=== PATIENT | male | born 1970 | race Caucasian/White ===

== ENCOUNTER 2021-08-29 17:16 | Inpatient (IN) | payer MEDICARE, MEDICAID ==
[~2021-08-29] VITALS: Ht 172.7 cm; Wt 116.7 kg
[~2021-08-29 17:16] MED LIST: BUM1T PO; CLOP75TA28 PO; LORA10CA7 PO; LOVA20TA4 PO; OMEP20CA74 OR
[2021-08-29 17:57] LABS: Basophils # (auto) 0 10 ^3/uL (0-0.2); Basophils % (auto) 0.5 % (0.0-2.0); Eosinophils # (auto) 0.1 10 ^3/uL (0-0.8); Eosinophils % (auto) 1.7 % (0.0-7.0); Hematocrit 39.2 % (41.0-53.0); Hemoglobin 12.8 g/dL (13.5-17.5); Lymphocytes # (auto) 1.3 10 ^3/uL (0.4-5.4); Lymphocytes % (auto) 20.9 % (10.0-50.0); Mean Corpuscular Hemoglobin 28.8 pg (28.0-32.0); Mean Corpuscular Hgb Conc. 32.6 g/dL (32.0-36.0); Mean Corpuscular Volume 88.5 fL (80.0-100.0); Monocytes # (auto) 0.5 10 ^3/uL (0-1.3); Monocytes % (auto) 8.3 % (0.0-12.0); Neutrophils # (auto) 4.1 10 ^3/uL (1.6-8.6); Neutrophils % (auto) 68.6 % (37.0-80.0); Nucleated Red Blood Cells % 0.1 %; Red Blood Cells 4.43 10^6/uL (4.5-5.90); Red Cell Distribution Width 14.4 % (11.8-14.3)
[2021-08-29 18:12] LABS: Albumin 2.8 g/dL (3.4-5.0); Calcium 8.1 mg/dL (8.5-10.1); Potassium 4.2 mmol/L (3.5-5.1)
[2021-08-29 18:16] LABS: BUN/Creatinine Ratio 3.8; Bilirubin, Total 0.4 mg/dL (0.2-1.0); Total Protein 6.6 g/dL (6.4-8.2)
[2021-08-29] MEDS ORDERED: MORPHINE SULFATE 4 MG/ML SYR/VIAL IV ONE (18:45)
[2021-08-29] MEDS ORDERED: ONDANSETRON HCL 4 MG/2 ML VIAL IV ONE (18:45)
[2021-08-29] MEDS ORDERED: MORPHINE SULFATE INJ 2 MG/ml SYRG IV PRN (21:00)
[2021-08-29] MEDS ORDERED: ONDANSETRON HCL 4 MG/2 ML VIAL IV PRN (21:00)
[2021-08-29] MEDS ORDERED: DEXTROSE (50%) 50ML SYRG IV PRN (21:00)
[2021-08-29] MEDS ORDERED: TEMAZEPAM 15 MG CAP PO PRN (21:00)
[2021-08-29] MEDS ORDERED: NITROGLYCERIN 0.4 MG SL TAB SL PRN (21:00)
[2021-08-29] MEDS ORDERED: ACETAMINOPHEN 325 MG TAB PO PRN (21:00)
[2021-08-29] MEDS ORDERED: ENOXAPARIN SOD 60 MG/0.6 ML SYRINGE SC ONE (21:45)
[2021-08-29] MEDS: InsuLIN REG 1unit/0.01ml Soln (100units/ml) SC SCH (22:00)
[2021-08-29] MEDS: ACCU-CHEK COMFORT CURVE STRIP VI SCH (22:00)
[2021-08-29] MEDS: ATORVASTATIN 20 MG TAB PO SCH (22:02)
[2021-08-30] VITALS (14 sets, daily range): BP systolic 70–128; BP diastolic 22–67
[2021-08-30 04:24] LABS: INR 1.06 (0.9-1.15); Partial Thromboplastin Time 31.4 sec (23.6-33.0)
[2021-08-30] MEDS ORDERED: HEPARIN DRIP/D5W 100UNITS/ML 250 ML IV SCH (06:00)
[2021-08-30] MEDS: BUMETANIDE 1 MG TAB PO SCH ×2 (06:00→18:00)
[2021-08-30 06:32] LABS: Basophils # (auto) 0 10 ^3/uL (0-0.2); Eosinophils # (auto) 0.1 10 ^3/uL (0-0.8); Eosinophils % (auto) 3.2 % (0.0-7.0); Hematocrit 39.6 % (41.0-53.0); Hemoglobin 12.8 g/dL (13.5-17.5); Lymphocytes # (auto) 1.1 10 ^3/uL (0.4-5.4); Lymphocytes % (auto) 25.6 % (10.0-50.0); Mean Corpuscular Hgb Conc. 32.3 g/dL (32.0-36.0); Mean Corpuscular Volume 90.1 fL (80.0-100.0); Monocytes # (auto) 0.5 10 ^3/uL (0-1.3); Monocytes % (auto) 11.9 % (0.0-12.0); Neutrophils # (auto) 2.5 10 ^3/uL (1.6-8.6); Neutrophils % (auto) 58.3 % (37.0-80.0); Nucleated Red Blood Cells % 0.1 %; Red Cell Distribution Width 14.5 % (11.8-14.3); White Blood Cell 4.3 10^3/uL (4.4-10.8)
[2021-08-30 06:42] LABS: Potassium 4.1 mmol/L (3.5-5.1)
[2021-08-30 06:48] LABS: Albumin 2.7 g/dL (3.4-5.0); BUN/Creatinine Ratio 4.3; Calcium 8.4 mg/dL (8.5-10.1)
[2021-08-30 06:57] LABS: Bilirubin, Total 0.4 mg/dL (0.2-1.0); Total Protein 6.4 g/dL (6.4-8.2)
[2021-08-30] MEDS: InsuLIN REG 1unit/0.01ml Soln (100units/ml) SC SCH ×4 (07:00→21:59)
[2021-08-30] MEDS: ACCU-CHEK COMFORT CURVE STRIP VI SCH ×4 (07:07→21:43)
[2021-08-30] MEDS: SEVELAMER 800 MG TAB PO SCH ×3 (08:00→18:00)
[2021-08-30] MEDS: CLOPIDOGREL BISULFATE 75 MG TAB PO SCH (10:00)
[2021-08-30] MEDS ORDERED: PANTOPRAZOLE 40 MG TAB PO SCH (10:00)
[2021-08-30] MEDS: ASPirin 81 mg TAB PO SCH (10:00)
[2021-08-30] MEDS ORDERED: ANGIOMAX 250 MG VIAL IV ONE (11:10)
[2021-08-30] MEDS ORDERED: fentaNYL CITRATE 100 MCG/2 ML VL ONE (11:11)
[2021-08-30] MEDS ORDERED: LIDOCAINE 2%HCL (LOCAL ANESTH.) INJ 10ml MDV ONE (11:11)
[2021-08-30] MEDS ORDERED: SODIUM CHL 0.9% 0 ML ONE (11:11)
[2021-08-30] MEDS ORDERED: MIDAZOLAM HCL 2MG/2ML 2ml VIAL (1mg/ml) ONE (11:11)
[2021-08-30] MEDS ORDERED: HEPARIN SODIUM (PORCINE) 5000 UNITS/ML 1ML VIAL ONE (11:26)
[2021-08-30] MEDS ORDERED: SODIUM CHL 0.9% 1000 ML BAG XX ONE (11:30)
[2021-08-30] MEDS ORDERED: cloNIDine HCL 0.1 MG TAB PO PRN (11:45)
[2021-08-30] MEDS ORDERED: CLOPIDOGREL 300 MG TAB ONE (11:46)
[2021-08-30] MEDS ORDERED: ASPirin 325 MG TAB ONE (11:46)
[2021-08-30] MEDS ORDERED: HYDROcodone-ACET 5/325MG TAB ONE (13:28)
[2021-08-30] MEDS ORDERED: HYDROcodone-ACET 5/325MG TAB PO PRN (13:30)
[2021-08-30] MEDS ORDERED: ERGO1CAP12 PO (18:10)
[2021-08-30] MEDS ORDERED: TRAZ100T3 PO (18:10)
[2021-08-30] MEDS ORDERED: HYDR-4798 (18:10)
[2021-08-30] MEDS ORDERED: INSU1INJ13 SC (18:10)
[2021-08-30] MEDS ORDERED: ALPR0.5T8 PO (18:10)
[2021-08-30] MEDS ORDERED: ALBUMIN 25% 50 ML IV ONE ×2 (20:00→20:30)
[2021-08-30] MEDS ORDERED: EPOETIN ALFA-EPBX 10,000 UNIT/1ML VIAL SC ONE (21:00)
[2021-08-30] MEDS: ATORVASTATIN 20 MG TAB PO SCH (22:03)
[2021-08-31 04:36] VITALS: BP 127/55
[2021-08-31] MEDS: BUMETANIDE 1 MG TAB PO SCH ×2 (06:00→18:00)
[2021-08-31 06:18] LABS: BUN/Creatinine Ratio 4.4; Calcium 7.8 mg/dL (8.5-10.1); Potassium 4.6 mmol/L (3.5-5.1)
[2021-08-31] MEDS: InsuLIN REG 1unit/0.01ml Soln (100units/ml) SC SCH ×4 (06:18→22:00)
[2021-08-31] MEDS: ACCU-CHEK COMFORT CURVE STRIP VI SCH ×4 (06:21→21:55)
[2021-08-31 06:29] LABS: Basophils # (auto) 0 10 ^3/uL (0-0.2); Basophils % (auto) 0.5 % (0.0-2.0); Eosinophils # (auto) 0.1 10 ^3/uL (0-0.8); Eosinophils % (auto) 2.6 % (0.0-7.0); Hematocrit 38.5 % (41.0-53.0); Hemoglobin 12.1 g/dL (13.5-17.5); Lymphocytes # (auto) 0.8 10 ^3/uL (0.4-5.4); Lymphocytes % (auto) 15.1 % (10.0-50.0); Mean Corpuscular Hemoglobin 28.5 pg (28.0-32.0); Mean Corpuscular Hgb Conc. 31.3 g/dL (32.0-36.0); Mean Corpuscular Volume 90.9 fL (80.0-100.0); Monocytes # (auto) 0.5 10 ^3/uL (0-1.3); Neutrophils # (auto) 3.7 10 ^3/uL (1.6-8.6); Neutrophils % (auto) 71.8 % (37.0-80.0); Nucleated Red Blood Cells % 0.1 %; Red Blood Cells 4.23 10^6/uL (4.5-5.90); Red Cell Distribution Width 14.6 % (11.8-14.3); White Blood Cell 5.1 10^3/uL (4.4-10.8)
[2021-08-31] MEDS: SEVELAMER 800 MG TAB PO SCH ×2 (08:23→18:29)
[2021-08-31] MEDS ORDERED: ALPRAZolam 0.5 MG TAB PO PRN ×2 (08:45→12:16)
[2021-08-31 09:00] VITALS: BP 109/42
[2021-08-31] MEDS ORDERED: ALL100T PO (09:16)
[2021-08-31] MEDS ORDERED: ALPR0.5T PO (09:30)
[2021-08-31] MEDS ORDERED: CALC667C5 PO (09:30)
[2021-08-31] MEDS ORDERED: SIMV-8 PO (09:30)
[2021-08-31] MEDS ORDERED: INSU100I33 SC (09:30)
[2021-08-31] MEDS ORDERED: PAR20T PO (09:30)
[2021-08-31] MEDS ORDERED: ALB5IS NEB (09:30)
[2021-08-31] MEDS ORDERED: LORA-483 PO (09:30)
[2021-08-31] MEDS ORDERED: MONT-8 PO (09:30)
[2021-08-31] MEDS ORDERED: OME20GT PO (09:30)
[2021-08-31] MEDS ORDERED: GABA300C10 PO (09:30)
[2021-08-31] MEDS ORDERED: B-COTAB94 OR (09:30)
[2021-08-31] MEDS ORDERED: FENO145T27 PO (09:30)
[2021-08-31] MEDS ORDERED: HYDR-4798 PO (09:30)
[2021-08-31] MEDS ORDERED: SEVE800T8 PO (09:30)
[2021-08-31] MEDS ORDERED: TRAZ100T3 PO (09:30)
[2021-08-31] MEDS: ASPirin 81 mg TAB PO SCH (10:17)
[2021-08-31] MEDS: CLOPIDOGREL BISULFATE 75 MG TAB PO SCH (10:17)
[2021-08-31] MEDS ORDERED: ERGOCALCIFEROL 50,000 UNIT(1.25MG) CAP PO SCH (12:15)
[2021-08-31] MEDS ORDERED: HYDROcodone-ACET 10/325MG TAB PO PRN (12:15)
[2021-08-31 13:00] VITALS: BP 107/38
[2021-08-31] MEDS ORDERED: CALCIUM ACETATE 667 MG CAP PO SCH ×2 (14:00)
[2021-08-31] MEDS ORDERED: PATIENTS OWN MEDICATION (Sevelamer Carbonate (Renvela) 2 TAB) PO SCH (14:00)
[2021-08-31] MEDS: ALPRAZolam 0.5 MG TAB PO SCH ×2 (14:01→21:44)
[2021-08-31] MEDS ORDERED: diphenhdrAMINE HCL 25 MG CAP PO ONE (15:30)
[2021-08-31] MEDS ORDERED: PANTOPRAZOLE 40 MG/10 ML VIAL INJ IV ONE (16:00)
[2021-08-31 16:56] VITALS: BP 121/51
[2021-08-31] MEDS ORDERED: PATIENTS OWN MEDICATION (Simvastatin 1 TAB) PO SCH (18:00)
[2021-08-31] MEDS: CALCIUM ACETATE 667 MG CAP PO SCH (18:29)
[2021-08-31 20:00] VITALS: BP 130/61
[2021-08-31 22:00] VITALS: BP 130/61
[2021-08-31] MEDS ORDERED: traZODone HCL 50 MG TAB PO SCH (22:00)
[2021-08-31] MEDS ORDERED: PATIENTS OWN MEDICATION (Fenofibrate 160 MG) PO SCH (22:00)
[2021-08-31] MEDS ORDERED: MONTELUKAST SODIUM 10 MG TAB PO SCH (22:00)
[2021-08-31] MEDS ORDERED: GABAPENTIN 300 MG CAP PO SCH (22:00)
[2021-08-31] MEDS ORDERED: ATORVASTATIN 20 MG TAB PO SCH (22:00)
[2021-08-31] MEDS ORDERED: PANTOPRAZOLE 40 MG/10 ML VIAL INJ IV SCH (22:00)
[2021-09-01 05:00] VITALS: BP 142/54
[2021-09-01 05:38] LABS: Basophils # (auto) 0 10 ^3/uL (0-0.2); Basophils % (auto) 0.6 % (0.0-2.0); Eosinophils # (auto) 0.2 10 ^3/uL (0-0.8); Eosinophils % (auto) 4.5 % (0.0-7.0); Hematocrit 36.5 % (41.0-53.0); Hemoglobin 12.3 g/dL (13.5-17.5); Lymphocytes # (auto) 0.8 10 ^3/uL (0.4-5.4); Lymphocytes % (auto) 20.9 % (10.0-50.0); Mean Corpuscular Hemoglobin 29.8 pg (28.0-32.0); Mean Corpuscular Hgb Conc. 33.6 g/dL (32.0-36.0); Mean Corpuscular Volume 88.8 fL (80.0-100.0); Monocytes # (auto) 0.4 10 ^3/uL (0-1.3); Monocytes % (auto) 9.9 % (0.0-12.0); Neutrophils # (auto) 2.5 10 ^3/uL (1.6-8.6); Neutrophils % (auto) 64.1 % (37.0-80.0); Red Blood Cells 4.12 10^6/uL (4.5-5.90); Red Cell Distribution Width 14.7 % (11.8-14.3); White Blood Cell 3.9 10^3/uL (4.4-10.8)
[2021-09-01] MEDS: BUMETANIDE 1 MG TAB PO SCH ×3 (05:42→18:00)
[2021-09-01] MEDS: ALPRAZolam 0.5 MG TAB PO SCH ×2 (05:42→14:34)
[2021-09-01] MEDS: ACCU-CHEK COMFORT CURVE STRIP VI SCH ×3 (05:43→17:00)
[2021-09-01] MEDS: InsuLIN REG 1unit/0.01ml Soln (100units/ml) SC SCH ×3 (06:03→17:00)
[2021-09-01 06:09] LABS: Potassium 4.7 mmol/L (3.5-5.1)
[2021-09-01 06:13] LABS: BUN/Creatinine Ratio 5.3
[2021-09-01 06:21] LABS: % Iron Saturation 11.7 % (20-55)
[2021-09-01] MEDS ORDERED: SODIUM CHL 0.9% 1000 ML BAG XX ONE (07:00)
[2021-09-01] MEDS ORDERED: OMEPRAZOLE 20MG/10ML ORAL SUSP PO SCH (08:00)
[2021-09-01] MEDS ORDERED: LORATADINE 10 MG TAB PO SCH (08:00)
[2021-09-01] MEDS ORDERED: INSULIN DEGLUDEC 32 UNIT SC SCH (08:00)
[2021-09-01 09:00] VITALS: BP 133/64
[2021-09-01] MEDS: CALCIUM ACETATE 667 MG CAP PO SCH ×2 (09:02→12:15)
[2021-09-01] MEDS: SEVELAMER 800 MG TAB PO SCH ×2 (09:02→12:14)
[2021-09-01] MEDS ORDERED: PARoxetine 20 MG TAB PO SCH (10:00)
[2021-09-01] MEDS ORDERED: ALLOPURINOL 100 MG TAB PO SCH (10:00)
[2021-09-01] MEDS ORDERED: PANTOPRAZOLE 40 MG TAB PO SCH (10:00)
[2021-09-01] MEDS: CLOPIDOGREL BISULFATE 75 MG TAB PO SCH (10:40)
[2021-09-01] MEDS: ASPirin 81 mg TAB PO SCH (10:40)
[2021-09-01] MEDS ORDERED: ASPI-463 PO (10:45)
[2021-09-01] MEDS ORDERED: CLOP75TA28 PO (10:45)
[2021-09-01 13:00] VITALS: BP 124/47
[2021-09-01 17:00] VITALS: BP 155/52
[2021-09-01] MEDS ORDERED: EPOETIN ALFA-EPBX 4,000 UNIT/ML VIAL SC ONE (21:00)
== END 2021-09-01 20:25 | disposition home or self-care (01) | DRG 246 ==
LOC: ER 17:16 → EDBD 17:16 → TELE 20:52 → TELE-WESTW 08-30 16:05
PROVIDERS: ADMIT Nurse Practitioner; ATTEND Family Medicine
PROC: B2111ZZ Fluoroscopy of Multiple Coronary Arteries using Low Osmolar Contrast (ICD-10-PCS; principal; 2021-08-30)
PROC: 027135Z Dilation of Coronary Artery, Two Arteries with Two Drug-eluting Intraluminal Devices, Percutaneous Approach (ICD-10-PCS; 2021-08-30)
PROC: 02C13ZZ Extirpation of Matter from Coronary Artery, Two Arteries, Percutaneous Approach (ICD-10-PCS; 2021-08-30)
PROC: 4A023N7 Measurement of Cardiac Sampling and Pressure, Left Heart, Percutaneous Approach (ICD-10-PCS; 2021-08-30)
PROC: 4A033BC Measurement of Arterial Pressure, Coronary, Percutaneous Approach (ICD-10-PCS; 2021-08-30)
PROC: B2151ZZ Fluoroscopy of Left Heart using Low Osmolar Contrast (ICD-10-PCS; 2021-08-30)
DX: I21.4 Non-ST elevation (NSTEMI) myocardial infarction (principal); N18.6 End stage renal disease; E43 Unspecified severe protein-calorie malnutrition; I12.0 Hypertensive chronic kidney disease with stage 5 chronic kidney disease or end stage renal disease; E11.22 Type 2 diabetes mellitus with diabetic chronic kidney disease; E11.40 Type 2 diabetes mellitus with diabetic neuropathy, unspecified; D63.1 Anemia in chronic kidney disease; Z20.822 Contact with and (suspected) exposure to COVID-19; E66.01 Morbid (severe) obesity due to excess calories; E78.00 Pure hypercholesterolemia, unspecified; E78.5 Hyperlipidemia, unspecified; E87.70 Fluid overload, unspecified; I25.10 Atherosclerotic heart disease of native coronary artery without angina pectoris; J44.9 Chronic obstructive pulmonary disease, unspecified; Z88.8 Allergy status to other drugs, medicaments and biological substances; Z99.2 Dependence on renal dialysis; Z68.39 Body mass index [BMI] 39.0-39.9, adult
CPT/HCPCS: 36415; 71045; 80048; 80053; 82728; 82962; 83540; 83550; 83880; 84484; 85025; 85379; 85610; 85730; 87340; 93005; 93306; 96365; 96372; 96375; 96376; 99152; 99153; 99291; C1724; C1874; C9113; G0378; J1815; J2001; J2250; J2405

== ENCOUNTER 2021-09-23 15:44 | Inpatient (IN) | payer MEDICARE, MEDICAID ==
[~2021-09-23] VITALS: Ht 177.8 cm; Wt 114.0 kg
[~2021-09-23 15:44] MED LIST changes: +ALB5IS NEB; +ALL100T PO; +ALPR0.5T PO; +ASPI-463 PO; +B-COTAB94 OR; +CALC667C5 PO; +ERGO1CAP12 PO; +FENO145T27 PO; +GABA300C10 PO; +HYDR-4798 PO; +INSU100I33 SC; +LORA-483 PO; -LORA10CA7 PO; +MONT-8 PO; +OME20GT PO; -OMEP20CA74 OR; +PAR20T PO; +SEVE800T8 PO; +SIMV-8 PO; +TRAZ100T3 PO
[2021-09-23] MEDS ORDERED: ASPirin 81 mg TAB PO ONE (16:15)
[2021-09-23 16:34] LABS: Basophils # (auto) 0.1 10 ^3/uL (0-0.2); Basophils % (auto) 0.9 % (0.0-2.0); Eosinophils # (auto) 0.1 10 ^3/uL (0-0.8); Hematocrit 39.8 % (41.0-53.0); Hemoglobin 12.9 g/dL (13.5-17.5); Lymphocytes % (auto) 14.3 % (10.0-50.0); Mean Corpuscular Hemoglobin 28.4 pg (28.0-32.0); Mean Corpuscular Hgb Conc. 32.4 g/dL (32.0-36.0); Mean Corpuscular Volume 87.7 fL (80.0-100.0); Monocytes # (auto) 0.7 10 ^3/uL (0-1.3); Monocytes % (auto) 9.7 % (0.0-12.0); Neutrophils # (auto) 5.1 10 ^3/uL (1.6-8.6); Neutrophils % (auto) 73.1 % (37.0-80.0); Red Blood Cells 4.54 10^6/uL (4.5-5.90)
[2021-09-23 16:43] LABS: Albumin 2.6 g/dL (3.4-5.0); Calcium 8.5 mg/dL (8.5-10.1); Potassium 3.8 mmol/L (3.5-5.1)
[2021-09-23 16:46] LABS: BUN/Creatinine Ratio 4.9
[2021-09-23 16:47] LABS: Bilirubin, Total 0.6 mg/dL (0.2-1.0); Total Protein 7.2 g/dL (6.4-8.2)
[2021-09-23] MEDS ORDERED: HEPARIN SODIUM (PORCINE) 5000 UNITS/ML 1ML VIAL IV ONE (17:30)
[2021-09-23] MEDS ORDERED: ONDANSETRON HCL 4 MG/2 ML VIAL IV ONE (17:45)
[2021-09-23 17:57] LABS: INR 0.99 (0.9-1.15); Partial Thromboplastin Time 31.8 sec (23.6-33.0)
[2021-09-23] MEDS: HEPARIN DRIP/D5W 100UNITS/ML 250 ML IV SCH (19:01)
[2021-09-23] MEDS ORDERED: TEMAZEPAM 15 MG CAP PO PRN (21:30)
[2021-09-23] MEDS ORDERED: MORPHINE SULFATE INJ 2 MG/ml SYRG IV PRN (21:30)
[2021-09-23] MEDS ORDERED: NITROGLYCERIN 0.4 MG SL TAB SL PRN (21:30)
[2021-09-23] MEDS ORDERED: DEXTROSE (50%) 50ML SYRG IV PRN (21:30)
[2021-09-23] MEDS ORDERED: ACETAMINOPHEN 325 MG TAB PO PRN (21:30)
[2021-09-23] MEDS ORDERED: ATORVASTATIN 20 MG TAB PO SCH (22:00)
[2021-09-24] VITALS (12 sets, daily range): BP systolic 119–150; BP diastolic 49–85
[2021-09-24] MEDS: ACCU-CHEK COMFORT CURVE STRIP VI SCH ×5 (05:34→23:33)
[2021-09-24] MEDS: InsuLIN REG 1unit/0.01ml Soln (100units/ml) SC SCH ×5 (05:34→23:34)
[2021-09-24] MEDS: HEPARIN DRIP/D5W 100UNITS/ML 250 ML IV SCH (06:49)
[2021-09-24 07:27] LABS: Basophils # (auto) 0 10 ^3/uL (0-0.2); Basophils % (auto) 0.8 % (0.0-2.0); Eosinophils # (auto) 0.2 10 ^3/uL (0-0.8); Eosinophils % (auto) 2.8 % (0.0-7.0); Hematocrit 38.8 % (41.0-53.0); Hemoglobin 12.2 g/dL (13.5-17.5); Lymphocytes # (auto) 1.1 10 ^3/uL (0.4-5.4); Lymphocytes % (auto) 19.5 % (10.0-50.0); Mean Corpuscular Hemoglobin 28.3 pg (28.0-32.0); Mean Corpuscular Hgb Conc. 31.6 g/dL (32.0-36.0); Mean Corpuscular Volume 89.7 fL (80.0-100.0); Monocytes # (auto) 0.8 10 ^3/uL (0-1.3); Monocytes % (auto) 14.1 % (0.0-12.0); Neutrophils # (auto) 3.5 10 ^3/uL (1.6-8.6); Neutrophils % (auto) 62.8 % (37.0-80.0); Nucleated Red Blood Cells % 0.3 %; Red Blood Cells 4.32 10^6/uL (4.5-5.90); White Blood Cell 5.6 10^3/uL (4.4-10.8)
[2021-09-24 07:44] LABS: INR 0.99 (0.9-1.15); Partial Thromboplastin Time 53.5 sec (23.6-33.0)
[2021-09-24 07:46] LABS: Alanine Aminotransferase 22 U/L (16-61); Albumin 2.3 g/dL (3.4-5.0); Anion Gap 11 (5-15); Aspartate Aminotransferase 48 U/L (15-37); BUN/Creatinine Ratio 5.1; Blood Urea Nitrogen 52 mg/dL (7-18); Carbon Dioxide 25 mmol/L (21-32); Chloride 102 mmol/L (98-107); GFR African American 7 mL/min; GFR Non-African American 6 mL/min; Glucose 184 mg/dL (74-106); Potassium 4.2 mmol/L (3.5-5.1); Sodium 138 mmol/L (136-145)
[2021-09-24 07:48] LABS: Alkaline Phosphatase 83 U/L (45-117); Bilirubin, Total 0.5 mg/dL (0.2-1.0); Total Protein 6.4 g/dL (6.4-8.2)
[2021-09-24] MEDS ORDERED: MORPHINE SULFATE INJ 2 MG/ml SYRG IV ONE (08:00)
[2021-09-24 08:59] LABS: Cholesterol 90 mg/dL (< 200); Triglycerides 93 mg/dL (< 150)
[2021-09-24 09:02] LABS: HDL Cholesterol 40 mg/dL (40-59); LDL Cholesterol 46 mg/dL (< 100)
[2021-09-24] MEDS ORDERED: VERAPAMIL 2.5MG/ML INJ 2ML VIAL IV ONE (09:45)
[2021-09-24] MEDS ORDERED: ANGIOMAX 250 MG VIAL IV ONE (09:45)
[2021-09-24] MEDS ORDERED: MIDAZOLAM HCL 2MG/2ML 2ml VIAL (1mg/ml) ONE (09:45)
[2021-09-24] MEDS ORDERED: fentaNYL CITRATE 100 MCG/2 ML VL ONE (09:45)
[2021-09-24] MEDS ORDERED: SODIUM CHL 0.9% 0 ML ONE (09:45)
[2021-09-24] MEDS ORDERED: CLOPIDOGREL BISULFATE 75 MG TAB PO SCH (10:00)
[2021-09-24] MEDS ORDERED: IODIXANOL 320MG/ML 100ML BTL IV ONE ×2 (10:33→11:02)
[2021-09-24] MEDS ORDERED: HEPARIN SODIUM (PORCINE) 5000 UNITS/ML 1ML VIAL ONE (10:37)
[2021-09-24] MEDS ORDERED: EPTIFIBATIDE INJ (2MG/ML) 10ML VIAL IV ONE (10:57)
[2021-09-24] MEDS ORDERED: TICAGRELOR 90 MG TAB ONE (11:13)
[2021-09-24] MEDS ORDERED: HYDR-4798 PO (17:03)
[2021-09-24] MEDS: PANTOPRAZOLE 40 MG/10 ML VIAL INJ IV SCH (17:53)
[2021-09-24] MEDS: ASPirin 81 mg TAB PO SCH (18:06)
[2021-09-24] MEDS: ONDANSETRON HCL 4 MG/2 ML VIAL IV PRN (18:58)
[2021-09-24] MEDS: TICAGRELOR 90 MG TAB PO SCH (21:38)
[2021-09-24] MEDS: ATORVASTATIN 20 MG TAB PO SCH (21:38)
[2021-09-24] MEDS: METOPROLOL TARTRATE 25 MG TAB PO SCH (21:39)
[2021-09-24] MEDS ORDERED: TICAGRELOR 90 MG TAB PO SCH (22:00)
[2021-09-25 04:55] VITALS: BP 139/52
[2021-09-25 05:22] LABS: Basophils # (auto) 0.1 10 ^3/uL (0-0.2); Basophils % (auto) 0.9 % (0.0-2.0); Eosinophils # (auto) 0.2 10 ^3/uL (0-0.8); Eosinophils % (auto) 2.8 % (0.0-7.0); Hematocrit 37.6 % (41.0-53.0); Hemoglobin 12.4 g/dL (13.5-17.5); Lymphocytes # (auto) 0.9 10 ^3/uL (0.4-5.4); Lymphocytes % (auto) 15.7 % (10.0-50.0); Mean Corpuscular Hgb Conc. 32.9 g/dL (32.0-36.0); Mean Corpuscular Volume 88.4 fL (80.0-100.0); Monocytes # (auto) 0.7 10 ^3/uL (0-1.3); Monocytes % (auto) 12.5 % (0.0-12.0); Neutrophils # (auto) 3.8 10 ^3/uL (1.6-8.6); Neutrophils % (auto) 68.1 % (37.0-80.0); Nucleated Red Blood Cells % 0.1 %; Red Blood Cells 4.26 10^6/uL (4.5-5.90); White Blood Cell 5.6 10^3/uL (4.4-10.8)
[2021-09-25] MEDS: ACCU-CHEK COMFORT CURVE STRIP VI SCH ×4 (05:33→23:23)
[2021-09-25] MEDS: InsuLIN REG 1unit/0.01ml Soln (100units/ml) SC SCH ×4 (05:34→23:24)
[2021-09-25 05:37] LABS: Potassium 4.4 mmol/L (3.5-5.1)
[2021-09-25 05:49] LABS: Albumin 2.2 g/dL (3.4-5.0); BUN/Creatinine Ratio 5.8; Bilirubin, Total 0.4 mg/dL (0.2-1.0); Total Protein 6.4 g/dL (6.4-8.2)
[2021-09-25] MEDS ORDERED: SODIUM CHL 0.9% 1000 ML BAG XX ONE (07:00)
[2021-09-25 09:00] VITALS: BP 138/66
[2021-09-25] MEDS: PANTOPRAZOLE 40 MG/10 ML VIAL INJ IV SCH (09:04)
[2021-09-25] MEDS: ASPirin 81 mg TAB PO SCH (09:05)
[2021-09-25] MEDS: TICAGRELOR 90 MG TAB PO SCH ×2 (09:11→21:57)
[2021-09-25] MEDS: HYDROcodone-ACET 10/325MG TAB PO PRN (09:12)
[2021-09-25] MEDS: METOPROLOL TARTRATE 25 MG TAB PO SCH ×2 (10:00→22:04)
[2021-09-25] MEDS: ONDANSETRON HCL 4 MG/2 ML VIAL IV PRN (10:06)
[2021-09-25] MEDS: APIXABAN 5 MG TAB PO SCH ×2 (10:15→21:57)
[2021-09-25 10:52] LABS: Free T3 1.78 pg/mL (2.3-4.2); Free T4 (Free Thyroxine) 0.72 ng/dL (0.89-1.76)
[2021-09-25 13:00] VITALS: BP 131/56
[2021-09-25 17:00] VITALS: BP 140/38
[2021-09-25] MEDS: amLODIPine BESYLATE 5 MG TAB PO SCH (17:59)
[2021-09-25] MEDS: ATORVASTATIN 20 MG TAB PO SCH (21:57)
[2021-09-25 22:00] VITALS: BP 97/33
[2021-09-25] MEDS ORDERED: ALPRAZolam 0.5 MG TAB PO SCH (22:00)
[2021-09-26 05:00] VITALS: BP 108/30
[2021-09-26] MEDS: ACCU-CHEK COMFORT CURVE STRIP VI SCH ×2 (05:29→13:07)
[2021-09-26] MEDS: InsuLIN REG 1unit/0.01ml Soln (100units/ml) SC SCH ×2 (05:30→13:06)
[2021-09-26] MEDS ORDERED: METO25TA5 PO (08:06)
[2021-09-26] MEDS ORDERED: APIX5TAB PO (08:06)
[2021-09-26] MEDS ORDERED: TICA90TA PO (08:06)
[2021-09-26 08:20] VITALS: BP 131/37
[2021-09-26 09:00] VITALS: BP 131/37
[2021-09-26] MEDS: APIXABAN 5 MG TAB PO SCH (09:46)
[2021-09-26] MEDS: PANTOPRAZOLE 40 MG/10 ML VIAL INJ IV SCH (09:46)
[2021-09-26] MEDS: amLODIPine BESYLATE 5 MG TAB PO SCH (09:48)
[2021-09-26] MEDS: ASPirin 81 mg TAB PO SCH (09:48)
[2021-09-26] MEDS: METOPROLOL TARTRATE 25 MG TAB PO SCH (09:49)
[2021-09-26] MEDS: HYDROcodone-ACET 10/325MG TAB PO PRN (09:50)
[2021-09-26] MEDS: TICAGRELOR 90 MG TAB PO SCH (11:10)
[2021-09-26 12:37] VITALS: BP 131/37
[2021-09-26 13:00] VITALS: BP 120/43
== END 2021-09-26 14:35 | disposition home or self-care (01) | DRG 246 ==
LOC: EDBD 15:44 → ER 15:44 → TELE 21:22 → TELE-CENTR 09-24 15:46
PROVIDERS: ADMIT Nurse Practitioner; ATTEND Family Medicine
PROC: 027034Z Dilation of Coronary Artery, One Artery with Drug-eluting Intraluminal Device, Percutaneous Approach (ICD-10-PCS; principal; 2021-09-24)
PROC: 4A023N7 Measurement of Cardiac Sampling and Pressure, Left Heart, Percutaneous Approach (ICD-10-PCS; 2021-09-24)
PROC: B211YZZ Fluoroscopy of Multiple Coronary Arteries using Other Contrast (ICD-10-PCS; 2021-09-24)
PROC: B215YZZ Fluoroscopy of Left Heart using Other Contrast (ICD-10-PCS; 2021-09-24)
PROC: B240ZZ3 Ultrasonography of Single Coronary Artery, Intravascular (ICD-10-PCS; 2021-09-24)
PROC: 3E073PZ Introduction of Platelet Inhibitor into Coronary Artery, Percutaneous Approach (ICD-10-PCS; 2021-09-24)
PROC: 5A1D70Z Performance of Urinary Filtration, Intermittent, Less than 6 Hours Per Day (ICD-10-PCS; 2021-09-25)
DX: T82.855A Stenosis of coronary artery stent, initial encounter (principal); I21.4 Non-ST elevation (NSTEMI) myocardial infarction; N18.6 End stage renal disease; I12.0 Hypertensive chronic kidney disease with stage 5 chronic kidney disease or end stage renal disease; I82.621 Acute embolism and thrombosis of deep veins of right upper extremity; E11.22 Type 2 diabetes mellitus with diabetic chronic kidney disease; E11.42 Type 2 diabetes mellitus with diabetic polyneuropathy; E66.01 Morbid (severe) obesity due to excess calories; E78.5 Hyperlipidemia, unspecified; I25.10 Atherosclerotic heart disease of native coronary artery without angina pectoris; Z20.822 Contact with and (suspected) exposure to COVID-19; Y84.0 Cardiac catheterization as the cause of abnormal reaction of the patient, or of later complication, without mention of misadventure at the time of the procedure; J45.909 Unspecified asthma, uncomplicated; Z79.4 Long term (current) use of insulin; Z99.2 Dependence on renal dialysis; I25.2 Old myocardial infarction; Z95.5 Presence of coronary angioplasty implant and graft; Y92.89 Other specified places as the place of occurrence of the external cause; Z68.36 Body mass index [BMI] 36.0-36.9, adult; Z88.1 Allergy status to other antibiotic agents
CPT/HCPCS: 36415; 71045; 76881; 78582; 80053; 80061; 82962; 83036; 83880; 84439; 84443; 84481; 84484; 85025; 85610; 85730; 90935; 92928; 92978; 93005; 93458; 93971; 96374; 96375; 99152; 99153; C1874; C1887; C9113; G0378; J1815; J2250; J2405; Q9967

== ENCOUNTER 2021-09-27 10:12 | Inpatient (IN) | payer MEDICARE, MEDICAID ==
[~2021-09-27] VITALS: Ht 182.9 cm; Wt 119.1 kg
[~2021-09-27 10:12] MED LIST changes: +APIX5TAB PO; +METO25TA5 PO; +TICA90TA PO
[2021-09-27 11:05] LABS: Basophils # (auto) 0 10 ^3/uL (0-0.2); Basophils % (auto) 0.5 % (0.0-2.0); Eosinophils # (auto) 0.1 10 ^3/uL (0-0.8); Eosinophils % (auto) 1.6 % (0.0-7.0); Hematocrit 37.2 % (41.0-53.0); Hemoglobin 11.7 g/dL (13.5-17.5); Lymphocytes # (auto) 0.7 10 ^3/uL (0.4-5.4); Lymphocytes % (auto) 14.7 % (10.0-50.0); Mean Corpuscular Hemoglobin 27.6 pg (28.0-32.0); Mean Corpuscular Hgb Conc. 31.4 g/dL (32.0-36.0); Mean Corpuscular Volume 87.9 fL (80.0-100.0); Monocytes # (auto) 0.6 10 ^3/uL (0-1.3); Monocytes % (auto) 10.9 % (0.0-12.0); Neutrophils # (auto) 3.7 10 ^3/uL (1.6-8.6); Neutrophils % (auto) 72.3 % (37.0-80.0); Nucleated Red Blood Cells % 0.1 %; Red Blood Cells 4.23 10^6/uL (4.5-5.90); Red Cell Distribution Width 15.8 % (11.8-14.3); White Blood Cell 5.1 10^3/uL (4.4-10.8)
[2021-09-27 11:19] LABS: Albumin 2.6 g/dL (3.4-5.0); BUN/Creatinine Ratio 5.7; Calcium 8.9 mg/dL (8.5-10.1); Magnesium 2.3 mg/dL (1.6-2.6)
[2021-09-27 11:21] LABS: Bilirubin, Total 0.7 mg/dL (0.2-1.0); Partial Thromboplastin Time 32.1 sec (23.6-33.0); Phosphorus 3.8 mg/dL (2.5-4.90); Total Protein 6.9 g/dL (6.4-8.2)
[2021-09-27] MEDS ORDERED: ASPirin 325 MG TAB PO ONE (12:15)
[2021-09-27] MEDS ORDERED: NITROGLYCERIN 0.4 MG SL TAB SL PRN (12:30)
[2021-09-27] MEDS ORDERED: TICAGRELOR 90 MG TAB PO ONE (12:30)
[2021-09-27] MEDS ORDERED: MORPHINE SULFATE INJ 2 MG/ml SYRG IV PRN (12:30)
[2021-09-27] MEDS ORDERED: AMIODARONE HCL 200 MG TAB PO ONE (12:30)
[2021-09-27] MEDS ORDERED: DEXTROSE (50%) 50ML SYRG IV PRN (14:00)
[2021-09-27] MEDS: InsuLIN REG 1unit/0.01ml Soln (100units/ml) SC SCH ×2 (17:41→22:10)
[2021-09-27] MEDS: ACCU-CHEK COMFORT CURVE STRIP VI SCH ×2 (17:43→22:10)
[2021-09-27] MEDS ORDERED: AMIODARONE HCL 150 MG in D5W 5% 100 ML IV ONE (18:30)
[2021-09-27] MEDS ORDERED: AMIODARONE 450mg/250ml AE 250 ML IV SCH (18:45)
[2021-09-27] MEDS ORDERED: AMIODARONE HCL 200 MG TAB PO SCH (22:00)
[2021-09-27] MEDS: TICAGRELOR 90 MG TAB PO SCH (22:08)
[2021-09-27] MEDS: INSULIN LANTUS (GLARGINE) 1 /0.01ml (100units/ml) SC SCH (22:11)
[2021-09-28] VITALS (7 sets, daily range): BP systolic 123–138; BP diastolic 45–65
[2021-09-28] MEDS: AMIODARONE 450mg/250ml AE 250 ML IV SCH (01:09)
[2021-09-28 05:35] LABS: Potassium 4.2 mmol/L (3.5-5.1)
[2021-09-28 05:56] LABS: Albumin 2.4 g/dL (3.4-5.0); BUN/Creatinine Ratio 5.2; Bilirubin, Total 0.5 mg/dL (0.2-1.0); Calcium 8.3 mg/dL (8.5-10.1); Total Protein 6.7 g/dL (6.4-8.2)
[2021-09-28 06:02] LABS: Basophils # (auto) 0 10 ^3/uL (0-0.2); Basophils % (auto) 0.7 % (0.0-2.0); Eosinophils # (auto) 0.2 10 ^3/uL (0-0.8); Eosinophils % (auto) 3.6 % (0.0-7.0); Hematocrit 36.4 % (41.0-53.0); Hemoglobin 11.6 g/dL (13.5-17.5); Lymphocytes # (auto) 0.8 10 ^3/uL (0.4-5.4); Lymphocytes % (auto) 16.3 % (10.0-50.0); Mean Corpuscular Hemoglobin 27.9 pg (28.0-32.0); Mean Corpuscular Hgb Conc. 31.8 g/dL (32.0-36.0); Mean Corpuscular Volume 87.7 fL (80.0-100.0); Monocytes # (auto) 0.6 10 ^3/uL (0-1.3); Monocytes % (auto) 12.4 % (0.0-12.0); Neutrophils # (auto) 3.2 10 ^3/uL (1.6-8.6); Nucleated Red Blood Cells % 0.2 %; Red Blood Cells 4.15 10^6/uL (4.5-5.90); Red Cell Distribution Width 15.4 % (11.8-14.3); White Blood Cell 4.7 10^3/uL (4.4-10.8)
[2021-09-28 06:03] LABS: INR 1.05 (0.9-1.15); Partial Thromboplastin Time 32.4 sec (23.6-33.0)
[2021-09-28] MEDS: INSULIN LANTUS (GLARGINE) 1 /0.01ml (100units/ml) SC SCH ×2 (07:00→22:02)
[2021-09-28] MEDS: ACCU-CHEK COMFORT CURVE STRIP VI SCH ×4 (07:05→22:04)
[2021-09-28] MEDS: InsuLIN REG 1unit/0.01ml Soln (100units/ml) SC SCH ×4 (07:23→21:59)
[2021-09-28] MEDS: ASPirin 81 mg TAB PO SCH (10:38)
[2021-09-28] MEDS: TICAGRELOR 90 MG TAB PO SCH ×2 (10:38→22:07)
[2021-09-28] MEDS ORDERED: ANGIOMAX 250 MG VIAL IV ONE (16:42)
[2021-09-28] MEDS ORDERED: HEPARIN SODIUM (PORCINE) 5000 UNITS/ML 1ML VIAL ONE (16:42)
[2021-09-28] MEDS ORDERED: SODIUM CHL 0.9% 0 ML ONE (16:43)
[2021-09-28] MEDS ORDERED: LIDOCAINE 2%HCL (LOCAL ANESTH.) INJ 10ml MDV ONE (16:43)
[2021-09-28] MEDS ORDERED: fentaNYL CITRATE 100 MCG/2 ML VL ONE (16:43)
[2021-09-28] MEDS ORDERED: MIDAZOLAM HCL 2MG/2ML 2ml VIAL (1mg/ml) ONE (16:43)
[2021-09-28] MEDS ORDERED: VERAPAMIL 2.5MG/ML INJ 2ML VIAL IV ONE (16:43)
[2021-09-28] MEDS ORDERED: AMIODARONE HCL 200 MG TAB PO SCH (22:00)
[2021-09-28] MEDS: SODIUM CHLOR 0.9% PF (SALINE LOCK) 10ML VIAL/SYR IV SCH (22:05)
[2021-09-28] MEDS ORDERED: HYDROcodone-ACET 10/325MG TAB PO PRN (22:45)
[2021-09-28] MEDS ORDERED: ALPRAZolam 0.5 MG TAB PO PRN (22:45)
[2021-09-29 05:00] VITALS: BP 128/42
[2021-09-29] MEDS: SODIUM CHLOR 0.9% PF (SALINE LOCK) 10ML VIAL/SYR IV SCH ×3 (06:00→22:00)
[2021-09-29] MEDS ORDERED: SODIUM CHL 0.9% 1000 ML BAG XX ONE (07:00)
[2021-09-29] MEDS: InsuLIN REG 1unit/0.01ml Soln (100units/ml) SC SCH ×4 (07:03→22:00)
[2021-09-29] MEDS: INSULIN LANTUS (GLARGINE) 1 /0.01ml (100units/ml) SC SCH ×2 (07:03→22:38)
[2021-09-29] MEDS: ACCU-CHEK COMFORT CURVE STRIP VI SCH ×4 (07:03→22:00)
[2021-09-29 09:00] VITALS: BP 126/84
[2021-09-29] MEDS: ASPirin 81 mg TAB PO SCH (09:51)
[2021-09-29] MEDS: TICAGRELOR 90 MG TAB PO SCH ×2 (09:52→22:36)
[2021-09-29 13:00] VITALS: BP 120/37
[2021-09-29 17:05] VITALS: BP 125/41
[2021-09-29] MEDS ORDERED: ALPRAZolam 0.5 MG TAB PO PRN (17:15)
[2021-09-29] MEDS ORDERED: HYDROcodone-ACET 5/325MG TAB PO PRN (17:15)
[2021-09-29] MEDS: GABAPENTIN 100 MG CAP PO SCH (17:53)
[2021-09-29] MEDS ORDERED: SEVELAMER 800 MG TAB PO SCH (18:00)
[2021-09-29] MEDS: SEVELAMER 800 MG TAB PO SCH (18:04)
[2021-09-29] MEDS: CALCIUM ACETATE 667 MG CAP PO SCH (19:17)
[2021-09-29 22:00] VITALS: BP 145/51
[2021-09-29] MEDS ORDERED: MONTELUKAST SODIUM 10 MG TAB PO SCH (22:00)
[2021-09-29] MEDS ORDERED: traZODone HCL 50 MG TAB PO PRN (22:00)
[2021-09-29] MEDS: MUPIROCIN 2% OINT 15gm or 22gm EACHNOSTRI SCH (22:36)
[2021-09-30 05:00] VITALS: BP 109/67
[2021-09-30] MEDS: SODIUM CHLOR 0.9% PF (SALINE LOCK) 10ML VIAL/SYR IV SCH (06:23)
[2021-09-30] MEDS: ACCU-CHEK COMFORT CURVE STRIP VI SCH ×2 (06:29→11:30)
[2021-09-30] MEDS: INSULIN LANTUS (GLARGINE) 1 /0.01ml (100units/ml) SC SCH (06:29)
[2021-09-30] MEDS: InsuLIN REG 1unit/0.01ml Soln (100units/ml) SC SCH ×2 (06:29→11:30)
[2021-09-30] MEDS: CALCIUM ACETATE 667 MG CAP PO SCH ×2 (08:36→12:00)
[2021-09-30] MEDS: GABAPENTIN 100 MG CAP PO SCH (08:36)
[2021-09-30] MEDS: ASPirin 81 mg TAB PO SCH (08:36)
[2021-09-30] MEDS: MUPIROCIN 2% OINT 15gm or 22gm EACHNOSTRI SCH (08:36)
[2021-09-30] MEDS: SEVELAMER 800 MG TAB PO SCH ×2 (08:36→12:00)
[2021-09-30] MEDS: TICAGRELOR 90 MG TAB PO SCH (08:36)
[2021-09-30] MEDS: AMIODARONE 450mg/250ml AE 250 ML IV SCH ×2 (08:37→08:38)
[2021-09-30 09:00] VITALS: BP 123/49
[2021-09-30] MEDS ORDERED: ALLOPURINOL 100 MG TAB PO SCH (10:00)
[2021-09-30] MEDS ORDERED: MUPIROCIN 2% OINT 15gm or 22gm EACHNOSTRI SCH (10:00)
[2021-09-30] MEDS ORDERED: PARoxetine 20 MG TAB PO SCH (10:00)
[2021-09-30 13:00] VITALS: BP 139/57
== END 2021-09-30 12:30 | disposition home or self-care (01) | DRG 280 ==
LOC: EDUNIT# 10:12 → ER 10:12 → EDBD 10:12 → TELE 13:38 → TELE-WESTW 09-28 18:49
PROVIDERS: ADMIT Registered Nurse; ATTEND Internal Medicine
PROC: B2111ZZ Fluoroscopy of Multiple Coronary Arteries using Low Osmolar Contrast (ICD-10-PCS; 2021-09-28)
PROC: 5A1D70Z Performance of Urinary Filtration, Intermittent, Less than 6 Hours Per Day (ICD-10-PCS; principal; 2021-09-29)
DX: I21.4 Non-ST elevation (NSTEMI) myocardial infarction (principal); N18.6 End stage renal disease; I13.2 Hypertensive heart and chronic kidney disease with heart failure and with stage 5 chronic kidney disease, or end stage renal disease; I47.2 Ventricular tachycardia; I82.621 Acute embolism and thrombosis of deep veins of right upper extremity; N25.81 Secondary hyperparathyroidism of renal origin; E11.22 Type 2 diabetes mellitus with diabetic chronic kidney disease; E11.65 Type 2 diabetes mellitus with hyperglycemia; A49.02 Methicillin resistant Staphylococcus aureus infection, unspecified site; F32.A Depression, unspecified; K21.9 Gastro-esophageal reflux disease without esophagitis; Z20.822 Contact with and (suspected) exposure to COVID-19; E66.01 Morbid (severe) obesity due to excess calories; E78.5 Hyperlipidemia, unspecified; E88.09 Other disorders of plasma-protein metabolism, not elsewhere classified; I50.9 Heart failure, unspecified; I25.10 Atherosclerotic heart disease of native coronary artery without angina pectoris; J45.909 Unspecified asthma, uncomplicated; Z79.4 Long term (current) use of insulin; Z99.2 Dependence on renal dialysis; I25.2 Old myocardial infarction; Z91.19 Patient's noncompliance with other medical treatment and regimen; Z98.61 Coronary angioplasty status; Z88.0 Allergy status to penicillin; Z88.1 Allergy status to other antibiotic agents; Z68.35 Body mass index [BMI] 35.0-35.9, adult
CPT/HCPCS: 36415; 71045; 80053; 82962; 83735; 83880; 84100; 84484; 85025; 85610; 85730; 86850; 86900; 86901; 87081; 90935; 93005; 93454; 96365; 96375; 99152; 99291; G0378; J1815; J2001; J2250; J7060

== ENCOUNTER 2021-11-14 13:45 | Inpatient (IN) | payer MEDICARE, MEDICAID ==
[~2021-11-14] VITALS: Ht 177.8 cm; Wt 120.1 kg
[2021-11-14 17:00] VITALS: BP 114/44
[2021-11-14 20:00] VITALS: BP 137/59
[2021-11-14] MEDS: MORPHINE SULFATE INJ 2 MG/ml SYRG IV PRN (20:58)
[2021-11-14] MEDS: ONDANSETRON HCL 4 MG/2 ML VIAL IV PRN (20:59)
[2021-11-14 22:00] VITALS: BP 137/59
[2021-11-14] MEDS ORDERED: DEXTROSE (50%) 50ML SYRG IV PRN (22:45)
[2021-11-15] MEDS ORDERED: NITROGLYCERIN 0.4 MG SL TAB SL PRN (04:45)
[2021-11-15] MEDS ORDERED: MORPHINE SULFATE INJ 2 MG/ml SYRG IV PRN (04:45)
[2021-11-15 05:00] VITALS: BP 149/50
[2021-11-15] MEDS: ACCU-CHEK COMFORT CURVE STRIP VI SCH ×4 (06:16→21:49)
[2021-11-15] MEDS: ONDANSETRON HCL 4 MG/2 ML VIAL IV PRN ×4 (06:20→20:26)
[2021-11-15] MEDS: MORPHINE SULFATE INJ 2 MG/ml SYRG IV PRN ×4 (06:20→20:27)
[2021-11-15] MEDS: InsuLIN REG 1unit/0.01ml Soln (100units/ml) SC SCH ×4 (06:26→21:50)
[2021-11-15] MEDS ORDERED: ALBUMIN 25% 100 ML IV PRN (07:15)
[2021-11-15 08:00] VITALS: BP 137/59
[2021-11-15 08:13] LABS: Basophils # (auto) 0 10 ^3/uL (0-0.2); Basophils % (auto) 1.1 % (0.0-2.0); Eosinophils # (auto) 0.1 10 ^3/uL (0-0.8); Hemoglobin 9.5 g/dL (13.5-17.5); Lymphocytes # (auto) 0.6 10 ^3/uL (0.4-5.4); Lymphocytes % (auto) 16.4 % (10.0-50.0); Mean Corpuscular Hemoglobin 29.1 pg (28.0-32.0); Mean Corpuscular Hgb Conc. 31.6 g/dL (32.0-36.0); Mean Corpuscular Volume 91.9 fL (80.0-100.0); Monocytes # (auto) 0.4 10 ^3/uL (0-1.3); Monocytes % (auto) 9.7 % (0.0-12.0); Neutrophils # (auto) 2.6 10 ^3/uL (1.6-8.6); Neutrophils % (auto) 69.8 % (37.0-80.0); Nucleated Red Blood Cells % 0.1 %; Red Blood Cells 3.26 10^6/uL (4.5-5.90); White Blood Cell 3.7 10^3/uL (4.4-10.8)
[2021-11-15 08:27] LABS: INR 1.11 (0.9-1.15); Partial Thromboplastin Time 32.4 sec (24.6-33.4)
[2021-11-15 08:33] LABS: Albumin 2.9 g/dL (3.4-5.0); Calcium 8.5 mg/dL (8.5-10.1); Potassium 3.8 mmol/L (3.5-5.1)
[2021-11-15 08:36] LABS: BUN/Creatinine Ratio 4.7
[2021-11-15 08:37] LABS: Bilirubin, Total 0.9 mg/dL (0.2-1.0); Total Protein 6.2 g/dL (6.4-8.2)
[2021-11-15] MEDS: CALCIUM ACETATE 667 MG CAP PO SCH ×3 (08:37→18:18)
[2021-11-15] MEDS: SEVELAMER 800 MG TAB PO SCH ×3 (08:37→18:18)
[2021-11-15 09:00] VITALS: BP 126/57
[2021-11-15] MEDS ORDERED: PATIENTS OWN MEDICATION (Eliquis 5 MG) PO SCH (10:00)
[2021-11-15] MEDS ORDERED: ADENOSINE 103 MG in GIVE UN-DILUTED 0 ML IV ONE (10:15)
[2021-11-15] MEDS: TICAGRELOR 90 MG TAB PO SCH ×2 (11:41→21:33)
[2021-11-15] MEDS: ENOXAPARIN SOD 120 MG/0.8 ML SYRINGE SC SCH (11:41)
[2021-11-15] MEDS: ASPirin 81 mg TAB PO SCH (11:42)
[2021-11-15] MEDS: PARoxetine 20 MG TAB PO SCH (11:42)
[2021-11-15] MEDS: ALLOPURINOL 100 MG TAB PO SCH (11:43)
[2021-11-15] MEDS: LORATADINE 10 MG TAB PO SCH (11:43)
[2021-11-15] MEDS: PANTOPRAZOLE 40 MG TAB PO SCH (11:43)
[2021-11-15] MEDS: B-COMPLEX W/ C & FOLIC ACID(NEPHROVITE TAB) PO SCH ×2 (12:01→12:03)
[2021-11-15 13:00] VITALS: BP 115/45
[2021-11-15 17:00] VITALS: BP 104/53
[2021-11-15] MEDS: traZODone HCL 50 MG TAB PO SCH (21:32)
[2021-11-15] MEDS: MONTELUKAST SODIUM 10 MG TAB PO SCH (21:32)
[2021-11-15] MEDS: GABAPENTIN 300 MG CAP PO SCH (21:33)
[2021-11-15] MEDS: ATORVASTATIN 20 MG TAB PO SCH (21:33)
[2021-11-15 22:00] VITALS: BP 110/49
[2021-11-15] MEDS: FENOFIBRATE 160MG TAB PO SCH (22:00)
[2021-11-16] MEDS: ONDANSETRON HCL 4 MG/2 ML VIAL IV PRN ×5 (02:38→23:18)
[2021-11-16] MEDS: MORPHINE SULFATE INJ 2 MG/ml SYRG IV PRN ×5 (02:39→23:18)
[2021-11-16 05:04] VITALS: BP 116/46
[2021-11-16 06:00] LABS: Basophils # (auto) 0 10 ^3/uL (0-0.2); Basophils % (auto) 1.1 % (0.0-2.0); Eosinophils # (auto) 0.1 10 ^3/uL (0-0.8); Eosinophils % (auto) 2.6 % (0.0-7.0); Hematocrit 27.3 % (41.0-53.0); Lymphocytes # (auto) 0.8 10 ^3/uL (0.4-5.4); Lymphocytes % (auto) 19.8 % (10.0-50.0); Mean Corpuscular Hemoglobin 31.4 pg (28.0-32.0); Mean Corpuscular Hgb Conc. 32.8 g/dL (32.0-36.0); Mean Corpuscular Volume 95.6 fL (80.0-100.0); Monocytes # (auto) 0.5 10 ^3/uL (0-1.3); Monocytes % (auto) 13.2 % (0.0-12.0); Neutrophils # (auto) 2.5 10 ^3/uL (1.6-8.6); Neutrophils % (auto) 63.3 % (37.0-80.0); Nucleated Red Blood Cells % 0.2 %; Red Blood Cells 2.86 10^6/uL (4.5-5.90); Red Cell Distribution Width 19.6 % (11.8-14.3)
[2021-11-16 06:20] LABS: Albumin 2.5 g/dL (3.4-5.0); Calcium 8.8 mg/dL (8.5-10.1); Potassium 4.3 mmol/L (3.5-5.1)
[2021-11-16] MEDS: ACCU-CHEK COMFORT CURVE STRIP VI SCH ×4 (06:23→21:33)
[2021-11-16 06:27] LABS: BUN/Creatinine Ratio 4.2; Bilirubin, Total 0.9 mg/dL (0.2-1.0); Total Protein 5.6 g/dL (6.4-8.2)
[2021-11-16] MEDS: InsuLIN REG 1unit/0.01ml Soln (100units/ml) SC SCH ×4 (06:27→21:34)
[2021-11-16 08:00] VITALS: BP 137/59
[2021-11-16] MEDS: CALCIUM ACETATE 667 MG CAP PO SCH ×3 (08:31→17:36)
[2021-11-16] MEDS: SEVELAMER 800 MG TAB PO SCH ×3 (08:38→17:36)
[2021-11-16 09:00] VITALS: BP 102/42
[2021-11-16] MEDS: PARoxetine 20 MG TAB PO SCH (09:58)
[2021-11-16] MEDS: ENOXAPARIN SOD 120 MG/0.8 ML SYRINGE SC SCH (09:58)
[2021-11-16] MEDS: ALLOPURINOL 100 MG TAB PO SCH (09:59)
[2021-11-16] MEDS: PANTOPRAZOLE 40 MG TAB PO SCH (09:59)
[2021-11-16] MEDS: GABAPENTIN 300 MG CAP PO SCH (10:00)
[2021-11-16] MEDS: ASPirin 81 mg TAB PO SCH (10:00)
[2021-11-16] MEDS: LORATADINE 10 MG TAB PO SCH (10:00)
[2021-11-16] MEDS: TICAGRELOR 90 MG TAB PO SCH ×2 (10:00→21:33)
[2021-11-16 12:59] VITALS: BP 113/38
[2021-11-16] MEDS: COLCHICINE 0.6 MG CAP PO SCH (13:45)
[2021-11-16 16:30] VITALS: BP 105/42
[2021-11-16] MEDS: traZODone HCL 50 MG TAB PO SCH (21:33)
[2021-11-16] MEDS: MONTELUKAST SODIUM 10 MG TAB PO SCH (21:33)
[2021-11-16] MEDS: ATORVASTATIN 20 MG TAB PO SCH (21:33)
[2021-11-16] MEDS: FENOFIBRATE 160MG TAB PO SCH (21:34)
[2021-11-16 22:00] VITALS: BP 117/40
[2021-11-17] MEDS: ONDANSETRON HCL 4 MG/2 ML VIAL IV PRN ×5 (03:21→20:56)
[2021-11-17] MEDS: MORPHINE SULFATE INJ 2 MG/ml SYRG IV PRN ×5 (03:21→20:57)
[2021-11-17 04:08] LABS: Basophils # (auto) 0 10 ^3/uL (0-0.2); Basophils % (auto) 0.9 % (0.0-2.0); Eosinophils # (auto) 0.1 10 ^3/uL (0-0.8); Eosinophils % (auto) 3.7 % (0.0-7.0); Hematocrit 28.5 % (41.0-53.0); Hemoglobin 9.1 g/dL (13.5-17.5); Lymphocytes # (auto) 0.9 10 ^3/uL (0.4-5.4); Lymphocytes % (auto) 24.3 % (10.0-50.0); Mean Corpuscular Hemoglobin 29.6 pg (28.0-32.0); Mean Corpuscular Hgb Conc. 31.7 g/dL (32.0-36.0); Mean Corpuscular Volume 93.4 fL (80.0-100.0); Monocytes # (auto) 0.6 10 ^3/uL (0-1.3); Monocytes % (auto) 15.4 % (0.0-12.0); Neutrophils # (auto) 2.1 10 ^3/uL (1.6-8.6); Neutrophils % (auto) 55.7 % (37.0-80.0); Nucleated Red Blood Cells % 0.2 %; Red Blood Cells 3.05 10^6/uL (4.5-5.90); White Blood Cell 3.8 10^3/uL (4.4-10.8)
[2021-11-17 04:12] LABS: Red Cell Distribution Width 20.4 % (11.8-14.3)
[2021-11-17 04:22] LABS: Albumin 2.6 g/dL (3.4-5.0); Calcium 8.4 mg/dL (8.5-10.1); Potassium 4.6 mmol/L (3.5-5.1)
[2021-11-17 04:25] LABS: BUN/Creatinine Ratio 4.5; Bilirubin, Total 0.8 mg/dL (0.2-1.0); Total Protein 5.7 g/dL (6.4-8.2)
[2021-11-17 05:00] VITALS: BP 113/51
[2021-11-17] MEDS: ACCU-CHEK COMFORT CURVE STRIP VI SCH ×4 (06:45→21:40)
[2021-11-17] MEDS: InsuLIN REG 1unit/0.01ml Soln (100units/ml) SC SCH ×4 (06:47→21:53)
[2021-11-17] MEDS ORDERED: SODIUM CHL 0.9% 1000 ML BAG XX ONE (07:00)
[2021-11-17] MEDS: SEVELAMER 800 MG TAB PO SCH ×3 (07:35→18:40)
[2021-11-17] MEDS: CALCIUM ACETATE 667 MG CAP PO SCH ×3 (07:35→18:41)
[2021-11-17 08:00] VITALS: BP 137/59
[2021-11-17 09:00] VITALS: BP 127/53
[2021-11-17] MEDS: ALBUMIN 25% 100 ML IV SCH ×2 (09:28→10:51)
[2021-11-17] MEDS ORDERED: COLCHICINE 0.6 MG CAP PO SCH (10:00)
[2021-11-17] MEDS ORDERED: TICA90TA PO (11:22)
[2021-11-17] MEDS ORDERED: COLC0.6T56 PO (11:22)
[2021-11-17] MEDS: GABAPENTIN 300 MG CAP PO SCH (11:48)
[2021-11-17] MEDS: LORATADINE 10 MG TAB PO SCH (11:48)
[2021-11-17] MEDS: ASPirin 81 mg TAB PO SCH (11:48)
[2021-11-17] MEDS: PANTOPRAZOLE 40 MG TAB PO SCH (11:49)
[2021-11-17] MEDS: B-COMPLEX W/ C & FOLIC ACID(NEPHROVITE TAB) PO SCH (11:49)
[2021-11-17] MEDS: COLCHICINE 0.6 MG CAP PO SCH (11:49)
[2021-11-17] MEDS: ENOXAPARIN SOD 120 MG/0.8 ML SYRINGE SC SCH (11:50)
[2021-11-17] MEDS: PARoxetine 20 MG TAB PO SCH (11:50)
[2021-11-17] MEDS: ALLOPURINOL 100 MG TAB PO SCH (11:54)
[2021-11-17] MEDS: TICAGRELOR 90 MG TAB PO SCH ×2 (12:03→21:40)
[2021-11-17 13:00] VITALS: BP_SYST 131; BP_SYST 133; BP_DIAS 48; BP_DIAS 52
[2021-11-17 17:00] VITALS: BP 133/54
[2021-11-17] MEDS ORDERED: EPOETIN ALFA-EPBX 4,000 UNIT/ML VIAL SC ONE (21:00)
[2021-11-17] MEDS: traZODone HCL 50 MG TAB PO SCH (21:39)
[2021-11-17] MEDS: ATORVASTATIN 20 MG TAB PO SCH (21:40)
[2021-11-17] MEDS: FENOFIBRATE 160MG TAB PO SCH (21:40)
[2021-11-17] MEDS: MONTELUKAST SODIUM 10 MG TAB PO SCH (21:40)
[2021-11-17 22:00] VITALS: BP 136/61
[2021-11-18] MEDS: ONDANSETRON HCL 4 MG/2 ML VIAL IV PRN ×3 (04:21→15:21)
[2021-11-18] MEDS: MORPHINE SULFATE INJ 2 MG/ml SYRG IV PRN ×3 (04:22→15:28)
[2021-11-18 05:00] VITALS: BP 123/52
[2021-11-18 06:20] LABS: Albumin 2.9 g/dL (3.4-5.0); Calcium 8.7 mg/dL (8.5-10.1); Potassium 4.8 mmol/L (3.5-5.1)
[2021-11-18 06:23] LABS: Hemoglobin 9.1 g/dL (13.5-17.5); Mean Corpuscular Hemoglobin 30.6 pg (28.0-32.0); Mean Corpuscular Hgb Conc. 32.3 g/dL (32.0-36.0); Mean Corpuscular Volume 94.5 fL (80.0-100.0); Red Blood Cells 2.96 10^6/uL (4.5-5.90); Red Cell Distribution Width 20.8 % (11.8-14.3); White Blood Cell 3.9 10^3/uL (4.4-10.8)
[2021-11-18 06:25] LABS: BUN/Creatinine Ratio 4.3; Bilirubin, Total 0.9 mg/dL (0.2-1.0); Total Protein 5.8 g/dL (6.4-8.2)
[2021-11-18] MEDS: ACCU-CHEK COMFORT CURVE STRIP VI SCH ×3 (06:32→17:00)
[2021-11-18] MEDS: InsuLIN REG 1unit/0.01ml Soln (100units/ml) SC SCH ×3 (06:32→17:00)
[2021-11-18 06:34] LABS: Basophils % (manual) 0 (0.0-2.0); Blast Cells 0; Metamyelocytes % 0; Myelocytes % 0; Promyelocytes % 0; Reactive Lymphocytes 0
[2021-11-18 06:58] LABS: Band Neutrophils % (manual) 2; Eosinophils % (manual) 3 (0-7); Lymphocytes % (manual) 15 (10.0-50.0); Monocytes % (manual) 5 (0-12)
[2021-11-18 09:00] VITALS: BP 125/66
[2021-11-18] MEDS: CALCIUM ACETATE 667 MG CAP PO SCH ×3 (09:21→18:00)
[2021-11-18] MEDS: SEVELAMER 800 MG TAB PO SCH ×3 (09:21→18:00)
[2021-11-18] MEDS: B-COMPLEX W/ C & FOLIC ACID(NEPHROVITE TAB) PO SCH (09:50)
[2021-11-18] MEDS: LORATADINE 10 MG TAB PO SCH (09:50)
[2021-11-18] MEDS: ENOXAPARIN SOD 120 MG/0.8 ML SYRINGE SC SCH (09:50)
[2021-11-18] MEDS: PANTOPRAZOLE 40 MG TAB PO SCH (09:50)
[2021-11-18] MEDS: ASPirin 81 mg TAB PO SCH (09:50)
[2021-11-18] MEDS: TICAGRELOR 90 MG TAB PO SCH (09:50)
[2021-11-18] MEDS: GABAPENTIN 300 MG CAP PO SCH (09:50)
[2021-11-18] MEDS: COLCHICINE 0.6 MG CAP PO SCH (09:50)
[2021-11-18] MEDS: PARoxetine 20 MG TAB PO SCH (10:00)
[2021-11-18] MEDS: ALLOPURINOL 100 MG TAB PO SCH (10:02)
[2021-11-18 13:00] VITALS: BP 130/59
[2021-11-18] MEDS ORDERED: SIMETHICONE 80 MG CHEWABLE TABLET PO ONE (15:15)
[2021-11-18 17:00] VITALS: BP 105/48
== END 2021-11-18 20:50 | disposition home health service (06) | DRG 280 ==
LOC: TELE-WESTW 16:30
PROVIDERS: ADMIT Internal Medicine; ATTEND Internal Medicine
PROC: 5A1D70Z Performance of Urinary Filtration, Intermittent, Less than 6 Hours Per Day (ICD-10-PCS; 2021-11-15)
PROC: 5A1D70Z Performance of Urinary Filtration, Intermittent, Less than 6 Hours Per Day (ICD-10-PCS; principal; 2021-11-17)
DX: I13.2 Hypertensive heart and chronic kidney disease with heart failure and with stage 5 chronic kidney disease, or end stage renal disease (principal); I50.33 Acute on chronic diastolic (congestive) heart failure; I21.A1 Myocardial infarction type 2; N18.6 End stage renal disease; I32 Pericarditis in diseases classified elsewhere; I25.10 Atherosclerotic heart disease of native coronary artery without angina pectoris; E11.22 Type 2 diabetes mellitus with diabetic chronic kidney disease; K21.9 Gastro-esophageal reflux disease without esophagitis; E78.5 Hyperlipidemia, unspecified; E66.01 Morbid (severe) obesity due to excess calories; E83.39 Other disorders of phosphorus metabolism; E11.65 Type 2 diabetes mellitus with hyperglycemia; I49.3 Ventricular premature depolarization; Z79.4 Long term (current) use of insulin; Z82.49 Family history of ischemic heart disease and other diseases of the circulatory system; Z83.3 Family history of diabetes mellitus; Z86.718 Personal history of other venous thrombosis and embolism; Z95.5 Presence of coronary angioplasty implant and graft; Z99.2 Dependence on renal dialysis; F32.A Depression, unspecified; Z88.1 Allergy status to other antibiotic agents; Z68.38 Body mass index [BMI] 38.0-38.9, adult; Z88.0 Allergy status to penicillin; Z20.822 Contact with and (suspected) exposure to COVID-19
CPT/HCPCS: 36415; 71045; 78452; 80053; 80061; 82962; 83735; 83880; 84443; 84484; 85007; 85025; 85027; 85610; 85730; 90935; 93017; 93971; G0378; J0153; J1815; J2405; P9047

== ENCOUNTER 2021-11-20 11:08 | Inpatient (IN) | payer MEDICARE, MEDICAID ==
[~2021-11-20] VITALS: Ht 182.9 cm; Wt 112.0 kg
[~2021-11-20 11:08] MED LIST changes: -APIX5TAB PO; -CLOP75TA28 PO; +COLC0.6T56 PO; -LOVA20TA4 PO
[2021-11-20] MEDS ORDERED: SODIUM CHLORIDE 0.9% 500 ML IV ONE (11:45)
[2021-11-20 12:27] LABS: Basophils # (auto) 0.1 10 ^3/uL (0-0.2); Basophils % (auto) 1.1 % (0.0-2.0); Eosinophils # (auto) 0.1 10 ^3/uL (0-0.8); Eosinophils % (auto) 2.8 % (0.0-7.0); Lymphocytes # (auto) 0.7 10 ^3/uL (0.4-5.4); Lymphocytes % (auto) 15.7 % (10.0-50.0); Mean Corpuscular Hemoglobin 29.6 pg (28.0-32.0); Mean Corpuscular Hgb Conc. 31.1 g/dL (32.0-36.0); Mean Corpuscular Volume 95.1 fL (80.0-100.0); Monocytes # (auto) 0.4 10 ^3/uL (0-1.3); Monocytes % (auto) 9.6 % (0.0-12.0); Neutrophils # (auto) 3.2 10 ^3/uL (1.6-8.6); Neutrophils % (auto) 70.8 % (37.0-80.0); Nucleated Red Blood Cells % 0.1 %; Red Blood Cells 3.36 10^6/uL (4.5-5.90); White Blood Cell 4.5 10^3/uL (4.4-10.8)
[2021-11-20 12:35] LABS: INR 1.08 (0.9-1.15)
[2021-11-20 12:39] LABS: Red Cell Distribution Width 20.3 % (11.8-14.3)
[2021-11-20 12:50] LABS: Calcium 8.9 mg/dL (8.5-10.1)
[2021-11-20 12:53] LABS: BUN/Creatinine Ratio 4.5; Bilirubin, Total 0.9 mg/dL (0.2-1.0); Total Protein 6.5 g/dL (6.4-8.2)
[2021-11-20 13:10] LABS: Potassium 5.6 mmol/L (3.5-5.1)
[2021-11-20] MEDS ORDERED: SODIUM ZIRCONIUM CYCL 10 GM PAK PO ONE (14:45)
[2021-11-20] MEDS ORDERED: SODIUM BICARBONATE 8.4% INJ 50ML SYRINGE IV ONE (14:45)
[2021-11-20] MEDS: FUROSEMIDE 20 MG/2 ML VIAL IV ONE ×2 (14:45→15:10)
[2021-11-20] MEDS ORDERED: DEXTROSE (50%) 50ML SYRG IV ONE (14:45)
[2021-11-20] MEDS ORDERED: HYDROcodone-ACET 5/325MG TAB PO ONE (14:45)
[2021-11-20] MEDS ORDERED: CALCIUM GLUC 1,000mg/50ml-NS 50 ML IV ONE (14:45)
[2021-11-20] MEDS ORDERED: InsuLIN REG 1unit/0.01ml Soln (100units/ml) IV ONE (14:45)
[2021-11-20] MEDS ORDERED: ENOXAPARIN SOD 120 MG/0.8 ML SYRINGE SC ONE (14:45)
[2021-11-20] MEDS ORDERED: ALBUTEROL SULF 2.5 MG/0.5ML(0.5%) NEB SOLN NEB ONE (14:45)
[2021-11-20] MEDS ORDERED: ONDANSETRON HCL 4 MG/2 ML VIAL IV PRN (15:30)
[2021-11-20] MEDS ORDERED: ACETAMINOPHEN 325 MG TAB PO PRN (15:30)
[2021-11-20] MEDS ORDERED: DOCUSATE SOD 100 MG CAP PO PRN (15:30)
[2021-11-20] MEDS ORDERED: MIDODRINE HCL 10 MG TAB PO ONE (17:15)
[2021-11-20] MEDS: HYDROcodone-ACET 5/325MG TAB PO PRN (20:43)
[2021-11-20] MEDS ORDERED: ALBUMIN 5% 250 ML IV ONE (21:30)
[2021-11-21] VITALS (10 sets, daily range): BP systolic 105–157; BP diastolic 22–59
[2021-11-21] MEDS: HYDROcodone-ACET 5/325MG TAB PO PRN ×2 (04:05→19:51)
[2021-11-21] MEDS ORDERED: HYDR-4798 PO (04:59)
[2021-11-21] MEDS ORDERED: AMIO200T4 PO (05:03)
[2021-11-21] MEDS ORDERED: FLUT50SP NAS (05:03)
[2021-11-21] MEDS ORDERED: MIDODRINE HCL 10 MG TAB PO STA (07:01)
[2021-11-21] MEDS ORDERED: SODIUM CHL 0.9% 1000 ML BAG XX ONE (07:15)
[2021-11-21] MEDS: ALBUMIN 25% 100 ML IV PRN ×2 (07:45→09:11)
[2021-11-21 08:07] LABS: Basophils # (auto) 0.1 10 ^3/uL (0-0.2); Basophils % (auto) 2.4 % (0.0-2.0); Eosinophils # (auto) 0.1 10 ^3/uL (0-0.8); Eosinophils % (auto) 4.1 % (0.0-7.0); Hematocrit 23.6 % (41.0-53.0); Hemoglobin 7.7 g/dL (13.5-17.5); Lymphocytes # (auto) 0.6 10 ^3/uL (0.4-5.4); Lymphocytes % (auto) 23.2 % (10.0-50.0); Mean Corpuscular Hemoglobin 30.5 pg (28.0-32.0); Mean Corpuscular Hgb Conc. 32.4 g/dL (32.0-36.0); Mean Corpuscular Volume 94.1 fL (80.0-100.0); Monocytes # (auto) 0.2 10 ^3/uL (0-1.3); Monocytes % (auto) 7.9 % (0.0-12.0); Neutrophils # (auto) 1.6 10 ^3/uL (1.6-8.6); Neutrophils % (auto) 62.4 % (37.0-80.0); Nucleated Red Blood Cells % 0.1 %; Red Blood Cells 2.51 10^6/uL (4.5-5.90); Red Cell Distribution Width 19.8 % (11.8-14.3); White Blood Cell 2.6 10^3/uL (4.4-10.8)
[2021-11-21 08:34] LABS: Calcium 7.9 mg/dL (8.5-10.1); Potassium 4.4 mmol/L (3.5-5.1)
[2021-11-21 08:38] LABS: BUN/Creatinine Ratio 4.9; Bilirubin, Total 0.7 mg/dL (0.2-1.0); Total Protein 5.7 g/dL (6.4-8.2)
[2021-11-21] MEDS: MORPHINE SULFATE INJ 2 MG/ml SYRG IV PRN ×2 (08:57→20:46)
[2021-11-21] MEDS ORDERED: ENOXAPARIN SOD 30 MG/0.3 ML SYRINGE SC SCH (10:00)
[2021-11-21] MEDS ORDERED: INSU100I2 SC (12:18)
[2021-11-21] MEDS ORDERED: DEXTROSE (50%) 50ML SYRG IV PRN (13:30)
[2021-11-21] MEDS: ACCU-CHEK COMFORT CURVE STRIP VI SCH ×2 (17:14→23:40)
[2021-11-21] MEDS: InsuLIN REG 1unit/0.01ml Soln (100units/ml) SC SCH ×2 (17:14→23:44)
[2021-11-21] MEDS ORDERED: ASPirin 81 mg TAB PO ONE (19:30)
[2021-11-21] MEDS: METOPROLOL TARTRATE 25 MG TAB PO SCH (21:57)
[2021-11-21] MEDS: MUPIROCIN 2% OINT 15gm or 22gm FOR MRSA NARES EACHNOSTRI SCH (21:58)
[2021-11-21] MEDS ORDERED: traZODone HCL 50 MG TAB PO SCH (22:00)
[2021-11-21] MEDS: TICAGRELOR 90 MG TAB PO SCH (22:38)
[2021-11-22 05:00] VITALS: BP 155/58
[2021-11-22] MEDS: ACCU-CHEK COMFORT CURVE STRIP VI SCH ×3 (05:43→17:24)
[2021-11-22] MEDS: InsuLIN REG 1unit/0.01ml Soln (100units/ml) SC SCH ×3 (05:46→18:00)
[2021-11-22 06:22] LABS: Basophils # (auto) 0 10 ^3/uL (0-0.2); Basophils % (auto) 1.3 % (0.0-2.0); Eosinophils # (auto) 0.2 10 ^3/uL (0-0.8); Eosinophils % (auto) 6.3 % (0.0-7.0); Hematocrit 27.5 % (41.0-53.0); Lymphocytes # (auto) 0.8 10 ^3/uL (0.4-5.4); Lymphocytes % (auto) 28.2 % (10.0-50.0); Mean Corpuscular Hemoglobin 30.9 pg (28.0-32.0); Mean Corpuscular Hgb Conc. 32.7 g/dL (32.0-36.0); Mean Corpuscular Volume 94.7 fL (80.0-100.0); Monocytes # (auto) 0.4 10 ^3/uL (0-1.3); Monocytes % (auto) 15.9 % (0.0-12.0); Neutrophils # (auto) 1.4 10 ^3/uL (1.6-8.6); Neutrophils % (auto) 48.3 % (37.0-80.0); Nucleated Red Blood Cells % 0.1 %; Red Cell Distribution Width 19.2 % (11.8-14.3); White Blood Cell 2.8 10^3/uL (4.4-10.8)
[2021-11-22 06:38] LABS: BUN/Creatinine Ratio 3.8; Calcium 8.2 mg/dL (8.5-10.1); Potassium 4.2 mmol/L (3.5-5.1)
[2021-11-22 09:00] VITALS: BP 147/60
[2021-11-22] MEDS: MORPHINE SULFATE INJ 2 MG/ml SYRG IV PRN ×2 (09:28→14:18)
[2021-11-22] MEDS: TICAGRELOR 90 MG TAB PO SCH (09:28)
[2021-11-22] MEDS: METOPROLOL TARTRATE 25 MG TAB PO SCH (09:30)
[2021-11-22] MEDS: MUPIROCIN 2% OINT 15gm or 22gm FOR MRSA NARES EACHNOSTRI SCH (09:31)
[2021-11-22] MEDS ORDERED: ASPirin 81 mg TAB PO SCH (10:00)
[2021-11-22] MEDS ORDERED: MUPI2OIN2 EACHNOSTRI (12:14)
[2021-11-22 14:00] VITALS: BP 135/59
[2021-11-22 15:05] VITALS: BP 135/59
[2021-11-22 17:00] VITALS: BP 117/60
[2021-11-22] MEDS: HYDROcodone-ACET 5/325MG TAB PO PRN ×2 (17:24→21:29)
[2021-11-22 21:38] VITALS: BP 131/52
[2021-11-22] MEDS ORDERED: buPROPion HCL 75 MG TAB PO SCH (22:00)
== END 2021-11-22 22:35 | disposition home health service (06) | DRG 559 ==
LOC: ER 11:08 → EDBD 11:08 → OVERFLOW 15:25 → WEST WING 11-21 02:45
PROVIDERS: ADMIT Internal Medicine; ATTEND Internal Medicine Nephrology
PROC: 5A1D70Z Performance of Urinary Filtration, Intermittent, Less than 6 Hours Per Day (ICD-10-PCS; principal; 2021-11-21)
PROC: 30233N1 Transfusion of Nonautologous Red Blood Cells into Peripheral Vein, Percutaneous Approach (ICD-10-PCS; 2021-11-21)
DX: T84.83XA Hemorrhage due to internal orthopedic prosthetic devices, implants and grafts, initial encounter (principal); I21.4 Non-ST elevation (NSTEMI) myocardial infarction; I50.43 Acute on chronic combined systolic (congestive) and diastolic (congestive) heart failure; N18.6 End stage renal disease; I13.2 Hypertensive heart and chronic kidney disease with heart failure and with stage 5 chronic kidney disease, or end stage renal disease; D62 Acute posthemorrhagic anemia; E87.5 Hyperkalemia; E11.22 Type 2 diabetes mellitus with diabetic chronic kidney disease; E66.9 Obesity, unspecified; I50.9 Heart failure, unspecified; G62.9 Polyneuropathy, unspecified; Z96.641 Presence of right artificial hip joint; J45.909 Unspecified asthma, uncomplicated; M89.9 Disorder of bone, unspecified; Z20.822 Contact with and (suspected) exposure to COVID-19; A49.02 Methicillin resistant Staphylococcus aureus infection, unspecified site; Y83.8 Other surgical procedures as the cause of abnormal reaction of the patient, or of later complication, without mention of misadventure at the time of the procedure; I25.10 Atherosclerotic heart disease of native coronary artery without angina pectoris; Z79.02 Long term (current) use of antithrombotics/antiplatelets; Z79.4 Long term (current) use of insulin; Z95.5 Presence of coronary angioplasty implant and graft; Z68.33 Body mass index [BMI] 33.0-33.9, adult; Z79.899 Other long term (current) drug therapy; Z82.49 Family history of ischemic heart disease and other diseases of the circulatory system; Z83.3 Family history of diabetes mellitus; Z91.81 History of falling; Z99.2 Dependence on renal dialysis; Z88.0 Allergy status to penicillin; Z88.1 Allergy status to other antibiotic agents; Y92.89 Other specified places as the place of occurrence of the external cause; D63.1 Anemia in chronic kidney disease
CPT/HCPCS: 36415; 71045; 72192; 73502; 73590; 80048; 80053; 82962; 83880; 84132; 84484; 85025; 85610; 85730; 86850; 86900; 86901; 86920; 87081; 90935; 93005; 94644; 96361; 96365; 96375; G0378; J1815; P9047

== ENCOUNTER 2021-12-11 00:57 | Emergency (ER) | payer MEDICARE, MEDICAID ==
[~2021-12-11] VITALS: Ht 177.8 cm; Wt 250.0 kg
[~2021-12-11 00:57] MED LIST changes: +AMIO200T4 PO; +FLUT50SP NAS; +INSU100I2 SC; +MUPI2OIN2 EACHNOSTRI
[2021-12-11] MEDS ORDERED: SODIUM CHLORIDE 0.9% 1,000 ML IV ONE (02:30)
[2021-12-11 02:56] LABS: Basophils # (auto) 0 10 ^3/uL (0-0.2); Basophils % (auto) 0.7 % (0.0-2.0); Eosinophils # (auto) 0.2 10 ^3/uL (0-0.8); Eosinophils % (auto) 3.6 % (0.0-7.0); Hematocrit 29.2 % (41.0-53.0); Hemoglobin 9.2 g/dL (13.5-17.5); Lymphocytes # (auto) 0.9 10 ^3/uL (0.4-5.4); Mean Corpuscular Hgb Conc. 31.6 g/dL (32.0-36.0); Mean Corpuscular Volume 95.1 fL (80.0-100.0); Monocytes # (auto) 0.5 10 ^3/uL (0-1.3); Monocytes % (auto) 8.8 % (0.0-12.0); Neutrophils # (auto) 4.3 10 ^3/uL (1.6-8.6); Neutrophils % (auto) 71.9 % (37.0-80.0); Red Blood Cells 3.08 10^6/uL (4.5-5.90); Red Cell Distribution Width 17.7 % (11.8-14.3)
[2021-12-11 03:18] LABS: Albumin 2.5 g/dL (3.4-5.0); Calcium 8.3 mg/dL (8.5-10.1)
[2021-12-11 03:21] LABS: BUN/Creatinine Ratio 4.9; Bilirubin, Total 0.6 mg/dL (0.2-1.0)
[2021-12-11] MEDS ORDERED: HYDROmorphone HCL 2 MG/ML VL/or syr IV ONE (03:45)
[2021-12-11 04:18] VITALS: BP 100/31
== END 2021-12-11 06:00 | disposition home or self-care (01) ==
LOC: EDBD 00:57 → ER 00:59
DX: M25.551 Pain in right hip (principal); M79.18 Myalgia, other site; E44.0 Moderate protein-calorie malnutrition; R94.31 Abnormal electrocardiogram [ECG] [EKG]; I13.2 Hypertensive heart and chronic kidney disease with heart failure and with stage 5 chronic kidney disease, or end stage renal disease; N18.6 End stage renal disease; I50.9 Heart failure, unspecified; J45.909 Unspecified asthma, uncomplicated; Z68.45 Body mass index [BMI] 70 or greater, adult; Z88.0 Allergy status to penicillin; Z88.1 Allergy status to other antibiotic agents
CPT/HCPCS: 36415; 71045; 72192; 73501; 80053; 84484; 85025; 93005; 96361; 96374; 99285; J1170; J7030

== ENCOUNTER 2022-04-21 19:01 | Inpatient (IN) | payer MEDICARE, MEDICAID ==
[~2022-04-21] VITALS: Ht 177.8 cm; Wt 118.0 kg
[2022-04-21 20:21] LABS: Basophils # (auto) 0 10 ^3/uL (0-0.2); Basophils % (auto) 0.6 % (0.0-2.0); Eosinophils # (auto) 0.1 10 ^3/uL (0-0.8); Eosinophils % (auto) 2.2 % (0.0-7.0); Hematocrit 31.5 % (41.0-53.0); Hemoglobin 10.2 g/dL (13.5-17.5); Lymphocytes # (auto) 0.6 10 ^3/uL (0.4-5.4); Mean Corpuscular Hemoglobin 32.5 pg (28.0-32.0); Mean Corpuscular Hgb Conc. 32.3 g/dL (32.0-36.0); Mean Corpuscular Volume 100.4 fL (80.0-100.0); Monocytes # (auto) 0.4 10 ^3/uL (0-1.3); Monocytes % (auto) 12.6 % (0.0-12.0); Neutrophils # (auto) 2.4 10 ^3/uL (1.6-8.6); Neutrophils % (auto) 68.6 % (37.0-80.0); Nucleated Red Blood Cells % 0.2 %; Red Blood Cells 3.14 10^6/uL (4.5-5.90); Red Cell Distribution Width 15.8 % (11.8-14.3); White Blood Cell 3.4 10^3/uL (4.4-10.8)
[2022-04-21 20:33] LABS: INR 1.18 (0.9-1.15); Partial Thromboplastin Time 38.3 sec (24.6-33.4)
[2022-04-21 20:46] LABS: Albumin 2.7 g/dL (3.4-5.0); Calcium 8.3 mg/dL (8.5-10.1); Magnesium 2.4 mg/dL (1.6-2.6); Potassium 5.3 mmol/L (3.5-5.1)
[2022-04-21 20:48] LABS: BUN/Creatinine Ratio 6.8
[2022-04-21 20:51] LABS: Bilirubin, Total 0.6 mg/dL (0.2-1.0); Total Protein 6.7 g/dL (6.4-8.2)
[2022-04-21] MEDS ORDERED: MORPHINE SULFATE INJ 2 MG/ml SYRG IV PRN (22:45)
[2022-04-21] MEDS ORDERED: ALPRAZolam 0.5 MG TAB PO PRN (22:45)
[2022-04-21] MEDS ORDERED: ACETAMINOPHEN 325 MG TAB PO PRN (22:45)
[2022-04-21] MEDS ORDERED: ALBUTEROL SULF 2.5 MG/0.5ML(0.5%) NEB SOLN NEB PRN (22:45)
[2022-04-21] MEDS ORDERED: ONDANSETRON HCL 4 MG/2 ML VIAL IV PRN (22:45)
[2022-04-21] MEDS ORDERED: HYDROcodone-ACET 5/325MG TAB PO PRN (22:45)
[2022-04-21] MEDS ORDERED: NITROGLYCERIN 0.4 MG SL TAB SL PRN (22:45)
[2022-04-21] MEDS ORDERED: DOCUSATE SOD 100 MG CAP PO PRN (22:45)
[2022-04-21 23:08] LABS: Basophils # (auto) 0 10 ^3/uL (0-0.2); Basophils % (auto) 0.8 % (0.0-2.0); Eosinophils # (auto) 0.2 10 ^3/uL (0-0.8); Eosinophils % (auto) 4.5 % (0.0-7.0); Hematocrit 31.9 % (41.0-53.0); Hemoglobin 10.1 g/dL (13.5-17.5); Lymphocytes # (auto) 0.6 10 ^3/uL (0.4-5.4); Lymphocytes % (auto) 16.9 % (10.0-50.0); Mean Corpuscular Hgb Conc. 31.8 g/dL (32.0-36.0); Mean Corpuscular Volume 100.6 fL (80.0-100.0); Monocytes # (auto) 0.5 10 ^3/uL (0-1.3); Monocytes % (auto) 13.9 % (0.0-12.0); Neutrophils # (auto) 2.3 10 ^3/uL (1.6-8.6); Neutrophils % (auto) 63.9 % (37.0-80.0); Red Blood Cells 3.17 10^6/uL (4.5-5.90); Red Cell Distribution Width 16.2 % (11.8-14.3); White Blood Cell 3.5 10^3/uL (4.4-10.8)
[2022-04-21 23:17] VITALS: BP 133/79
[2022-04-21 23:22] LABS: BUN/Creatinine Ratio 6.7; Calcium 8.3 mg/dL (8.5-10.1); Potassium 5.3 mmol/L (3.5-5.1)
[2022-04-22] MEDS ORDERED: ACETAMINOPHEN 325 MG TAB PO PRN (00:15)
[2022-04-22] MEDS: InsuLIN REG 1unit/0.01ml Soln (100units/ml) SC SCH ×4 (06:43→22:00)
[2022-04-22] MEDS ORDERED: SODIUM CHL 0.9% 1000 ML BAG XX ONE (07:15)
[2022-04-22] MEDS ORDERED: OMEPRAZOLE 20MG/10ML ORAL SUSP PO SCH (08:00)
[2022-04-22] MEDS: ASPirin-EC 81 mg tab PO SCH (08:39)
[2022-04-22] MEDS: PARoxetine 20 MG TAB PO SCH (08:41)
[2022-04-22] MEDS: AMIODARONE HCL 200 MG TAB PO SCH (08:42)
[2022-04-22] MEDS: METOPROLOL TARTRATE 25 MG TAB PO SCH ×2 (08:42→22:19)
[2022-04-22] MEDS: LORATADINE 10 MG TAB PO SCH (08:43)
[2022-04-22] MEDS: PANTOPRAZOLE 40 MG TAB PO SCH (08:43)
[2022-04-22] MEDS: ALLOPURINOL 100 MG TAB PO SCH (08:44)
[2022-04-22] MEDS: BUMETANIDE 1 MG TAB PO SCH ×2 (08:48→22:00)
[2022-04-22] MEDS: ACCU-CHEK COMFORT CURVE STRIP VI SCH ×4 (08:48→22:14)
[2022-04-22] MEDS: TICAGRELOR 90 MG TAB PO SCH ×2 (08:52→22:19)
[2022-04-22] MEDS: HYDROcodone-ACET 10/325MG TAB PO PRN ×2 (09:41→22:19)
[2022-04-22] MEDS: DEXTROSE (50%) 50ML SYRG IV PRN ×2 (11:17→18:33)
[2022-04-22] MEDS ORDERED: ALBUMIN 25% 100 ML IV ONE ×2 (12:00)
[2022-04-22] MEDS ORDERED: MIDODRINE HCL 10 MG TAB PO ONE (12:00)
[2022-04-22] MEDS: MIDODRINE HCL 10 MG TAB PO SCH ×2 (14:16→17:47)
[2022-04-22] MEDS: SEVELAMER 800 MG TAB PO SCH ×2 (14:17→22:16)
[2022-04-22 22:00] VITALS: BP 111/24
[2022-04-22] MEDS: Fenofibrate 160 MG TABLETS PO SCH (22:00)
[2022-04-22] MEDS: traZODone HCL 50 MG TAB PO SCH (22:16)
[2022-04-22] MEDS: MONTELUKAST SODIUM 10 MG TAB PO SCH (22:16)
[2022-04-22] MEDS: ATORVASTATIN 20 MG TAB PO SCH (22:19)
[2022-04-22] MEDS: GABAPENTIN 300 MG CAP PO SCH (22:19)
[2022-04-22 22:24] VITALS: BP 111/34
[2022-04-22] MEDS ORDERED: PAR20T PO (22:29)
[2022-04-22] MEDS ORDERED: APIX5TAB PO (22:32)
[2022-04-22] MEDS ORDERED: PERCOT PO (22:38)
[2022-04-23 04:59] VITALS: BP 121/40
[2022-04-23] MEDS: SEVELAMER 800 MG TAB PO SCH ×3 (05:38→18:19)
[2022-04-23] MEDS: MIDODRINE HCL 10 MG TAB PO SCH ×3 (05:38→18:19)
[2022-04-23] MEDS: ACCU-CHEK COMFORT CURVE STRIP VI SCH ×4 (06:54→22:03)
[2022-04-23] MEDS: InsuLIN REG 1unit/0.01ml Soln (100units/ml) SC SCH ×4 (06:54→22:00)
[2022-04-23 06:55] LABS: Hematocrit 27.4 % (41.0-53.0); Hemoglobin 8.6 g/dL (13.5-17.5); Mean Corpuscular Hemoglobin 31.8 pg (28.0-32.0); Mean Corpuscular Hgb Conc. 31.5 g/dL (32.0-36.0); Mean Corpuscular Volume 100.8 fL (80.0-100.0); Red Blood Cells 2.72 10^6/uL (4.5-5.90); White Blood Cell 4.3 10^3/uL (4.4-10.8)
[2022-04-23 07:03] LABS: Calcium 8.1 mg/dL (8.5-10.1); Potassium 4.3 mmol/L (3.5-5.1)
[2022-04-23 07:05] LABS: BUN/Creatinine Ratio 6.3
[2022-04-23 07:30] VITALS: BP 123/45
[2022-04-23 07:30] LABS: Basophils % (manual) 0 (0.0-2.0); Blast Cells 0; Myelocytes % 0; Promyelocytes % 0; Reactive Lymphocytes 0
[2022-04-23 08:04] LABS: Band Neutrophils % (manual) 20; Eosinophils % (manual) 8 (0-7); Lymphocytes % (manual) 14 (10.0-50.0); Metamyelocytes % 1; Monocytes % (manual) 15 (0-12)
[2022-04-23] MEDS: PANTOPRAZOLE 40 MG TAB PO SCH (08:57)
[2022-04-23] MEDS: PARoxetine 20 MG TAB PO SCH (08:57)
[2022-04-23] MEDS: TICAGRELOR 90 MG TAB PO SCH ×2 (08:57→22:00)
[2022-04-23] MEDS: ASPirin-EC 81 mg tab PO SCH (08:57)
[2022-04-23] MEDS: AMIODARONE HCL 200 MG TAB PO SCH (08:57)
[2022-04-23] MEDS: LORATADINE 10 MG TAB PO SCH (08:58)
[2022-04-23] MEDS: BUMETANIDE 1 MG TAB PO SCH ×2 (08:58→22:00)
[2022-04-23] MEDS: ALLOPURINOL 100 MG TAB PO SCH (08:58)
[2022-04-23] MEDS: METOPROLOL TARTRATE 25 MG TAB PO SCH ×2 (08:58→22:03)
[2022-04-23 09:00] VITALS: BP 123/45
[2022-04-23] MEDS: HYDROcodone-ACET 10/325MG TAB PO PRN ×2 (09:00→22:19)
[2022-04-23 13:00] VITALS: BP 119/72
[2022-04-23] MEDS ORDERED: ALBUTEROL MEDNEB 2.5 mg/3ml NEB ONE (14:41)
[2022-04-23 17:00] VITALS: BP 126/48
[2022-04-23] MEDS: CALCIUM ACETATE 667 MG CAP PO SCH (18:19)
[2022-04-23 22:00] VITALS: BP 151/50
[2022-04-23] MEDS: traZODone HCL 50 MG TAB PO SCH (22:00)
[2022-04-23] MEDS: Fenofibrate 160 MG TABLETS PO SCH (22:00)
[2022-04-23] MEDS: MONTELUKAST SODIUM 10 MG TAB PO SCH (22:00)
[2022-04-23] MEDS: GABAPENTIN 300 MG CAP PO SCH (22:01)
[2022-04-23] MEDS: ATORVASTATIN 20 MG TAB PO SCH (22:01)
[2022-04-24 05:00] VITALS: BP 141/39
[2022-04-24] MEDS: MIDODRINE HCL 10 MG TAB PO SCH ×3 (05:52→18:05)
[2022-04-24 06:22] LABS: Hematocrit 27.6 % (41.0-53.0); Hemoglobin 8.7 g/dL (13.5-17.5)
[2022-04-24] MEDS: InsuLIN REG 1unit/0.01ml Soln (100units/ml) SC SCH ×4 (06:35→21:24)
[2022-04-24] MEDS: ACCU-CHEK COMFORT CURVE STRIP VI SCH ×4 (06:35→21:24)
[2022-04-24] MEDS: SEVELAMER 800 MG TAB PO SCH ×3 (06:36→18:04)
[2022-04-24] MEDS ORDERED: SODIUM CHL 0.9% 1000 ML BAG XX ONE (07:00)
[2022-04-24] MEDS: PARoxetine 20 MG TAB PO SCH (08:30)
[2022-04-24] MEDS: ASPirin-EC 81 mg tab PO SCH (08:30)
[2022-04-24] MEDS: TICAGRELOR 90 MG TAB PO SCH ×2 (08:30→21:19)
[2022-04-24] MEDS: LORATADINE 10 MG TAB PO SCH (08:31)
[2022-04-24] MEDS: METOPROLOL TARTRATE 25 MG TAB PO SCH ×2 (08:31→21:18)
[2022-04-24] MEDS: PANTOPRAZOLE 40 MG TAB PO SCH (08:31)
[2022-04-24] MEDS: CALCIUM ACETATE 667 MG CAP PO SCH ×3 (08:31→18:05)
[2022-04-24] MEDS: ALLOPURINOL 100 MG TAB PO SCH (08:31)
[2022-04-24] MEDS: AMIODARONE HCL 200 MG TAB PO SCH (08:31)
[2022-04-24] MEDS: HYDROcodone-ACET 10/325MG TAB PO PRN ×2 (08:31→23:33)
[2022-04-24] MEDS: BUMETANIDE 1 MG TAB PO SCH ×2 (08:32→21:24)
[2022-04-24 09:00] VITALS: BP 153/40
[2022-04-24 13:00] VITALS: BP 151/65
[2022-04-24 17:00] VITALS: BP 127/41
[2022-04-24] MEDS ORDERED: EPOETIN ALFA-EPBX 4,000 UNIT/ML VIAL SC ONE (21:00)
[2022-04-24] MEDS: MONTELUKAST SODIUM 10 MG TAB PO SCH (21:19)
[2022-04-24] MEDS: GABAPENTIN 300 MG CAP PO SCH (21:19)
[2022-04-24] MEDS: traZODone HCL 50 MG TAB PO SCH (21:19)
[2022-04-24] MEDS: ATORVASTATIN 20 MG TAB PO SCH (21:20)
[2022-04-24] MEDS: Fenofibrate 160 MG TABLETS PO SCH (21:34)
[2022-04-24 22:00] VITALS: BP 169/39
[2022-04-25 02:50] VITALS: BP 169/39
[2022-04-25 05:00] VITALS: BP 167/50
[2022-04-25] MEDS: ACCU-CHEK COMFORT CURVE STRIP VI SCH ×4 (06:31→22:05)
[2022-04-25] MEDS: SEVELAMER 800 MG TAB PO SCH ×3 (06:31→17:00)
[2022-04-25] MEDS: InsuLIN REG 1unit/0.01ml Soln (100units/ml) SC SCH ×4 (06:31→22:00)
[2022-04-25] MEDS: MIDODRINE HCL 10 MG TAB PO SCH ×3 (06:31→17:44)
[2022-04-25] MEDS: CALCIUM ACETATE 667 MG CAP PO SCH ×3 (08:00→17:43)
[2022-04-25 09:00] VITALS: BP 155/50
[2022-04-25] MEDS: ALLOPURINOL 100 MG TAB PO SCH (09:07)
[2022-04-25] MEDS: PANTOPRAZOLE 40 MG TAB PO SCH (09:07)
[2022-04-25] MEDS: PARoxetine 20 MG TAB PO SCH (09:08)
[2022-04-25] MEDS: TICAGRELOR 90 MG TAB PO SCH ×2 (09:08→22:06)
[2022-04-25] MEDS: ASPirin-EC 81 mg tab PO SCH (09:08)
[2022-04-25] MEDS: AMIODARONE HCL 200 MG TAB PO SCH (09:08)
[2022-04-25] MEDS: LORATADINE 10 MG TAB PO SCH (09:08)
[2022-04-25] MEDS: BUMETANIDE 1 MG TAB PO SCH ×2 (09:17→22:00)
[2022-04-25] MEDS: METOPROLOL TARTRATE 25 MG TAB PO SCH ×2 (09:18→22:06)
[2022-04-25 12:33] VITALS: BP 164/46
[2022-04-25] MEDS: HYDROcodone-ACET 10/325MG TAB PO PRN (12:40)
[2022-04-25 17:00] VITALS: BP 163/62
[2022-04-25 22:00] VITALS: BP 126/75
[2022-04-25] MEDS: traZODone HCL 50 MG TAB PO SCH (22:00)
[2022-04-25] MEDS: Fenofibrate 160 MG TABLETS PO SCH (22:00)
[2022-04-25] MEDS: GABAPENTIN 300 MG CAP PO SCH (22:05)
[2022-04-25] MEDS: ATORVASTATIN 20 MG TAB PO SCH (22:06)
[2022-04-25] MEDS: MONTELUKAST SODIUM 10 MG TAB PO SCH (22:06)
[2022-04-26 05:00] VITALS: BP 163/38
[2022-04-26] MEDS: MIDODRINE HCL 10 MG TAB PO SCH ×3 (05:00→18:00)
[2022-04-26] MEDS: HYDROcodone-ACET 10/325MG TAB PO PRN ×3 (05:15→21:16)
[2022-04-26] MEDS: ACCU-CHEK COMFORT CURVE STRIP VI SCH ×4 (06:07→21:16)
[2022-04-26] MEDS: InsuLIN REG 1unit/0.01ml Soln (100units/ml) SC SCH ×4 (06:07→21:16)
[2022-04-26] MEDS: SEVELAMER 800 MG TAB PO SCH ×3 (06:08→18:28)
[2022-04-26] MEDS ORDERED: SODIUM CHL 0.9% 1000 ML BAG XX ONE (07:00)
[2022-04-26] MEDS: LORATADINE 10 MG TAB PO SCH (07:59)
[2022-04-26] MEDS: CALCIUM ACETATE 667 MG CAP PO SCH ×3 (07:59→18:28)
[2022-04-26 09:15] VITALS: BP 145/28
[2022-04-26] MEDS: BUMETANIDE 1 MG TAB PO SCH (10:00)
[2022-04-26] MEDS: METOPROLOL TARTRATE 25 MG TAB PO SCH (10:00)
[2022-04-26] MEDS: PARoxetine 20 MG TAB PO SCH (12:16)
[2022-04-26] MEDS: TICAGRELOR 90 MG TAB PO SCH ×2 (12:16→21:13)
[2022-04-26] MEDS: ASPirin-EC 81 mg tab PO SCH (12:16)
[2022-04-26] MEDS: ALLOPURINOL 100 MG TAB PO SCH (12:17)
[2022-04-26] MEDS: PANTOPRAZOLE 40 MG TAB PO SCH (12:17)
[2022-04-26] MEDS: AMIODARONE HCL 200 MG TAB PO SCH (12:17)
[2022-04-26 13:00] VITALS: BP 133/59
[2022-04-26 16:48] VITALS: BP 131/31
[2022-04-26] MEDS ORDERED: EPOETIN ALFA-EPBX 4,000 UNIT/ML VIAL SC ONE (21:00)
[2022-04-26] MEDS: Fenofibrate 160 MG TABLETS PO SCH (21:14)
[2022-04-26] MEDS: traZODone HCL 50 MG TAB PO SCH (21:14)
[2022-04-26] MEDS: MONTELUKAST SODIUM 10 MG TAB PO SCH (21:15)
[2022-04-26] MEDS: GABAPENTIN 300 MG CAP PO SCH (21:15)
[2022-04-26] MEDS: ATORVASTATIN 20 MG TAB PO SCH (21:20)
[2022-04-26 22:00] VITALS: BP 153/38
[2022-04-27 05:00] VITALS: BP 149/43
[2022-04-27] MEDS: MIDODRINE HCL 10 MG TAB PO SCH ×3 (05:37→18:00)
[2022-04-27] MEDS: InsuLIN REG 1unit/0.01ml Soln (100units/ml) SC SCH ×4 (05:57→21:43)
[2022-04-27] MEDS: ACCU-CHEK COMFORT CURVE STRIP VI SCH ×4 (05:57→21:39)
[2022-04-27] MEDS: SEVELAMER 800 MG TAB PO SCH ×3 (07:30→18:15)
[2022-04-27] MEDS: CALCIUM ACETATE 667 MG CAP PO SCH ×3 (07:44→18:01)
[2022-04-27] MEDS: HYDROcodone-ACET 10/325MG TAB PO PRN ×3 (07:44→21:40)
[2022-04-27] MEDS: LORATADINE 10 MG TAB PO SCH (07:44)
[2022-04-27 08:57] VITALS: BP 155/46
[2022-04-27] MEDS: PARoxetine 20 MG TAB PO SCH (09:07)
[2022-04-27] MEDS: AMIODARONE HCL 200 MG TAB PO SCH (09:07)
[2022-04-27] MEDS: PANTOPRAZOLE 40 MG TAB PO SCH (09:07)
[2022-04-27] MEDS: ALLOPURINOL 100 MG TAB PO SCH (09:08)
[2022-04-27] MEDS: TICAGRELOR 90 MG TAB PO SCH ×2 (09:08→21:37)
[2022-04-27] MEDS: ASPirin-EC 81 mg tab PO SCH (09:09)
[2022-04-27 13:00] VITALS: BP 159/42
[2022-04-27 16:51] VITALS: BP 146/36
[2022-04-27] MEDS: MONTELUKAST SODIUM 10 MG TAB PO SCH (21:38)
[2022-04-27] MEDS: traZODone HCL 50 MG TAB PO SCH (21:38)
[2022-04-27] MEDS: ATORVASTATIN 20 MG TAB PO SCH (21:38)
[2022-04-27] MEDS: GABAPENTIN 300 MG CAP PO SCH (21:38)
[2022-04-27] MEDS: Fenofibrate 160 MG TABLETS PO SCH (21:43)
[2022-04-27 22:00] VITALS: BP 144/43
[2022-04-28 05:00] VITALS: BP 135/47
[2022-04-28] MEDS: MIDODRINE HCL 10 MG TAB PO SCH ×3 (05:54→18:00)
[2022-04-28] MEDS: ACCU-CHEK COMFORT CURVE STRIP VI SCH ×4 (06:19→22:27)
[2022-04-28] MEDS: InsuLIN REG 1unit/0.01ml Soln (100units/ml) SC SCH ×4 (06:19→22:29)
[2022-04-28] MEDS ORDERED: SODIUM CHL 0.9% 1000 ML BAG XX ONE (07:00)
[2022-04-28] MEDS: CALCIUM ACETATE 667 MG CAP PO SCH ×3 (07:58→18:36)
[2022-04-28] MEDS: SEVELAMER 800 MG TAB PO SCH ×3 (07:58→17:29)
[2022-04-28] MEDS: LORATADINE 10 MG TAB PO SCH (08:01)
[2022-04-28] MEDS: TICAGRELOR 90 MG TAB PO SCH ×2 (08:57→22:25)
[2022-04-28] MEDS: PARoxetine 20 MG TAB PO SCH (08:57)
[2022-04-28] MEDS: AMIODARONE HCL 200 MG TAB PO SCH (08:57)
[2022-04-28] MEDS: ASPirin-EC 81 mg tab PO SCH (08:58)
[2022-04-28] MEDS: PANTOPRAZOLE 40 MG TAB PO SCH (08:58)
[2022-04-28] MEDS: ALLOPURINOL 100 MG TAB PO SCH (08:58)
[2022-04-28 09:00] VITALS: BP 142/46
[2022-04-28] MEDS: HYDROcodone-ACET 10/325MG TAB PO PRN ×3 (09:04→22:24)
[2022-04-28 13:00] VITALS: BP 144/42
[2022-04-28 13:43] LABS: BUN/Creatinine Ratio 6.3; Calcium 8.4 mg/dL (8.5-10.1); Potassium 4.9 mmol/L (3.5-5.1)
[2022-04-28 13:47] LABS: Hematocrit 29.7 % (41.0-53.0); Hemoglobin 9.4 g/dL (13.5-17.5); Mean Corpuscular Hemoglobin 32.1 pg (28.0-32.0); Mean Corpuscular Hgb Conc. 31.8 g/dL (32.0-36.0); Mean Corpuscular Volume 101.1 fL (80.0-100.0); Red Blood Cells 2.94 10^6/uL (4.5-5.90); Red Cell Distribution Width 15.3 % (11.8-14.3); White Blood Cell 3.2 10^3/uL (4.4-10.8)
[2022-04-28 13:50] LABS: Basophils % (manual) 0 (0.0-2.0); Blast Cells 0; Metamyelocytes % 0; Myelocytes % 0; Promyelocytes % 0; Reactive Lymphocytes 0
[2022-04-28 14:08] LABS: Band Neutrophils % (manual) 17; Eosinophils % (manual) 15 (0-7); Lymphocytes % (manual) 14 (10.0-50.0); Monocytes % (manual) 5 (0-12)
[2022-04-28 17:00] VITALS: BP 142/39
[2022-04-28] MEDS ORDERED: EPOETIN ALFA-EPBX 10,000 UNIT/1ML VIAL SC ONE (21:00)
[2022-04-28 21:33] VITALS: BP 123/35
[2022-04-28] MEDS: Fenofibrate 160 MG TABLETS PO SCH (22:00)
[2022-04-28] MEDS: GABAPENTIN 300 MG CAP PO SCH (22:26)
[2022-04-28] MEDS: MONTELUKAST SODIUM 10 MG TAB PO SCH (22:26)
[2022-04-28] MEDS: traZODone HCL 50 MG TAB PO SCH (22:26)
[2022-04-28] MEDS: ATORVASTATIN 20 MG TAB PO SCH (22:26)
[2022-04-29 05:00] VITALS: BP 137/43
[2022-04-29 05:27] LABS: Hemoglobin 9.1 g/dL (13.5-17.5); Mean Corpuscular Hemoglobin 32.2 pg (28.0-32.0); Mean Corpuscular Hgb Conc. 32.5 g/dL (32.0-36.0); Mean Corpuscular Volume 99.1 fL (80.0-100.0); Red Blood Cells 2.83 10^6/uL (4.5-5.90); Red Cell Distribution Width 15.1 % (11.8-14.3); White Blood Cell 3.7 10^3/uL (4.4-10.8)
[2022-04-29 05:32] LABS: Albumin 2.9 g/dL (3.4-5.0); Calcium 8.1 mg/dL (8.5-10.1); Potassium 5.1 mmol/L (3.5-5.1)
[2022-04-29 05:37] LABS: BUN/Creatinine Ratio 6.5; Bilirubin, Total 0.8 mg/dL (0.2-1.0); Total Protein 5.9 g/dL (6.4-8.2)
[2022-04-29] MEDS: MIDODRINE HCL 10 MG TAB PO SCH ×3 (05:40→18:00)
[2022-04-29 05:56] LABS: Basophils % (manual) 0 (0.0-2.0); Blast Cells 0; Metamyelocytes % 0; Myelocytes % 0; Promyelocytes % 0; Reactive Lymphocytes 0
[2022-04-29] MEDS: ACCU-CHEK COMFORT CURVE STRIP VI SCH ×4 (05:57→22:22)
[2022-04-29] MEDS: InsuLIN REG 1unit/0.01ml Soln (100units/ml) SC SCH ×4 (05:57→22:00)
[2022-04-29] MEDS: SEVELAMER 800 MG TAB PO SCH ×3 (07:49→18:21)
[2022-04-29] MEDS: HYDROcodone-ACET 10/325MG TAB PO PRN ×3 (07:50→22:50)
[2022-04-29] MEDS: CALCIUM ACETATE 667 MG CAP PO SCH ×3 (07:50→18:21)
[2022-04-29] MEDS: LORATADINE 10 MG TAB PO SCH (07:50)
[2022-04-29 08:52] LABS: Band Neutrophils % (manual) 10; Lymphocytes % (manual) 21 (10.0-50.0); Monocytes % (manual) 11 (0-12)
[2022-04-29 08:54] LABS: Eosinophils % (manual) 19 (0-7)
[2022-04-29 09:00] VITALS: BP 157/52
[2022-04-29] MEDS: TICAGRELOR 90 MG TAB PO SCH ×2 (09:56→22:19)
[2022-04-29] MEDS: PANTOPRAZOLE 40 MG TAB PO SCH (09:57)
[2022-04-29] MEDS: ASPirin-EC 81 mg tab PO SCH (09:57)
[2022-04-29] MEDS: ALLOPURINOL 100 MG TAB PO SCH (09:57)
[2022-04-29] MEDS: PARoxetine 20 MG TAB PO SCH (09:57)
[2022-04-29] MEDS: ALBUMIN 25% 100 ML IV SCH ×2 (10:37→12:00)
[2022-04-29 12:33] VITALS: BP 152/57
[2022-04-29] MEDS: AMIODARONE HCL 200 MG TAB PO SCH (12:43)
[2022-04-29] MEDS ORDERED: hydrALAZINE HCL 20 MG/ML VL IV PRN (16:00)
[2022-04-29 17:00] VITALS: BP 139/28
[2022-04-29 21:28] VITALS: BP 125/50
[2022-04-29] MEDS: MONTELUKAST SODIUM 10 MG TAB PO SCH (22:19)
[2022-04-29] MEDS: GABAPENTIN 300 MG CAP PO SCH (22:19)
[2022-04-29] MEDS: ATORVASTATIN 20 MG TAB PO SCH (22:19)
[2022-04-29] MEDS: traZODone HCL 50 MG TAB PO SCH (22:19)
[2022-04-30 04:32] VITALS: BP 147/60
[2022-04-30] MEDS: MIDODRINE HCL 10 MG TAB PO SCH ×3 (06:00→18:00)
[2022-04-30] MEDS: ACCU-CHEK COMFORT CURVE STRIP VI SCH ×4 (06:49→21:31)
[2022-04-30] MEDS: InsuLIN REG 1unit/0.01ml Soln (100units/ml) SC SCH ×4 (07:20→21:34)
[2022-04-30] MEDS: LORATADINE 10 MG TAB PO SCH (08:29)
[2022-04-30] MEDS: AMIODARONE HCL 200 MG TAB PO SCH (08:29)
[2022-04-30] MEDS: ALLOPURINOL 100 MG TAB PO SCH (08:29)
[2022-04-30] MEDS: ASPirin-EC 81 mg tab PO SCH (08:29)
[2022-04-30] MEDS: PANTOPRAZOLE 40 MG TAB PO SCH (08:29)
[2022-04-30] MEDS: TICAGRELOR 90 MG TAB PO SCH ×2 (08:29→21:27)
[2022-04-30] MEDS: CALCIUM ACETATE 667 MG CAP PO SCH ×3 (08:29→18:19)
[2022-04-30] MEDS: PARoxetine 20 MG TAB PO SCH (08:30)
[2022-04-30] MEDS: HYDROcodone-ACET 10/325MG TAB PO PRN ×3 (08:30→22:57)
[2022-04-30] MEDS: SEVELAMER 800 MG TAB PO SCH ×3 (08:30→18:19)
[2022-04-30 09:00] VITALS: BP 169/60
[2022-04-30 13:00] VITALS: BP 155/50
[2022-04-30 17:00] VITALS: BP 150/47
[2022-04-30] MEDS: GABAPENTIN 300 MG CAP PO SCH (21:28)
[2022-04-30] MEDS: traZODone HCL 50 MG TAB PO SCH (21:28)
[2022-04-30] MEDS: MONTELUKAST SODIUM 10 MG TAB PO SCH (21:28)
[2022-04-30] MEDS: Fenofibrate 160 MG TABLETS PO SCH (21:29)
[2022-04-30] MEDS: ATORVASTATIN 20 MG TAB PO SCH (21:30)
[2022-04-30 22:00] VITALS: BP 151/39
[2022-05-01 05:00] VITALS: BP 137/45
[2022-05-01] MEDS: MIDODRINE HCL 10 MG TAB PO SCH (06:00)
[2022-05-01] MEDS: ACCU-CHEK COMFORT CURVE STRIP VI SCH ×4 (06:39→21:50)
[2022-05-01] MEDS: InsuLIN REG 1unit/0.01ml Soln (100units/ml) SC SCH ×4 (06:45→21:54)
[2022-05-01] MEDS: HYDROcodone-ACET 10/325MG TAB PO PRN ×3 (06:48→21:54)
[2022-05-01] MEDS ORDERED: SODIUM CHL 0.9% 1000 ML BAG XX ONE (07:00)
[2022-05-01] MEDS: CALCIUM ACETATE 667 MG CAP PO SCH ×3 (08:03→18:08)
[2022-05-01] MEDS: SEVELAMER 800 MG TAB PO SCH ×3 (08:04→18:08)
[2022-05-01] MEDS: TICAGRELOR 90 MG TAB PO SCH ×2 (08:04→21:42)
[2022-05-01] MEDS: PARoxetine 20 MG TAB PO SCH (08:04)
[2022-05-01] MEDS: ASPirin-EC 81 mg tab PO SCH (08:04)
[2022-05-01] MEDS: ALLOPURINOL 100 MG TAB PO SCH (08:04)
[2022-05-01] MEDS: LORATADINE 10 MG TAB PO SCH (08:04)
[2022-05-01] MEDS: PANTOPRAZOLE 40 MG TAB PO SCH (08:04)
[2022-05-01] MEDS: AMIODARONE HCL 200 MG TAB PO SCH (08:04)
[2022-05-01] MEDS: LIQUACEL PROTEIN PO SCH (08:05)
[2022-05-01 09:00] VITALS: BP 177/50
[2022-05-01 13:00] VITALS: BP 93/47
[2022-05-01] MEDS: MIDODRINE HCL 10 MG TAB PO PRN (13:47)
[2022-05-01] MEDS ORDERED: ALBUMIN 25% 100 ML IV ONE (13:52)
[2022-05-01] MEDS: ALBUMIN 25% 100 ML IV PRN ×2 (13:58→15:05)
[2022-05-01 17:00] VITALS: BP 117/34
[2022-05-01] MEDS ORDERED: EPOETIN ALFA-EPBX 4,000 UNIT/ML VIAL SC ONE (21:00)
[2022-05-01] MEDS: traZODone HCL 50 MG TAB PO SCH (21:42)
[2022-05-01] MEDS: GABAPENTIN 300 MG CAP PO SCH (21:42)
[2022-05-01] MEDS: ATORVASTATIN 20 MG TAB PO SCH (21:42)
[2022-05-01] MEDS: Fenofibrate 160 MG TABLETS PO SCH (21:43)
[2022-05-01] MEDS: MONTELUKAST SODIUM 10 MG TAB PO SCH (21:43)
[2022-05-01 22:00] VITALS: BP 129/63
[2022-05-02 05:00] VITALS: BP 151/46
[2022-05-02 05:51] LABS: BUN/Creatinine Ratio 5.2; Calcium 8.5 mg/dL (8.5-10.1); Potassium 4.4 mmol/L (3.5-5.1)
[2022-05-02] MEDS: InsuLIN REG 1unit/0.01ml Soln (100units/ml) SC SCH ×4 (06:41→22:44)
[2022-05-02] MEDS: ACCU-CHEK COMFORT CURVE STRIP VI SCH ×4 (06:41→22:41)
[2022-05-02 09:00] VITALS: BP 153/70
[2022-05-02] MEDS: AMIODARONE HCL 200 MG TAB PO SCH (09:15)
[2022-05-02] MEDS: ASPirin-EC 81 mg tab PO SCH (09:15)
[2022-05-02] MEDS: PARoxetine 20 MG TAB PO SCH (09:15)
[2022-05-02] MEDS: SEVELAMER 800 MG TAB PO SCH ×3 (09:15→17:51)
[2022-05-02] MEDS: TICAGRELOR 90 MG TAB PO SCH ×2 (09:15→22:39)
[2022-05-02] MEDS: CALCIUM ACETATE 667 MG CAP PO SCH ×3 (09:15→17:51)
[2022-05-02] MEDS: PANTOPRAZOLE 40 MG TAB PO SCH (09:15)
[2022-05-02] MEDS: ALLOPURINOL 100 MG TAB PO SCH (09:16)
[2022-05-02] MEDS: LORATADINE 10 MG TAB PO SCH (09:16)
[2022-05-02] MEDS: LIQUACEL PROTEIN PO SCH (09:18)
[2022-05-02] MEDS: HYDROcodone-ACET 10/325MG TAB PO PRN ×2 (09:20→17:59)
[2022-05-02 13:00] VITALS: BP 148/78
[2022-05-02] MEDS ORDERED: DEXTROSE (50%) 50ML SYRG IV PRN (14:00)
[2022-05-02 17:00] VITALS: BP 138/71
[2022-05-02 22:00] VITALS: BP 134/31
[2022-05-02] MEDS: traZODone HCL 50 MG TAB PO SCH (22:39)
[2022-05-02] MEDS: MONTELUKAST SODIUM 10 MG TAB PO SCH (22:39)
[2022-05-02] MEDS: ATORVASTATIN 20 MG TAB PO SCH (22:39)
[2022-05-02] MEDS: GABAPENTIN 300 MG CAP PO SCH (22:39)
[2022-05-02] MEDS: Fenofibrate 160 MG TABLETS PO SCH (22:40)
[2022-05-03 05:00] VITALS: BP 127/58
[2022-05-03] MEDS: ACCU-CHEK COMFORT CURVE STRIP VI SCH ×4 (06:31→22:00)
[2022-05-03] MEDS: SEVELAMER 800 MG TAB PO SCH ×3 (06:31→18:27)
[2022-05-03] MEDS: InsuLIN REG 1unit/0.01ml Soln (100units/ml) SC SCH ×4 (06:33→22:47)
[2022-05-03] MEDS ORDERED: SODIUM CHL 0.9% 1000 ML BAG XX ONE (07:00)
[2022-05-03] MEDS: CALCIUM ACETATE 667 MG CAP PO SCH ×3 (08:54→18:27)
[2022-05-03] MEDS: PANTOPRAZOLE 40 MG TAB PO SCH (08:54)
[2022-05-03] MEDS: ALLOPURINOL 100 MG TAB PO SCH (08:55)
[2022-05-03] MEDS: LORATADINE 10 MG TAB PO SCH (08:55)
[2022-05-03] MEDS: PARoxetine 20 MG TAB PO SCH (08:55)
[2022-05-03] MEDS: ASPirin-EC 81 mg tab PO SCH (08:58)
[2022-05-03] MEDS: AMIODARONE HCL 200 MG TAB PO SCH (08:59)
[2022-05-03] MEDS: TICAGRELOR 90 MG TAB PO SCH ×2 (08:59→22:43)
[2022-05-03 09:00] VITALS: BP 128/68
[2022-05-03] MEDS: LIQUACEL PROTEIN PO SCH (09:00)
[2022-05-03 13:00] VITALS: BP 144/61
[2022-05-03] MEDS: HYDROcodone-ACET 10/325MG TAB PO PRN ×2 (15:44→22:42)
[2022-05-03 17:00] VITALS: BP 131/66
[2022-05-03] MEDS ORDERED: EPOETIN ALFA-EPBX 4,000 UNIT/ML VIAL SC ONE (21:00)
[2022-05-03 22:00] VITALS: BP 123/37
[2022-05-03] MEDS: MONTELUKAST SODIUM 10 MG TAB PO SCH (22:42)
[2022-05-03] MEDS: traZODone HCL 50 MG TAB PO SCH (22:42)
[2022-05-03] MEDS: GABAPENTIN 300 MG CAP PO SCH (22:43)
[2022-05-03] MEDS: ATORVASTATIN 20 MG TAB PO SCH (22:43)
[2022-05-03] MEDS: Fenofibrate 160 MG TABLETS PO SCH (22:53)
[2022-05-04 05:00] VITALS: BP 123/51
[2022-05-04] MEDS: SEVELAMER 800 MG TAB PO SCH ×3 (06:36→17:23)
[2022-05-04] MEDS: InsuLIN REG 1unit/0.01ml Soln (100units/ml) SC SCH ×4 (06:37→22:14)
[2022-05-04] MEDS: ACCU-CHEK COMFORT CURVE STRIP VI SCH ×4 (06:37→22:15)
[2022-05-04] MEDS: CALCIUM ACETATE 667 MG CAP PO SCH ×3 (08:43→17:40)
[2022-05-04] MEDS: LORATADINE 10 MG TAB PO SCH (08:43)
[2022-05-04 09:29] VITALS: BP 141/57
[2022-05-04] MEDS: PANTOPRAZOLE 40 MG TAB PO SCH (09:51)
[2022-05-04] MEDS: HYDROcodone-ACET 10/325MG TAB PO PRN ×2 (09:51→15:36)
[2022-05-04] MEDS: AMIODARONE HCL 200 MG TAB PO SCH (09:51)
[2022-05-04] MEDS: PARoxetine 20 MG TAB PO SCH (09:51)
[2022-05-04] MEDS: LIQUACEL PROTEIN PO SCH (09:52)
[2022-05-04] MEDS: ASPirin-EC 81 mg tab PO SCH (09:52)
[2022-05-04] MEDS: ALLOPURINOL 100 MG TAB PO SCH (09:52)
[2022-05-04] MEDS: TICAGRELOR 90 MG TAB PO SCH ×2 (09:52→22:15)
[2022-05-04 12:47] VITALS: BP 145/44
[2022-05-04 15:04] VITALS: BP 145/44
[2022-05-04] MEDS ORDERED: SODIUM CHL 0.9% 1000 ML BAG XX ONE (16:00)
[2022-05-04 16:31] VITALS: BP 136/60
[2022-05-04] MEDS: MIDODRINE HCL 10 MG TAB PO PRN (16:45)
[2022-05-04] MEDS ORDERED: EPOETIN ALFA-EPBX 4,000 UNIT/ML VIAL SC ONE ×2 (18:30→21:00)
[2022-05-04 22:00] VITALS: BP 131/43
[2022-05-04] MEDS: Fenofibrate 160 MG TABLETS PO SCH (22:00)
[2022-05-04] MEDS: MONTELUKAST SODIUM 10 MG TAB PO SCH (22:15)
[2022-05-04] MEDS: ATORVASTATIN 20 MG TAB PO SCH (22:15)
[2022-05-04] MEDS: GABAPENTIN 300 MG CAP PO SCH (22:15)
[2022-05-04] MEDS: traZODone HCL 50 MG TAB PO SCH (22:15)
[2022-05-05 05:00] VITALS: BP 126/36
[2022-05-05] MEDS: InsuLIN REG 1unit/0.01ml Soln (100units/ml) SC SCH ×2 (06:18→11:30)
[2022-05-05] MEDS: ACCU-CHEK COMFORT CURVE STRIP VI SCH ×2 (06:21→11:30)
[2022-05-05] MEDS: SEVELAMER 800 MG TAB PO SCH ×2 (06:21→11:30)
[2022-05-05] MEDS: CALCIUM ACETATE 667 MG CAP PO SCH (08:54)
[2022-05-05] MEDS: LORATADINE 10 MG TAB PO SCH (08:54)
[2022-05-05] MEDS: HYDROcodone-ACET 10/325MG TAB PO PRN (08:55)
[2022-05-05 09:00] VITALS: BP 130/46
[2022-05-05] MEDS: PARoxetine 20 MG TAB PO SCH (09:42)
[2022-05-05] MEDS: AMIODARONE HCL 200 MG TAB PO SCH (09:42)
[2022-05-05] MEDS: PANTOPRAZOLE 40 MG TAB PO SCH (09:42)
[2022-05-05] MEDS: ALLOPURINOL 100 MG TAB PO SCH (09:42)
[2022-05-05] MEDS: TICAGRELOR 90 MG TAB PO SCH (09:42)
[2022-05-05] MEDS: ASPirin-EC 81 mg tab PO SCH (09:42)
[2022-05-05] MEDS: LIQUACEL PROTEIN PO SCH (09:43)
== END 2022-05-05 10:50 | disposition home health service (06) | DRG 640 ==
LOC: EDBD 19:01 → ER 19:03 → TELE 22:41 → TELE-EAST 04-22 21:49
PROVIDERS: ADMIT Internal Medicine; ATTEND Internal Medicine
PROC: 5A1D70Z Performance of Urinary Filtration, Intermittent, Less than 6 Hours Per Day (ICD-10-PCS; 2022-04-22)
PROC: 5A1D70Z Performance of Urinary Filtration, Intermittent, Less than 6 Hours Per Day (ICD-10-PCS; 2022-04-24)
PROC: 5A1D70Z Performance of Urinary Filtration, Intermittent, Less than 6 Hours Per Day (ICD-10-PCS; 2022-04-26)
PROC: 5A1D70Z Performance of Urinary Filtration, Intermittent, Less than 6 Hours Per Day (ICD-10-PCS; 2022-04-29)
PROC: 5A1D70Z Performance of Urinary Filtration, Intermittent, Less than 6 Hours Per Day (ICD-10-PCS; principal; 2022-05-01)
PROC: 5A1D70Z Performance of Urinary Filtration, Intermittent, Less than 6 Hours Per Day (ICD-10-PCS; 2022-05-04)
DX: E87.5 Hyperkalemia (principal); G93.41 Metabolic encephalopathy; N18.6 End stage renal disease; I13.2 Hypertensive heart and chronic kidney disease with heart failure and with stage 5 chronic kidney disease, or end stage renal disease; E83.39 Other disorders of phosphorus metabolism; D63.8 Anemia in other chronic diseases classified elsewhere; E11.621 Type 2 diabetes mellitus with foot ulcer; E11.649 Type 2 diabetes mellitus with hypoglycemia without coma; E88.09 Other disorders of plasma-protein metabolism, not elsewhere classified; E78.5 Hyperlipidemia, unspecified; L97.529 Non-pressure chronic ulcer of other part of left foot with unspecified severity; J45.909 Unspecified asthma, uncomplicated; R79.89 Other specified abnormal findings of blood chemistry; I25.10 Atherosclerotic heart disease of native coronary artery without angina pectoris; L97.519 Non-pressure chronic ulcer of other part of right foot with unspecified severity; E11.22 Type 2 diabetes mellitus with diabetic chronic kidney disease; I50.9 Heart failure, unspecified; Z74.01 Bed confinement status; Z82.49 Family history of ischemic heart disease and other diseases of the circulatory system; Z83.3 Family history of diabetes mellitus; Z91.15 Patient's noncompliance with renal dialysis; Z88.0 Allergy status to penicillin; Z99.2 Dependence on renal dialysis; Z79.4 Long term (current) use of insulin
CPT/HCPCS: 36415; 70450; 71045; 73502; 73560; 80048; 80053; 82962; 83735; 83880; 84484; 85007; 85014; 85018; 85025; 85027; 85610; 85730; 87426; 87804; 90935; 93005; 96365; 96375; 97110; 97116; 97163; 97530; G0378; J1642; J1815; P9047

== ENCOUNTER 2022-06-07 14:45 | Inpatient (IN) | payer MEDICARE, MEDICAID ==
[~2022-06-07] VITALS: Ht 177.8 cm; Wt 117.7 kg
[~2022-06-07 14:45] MED LIST changes: +PERCOT PO
[2022-06-07 15:44] LABS: Hemoglobin 9.1 g/dL (13.5-17.5); Lymphocytes # (auto) 0.6 10 ^3/uL (0.4-5.4); Red Blood Cells 2.78 10^6/uL (4.5-5.90); Red Cell Distribution Width 15.2 % (11.8-14.3)
[2022-06-07 15:52] LABS: Basophils # (auto) 0.1 10 ^3/uL (0-0.2); Basophils % (auto) 2.8 % (0.0-2.0); Eosinophils # (auto) 0.3 10 ^3/uL (0-0.8); Eosinophils % (auto) 7.9 % (0.0-7.0); Hematocrit 28.3 % (41.0-53.0); Lymphocytes % (auto) 14.3 % (10.0-50.0); Mean Corpuscular Hemoglobin 32.8 pg (28.0-32.0); Mean Corpuscular Hgb Conc. 32.2 g/dL (32.0-36.0); Mean Corpuscular Volume 101.9 fL (80.0-100.0); Monocytes # (auto) 0.3 10 ^3/uL (0-1.3); Monocytes % (auto) 6.9 % (0.0-12.0); Neutrophils # (auto) 2.8 10 ^3/uL (1.6-8.6); Neutrophils % (auto) 68.1 % (37.0-80.0); Nucleated Red Blood Cells % 0.1 %; White Blood Cell 4.1 10^3/uL (4.4-10.8)
[2022-06-07 15:58] LABS: Albumin 2.5 g/dL (3.4-5.0); Calcium 8.4 mg/dL (8.5-10.1); Magnesium 2.1 mg/dL (1.6-2.6); Potassium 3.7 mmol/L (3.5-5.1)
[2022-06-07 16:02] LABS: BUN/Creatinine Ratio 6.8; Bilirubin, Total 0.7 mg/dL (0.2-1.0); Total Protein 5.9 g/dL (6.4-8.2)
[2022-06-07] MEDS ORDERED: DexAMETHasone SOD PHOS 10MG/1ML VIAL INJ IV ONE (16:45)
[2022-06-07] MEDS ORDERED: ALBUTEROL SULF 2.5 MG/0.5ML(0.5%) NEB SOLN NEB ONE (16:45)
[2022-06-07] MEDS ORDERED: IPRATROPIUM BROM 0.5 MG/2.5ML INH SOL NEB ONE (16:45)
[2022-06-07] MEDS ORDERED: ALBUTEROL SULF 2.5 MG/0.5ML(0.5%) NEB SOLN ONE (16:51)
[2022-06-07] MEDS ORDERED: IPRATROPIUM BROM 0.5 MG/2.5ML INH SOL ONE (16:51)
[2022-06-07] MEDS ORDERED: D5W/SOD CHL 0.45% 1,000 ML IV ONE (18:00)
[2022-06-07] MEDS ORDERED: ONDANSETRON HCL 4 MG/2 ML VIAL IV PRN (20:00)
[2022-06-07] MEDS ORDERED: DEXTROSE (50%) 50ML SYRG IV PRN (20:00)
[2022-06-07] MEDS ORDERED: DOCUSATE SOD 100 MG CAP PO PRN (20:00)
[2022-06-07] MEDS ORDERED: MORPHINE SULFATE INJ 2 MG/ml SYRG IV PRN (20:00)
[2022-06-07] MEDS ORDERED: ACETAMINOPHEN 325 MG TAB PO PRN (20:00)
[2022-06-07] MEDS ORDERED: HYDROcodone-ACET 5/325MG TAB PO PRN (20:00)
[2022-06-07] MEDS ORDERED: NITROGLYCERIN 0.4 MG SL TAB SL PRN (20:00)
[2022-06-07] MEDS: ACCU-CHEK COMFORT CURVE STRIP VI SCH ×2 (20:09→22:46)
[2022-06-07 20:21] VITALS: BP 108/38
[2022-06-07] MEDS: ALBUTEROL SULF 2.5 MG/0.5ML(0.5%) NEB SOLN NEB PRN (20:58)
[2022-06-07] MEDS: IPRATROPIUM BROM 0.5 MG/2.5ML INH SOL NEB PRN (20:58)
[2022-06-07] MEDS: PATIENTS OWN MEDICATION (Fenofibrate 160 MG) PO SCH (22:00)
[2022-06-07] MEDS: SODIUM CHLOR 0.9% PF (SALINE LOCK) 10ML VIAL/SYR IV SCH (22:00)
[2022-06-07] MEDS: MONTELUKAST SODIUM 10 MG TAB PO SCH (22:42)
[2022-06-07] MEDS: traZODone HCL 50 MG TAB PO SCH (22:43)
[2022-06-07] MEDS: CALCIUM ACETATE 667 MG CAP PO SCH (22:43)
[2022-06-07] MEDS: TICAGRELOR 90 MG TAB PO SCH (22:43)
[2022-06-07] MEDS: METOPROLOL TARTRATE 25 MG TAB PO SCH (22:44)
[2022-06-07] MEDS: GABAPENTIN 300 MG CAP PO SCH (22:45)
[2022-06-07] MEDS: SEVELAMER 800 MG TAB PO SCH (22:45)
[2022-06-07] MEDS: OXYCODONE W/ ACETAMINOPHEN 5/325MG TABLET PO PRN (22:45)
[2022-06-08] MEDS: ACCU-CHEK COMFORT CURVE STRIP VI SCH ×12 (00:28→21:37)
[2022-06-08 05:57] LABS: Basophils # (auto) 0 10 ^3/uL (0-0.2); Eosinophils # (auto) 0 10 ^3/uL (0-0.8); Eosinophils % (auto) 0.2 % (0.0-7.0); Nucleated Red Blood Cells % 0.2 %; White Blood Cell 2.1 10^3/uL (4.4-10.8)
[2022-06-08 06:01] LABS: Basophils % (auto) 0.6 % (0.0-2.0); Hematocrit 28.4 % (41.0-53.0); Hemoglobin 9.5 g/dL (13.5-17.5); Lymphocytes # (auto) 0.3 10 ^3/uL (0.4-5.4); Lymphocytes % (auto) 16.5 % (10.0-50.0); Mean Corpuscular Hgb Conc. 33.5 g/dL (32.0-36.0); Mean Corpuscular Volume 101.6 fL (80.0-100.0); Monocytes # (auto) 0.1 10 ^3/uL (0-1.3); Monocytes % (auto) 2.5 % (0.0-12.0); Neutrophils # (auto) 1.6 10 ^3/uL (1.6-8.6); Neutrophils % (auto) 80.2 % (37.0-80.0); Red Blood Cells 2.79 10^6/uL (4.5-5.90); Red Cell Distribution Width 15.3 % (11.8-14.3)
[2022-06-08 06:19] LABS: Potassium 4.1 mmol/L (3.5-5.1)
[2022-06-08] MEDS: SODIUM CHLOR 0.9% PF (SALINE LOCK) 10ML VIAL/SYR IV SCH ×3 (06:20→20:41)
[2022-06-08 06:31] LABS: Albumin 2.5 g/dL (3.4-5.0); Calcium 8.2 mg/dL (8.5-10.1)
[2022-06-08] MEDS: CALCIUM ACETATE 667 MG CAP PO SCH ×3 (06:42→21:36)
[2022-06-08] MEDS: SEVELAMER 800 MG TAB PO SCH ×3 (06:42→21:36)
[2022-06-08 06:57] LABS: Bilirubin, Total 0.7 mg/dL (0.2-1.0); Total Protein 6.1 g/dL (6.4-8.2)
[2022-06-08] MEDS: METOPROLOL TARTRATE 25 MG TAB PO SCH ×2 (10:00→21:35)
[2022-06-08] MEDS: AMIODARONE HCL 200 MG TAB PO SCH (10:59)
[2022-06-08] MEDS: PARoxetine 20 MG TAB PO SCH (10:59)
[2022-06-08] MEDS: ALLOPURINOL 100 MG TAB PO SCH (11:00)
[2022-06-08] MEDS: LORATADINE 10 MG TAB PO SCH (11:00)
[2022-06-08] MEDS: ASPirin-EC 81 mg tab PO SCH (11:00)
[2022-06-08] MEDS: PANTOPRAZOLE 40 MG/10 ML VIAL INJ IV SCH (11:02)
[2022-06-08] MEDS: OXYCODONE W/ ACETAMINOPHEN 5/325MG TABLET PO PRN ×2 (11:02→19:00)
[2022-06-08] MEDS: TICAGRELOR 90 MG TAB PO SCH ×2 (11:15→21:35)
[2022-06-08] MEDS: IPRATROPIUM BROM 0.5 MG/2.5ML INH SOL NEB PRN (15:29)
[2022-06-08] MEDS: ALBUTEROL SULF 2.5 MG/0.5ML(0.5%) NEB SOLN NEB PRN (15:29)
[2022-06-08] MEDS: FUROSEMIDE 40 MG/4 ML VIAL IV SCH (18:00)
[2022-06-08] MEDS: ATORVASTATIN 20 MG TAB PO SCH (19:01)
[2022-06-08 19:50] VITALS: BP 129/30
[2022-06-08] MEDS: PATIENTS OWN MEDICATION (Fenofibrate 160 MG) PO SCH (21:35)
[2022-06-08] MEDS: traZODone HCL 50 MG TAB PO SCH (21:35)
[2022-06-08] MEDS: GABAPENTIN 300 MG CAP PO SCH (21:36)
[2022-06-08] MEDS: MONTELUKAST SODIUM 10 MG TAB PO SCH (21:36)
[2022-06-08] MEDS: ALPRAZolam 0.5 MG TAB PO SCH (22:46)
[2022-06-09] VITALS (7 sets, daily range): BP systolic 104–129; BP diastolic 32–56
[2022-06-09] MEDS: ACCU-CHEK COMFORT CURVE STRIP VI SCH ×11 (00:05→20:10)
[2022-06-09] MEDS: OXYCODONE W/ ACETAMINOPHEN 5/325MG TABLET PO PRN ×3 (02:00→18:20)
[2022-06-09] MEDS: FUROSEMIDE 40 MG/4 ML VIAL IV SCH ×2 (06:00→18:00)
[2022-06-09] MEDS: CALCIUM ACETATE 667 MG CAP PO SCH ×3 (06:14→21:33)
[2022-06-09] MEDS: SODIUM CHLOR 0.9% PF (SALINE LOCK) 10ML VIAL/SYR IV SCH ×3 (06:14→21:34)
[2022-06-09] MEDS: SEVELAMER 800 MG TAB PO SCH ×3 (06:15→21:32)
[2022-06-09] MEDS ORDERED: SODIUM CHL 0.9% 1000 ML BAG XX ONE (07:00)
[2022-06-09 08:00] LABS: Hematocrit 26.7 % (41.0-53.0); Hemoglobin 8.9 g/dL (13.5-17.5)
[2022-06-09] MEDS: LORATADINE 10 MG TAB PO SCH (08:32)
[2022-06-09] MEDS: AMIODARONE HCL 200 MG TAB PO SCH (10:00)
[2022-06-09] MEDS: METOPROLOL TARTRATE 25 MG TAB PO SCH ×2 (10:00→21:33)
[2022-06-09] MEDS: ASPirin-EC 81 mg tab PO SCH (10:21)
[2022-06-09] MEDS: TICAGRELOR 90 MG TAB PO SCH ×2 (10:22→21:33)
[2022-06-09] MEDS: ALLOPURINOL 100 MG TAB PO SCH (10:22)
[2022-06-09] MEDS: PARoxetine 20 MG TAB PO SCH (10:22)
[2022-06-09] MEDS: PANTOPRAZOLE 40 MG/10 ML VIAL INJ IV SCH (10:24)
[2022-06-09] MEDS: ALBUMIN 25% 100 ML IV SCH ×2 (15:57→16:43)
[2022-06-09] MEDS: ATORVASTATIN 20 MG TAB PO SCH (18:20)
[2022-06-09] MEDS ORDERED: EPOETIN ALFA-EPBX 10,000 UNIT/1ML VIAL SC ONE (21:00)
[2022-06-09] MEDS ORDERED: DEXTROSE (50%) 50ML SYRG IV PRN (21:15)
[2022-06-09] MEDS: traZODone HCL 50 MG TAB PO SCH (21:32)
[2022-06-09] MEDS: GABAPENTIN 300 MG CAP PO SCH (21:33)
[2022-06-09] MEDS: MONTELUKAST SODIUM 10 MG TAB PO SCH (21:34)
[2022-06-09] MEDS: PATIENTS OWN MEDICATION (Fenofibrate 160 MG) PO SCH (21:35)
[2022-06-09] MEDS: MUPIROCIN 2% OINT 15gm or 22gm FOR MRSA NARES EACHNOSTRI SCH (21:35)
[2022-06-10] VITALS (7 sets, daily range): BP systolic 16–152; BP diastolic 26–66
[2022-06-10] MEDS: ALPRAZolam 0.5 MG TAB PO SCH ×2 (00:08→23:23)
[2022-06-10] MEDS: ACCU-CHEK COMFORT CURVE STRIP VI SCH ×5 (00:09→23:30)
[2022-06-10] MEDS: InsuLIN REG 1unit/0.01ml Soln (100units/ml) SC SCH ×5 (00:13→23:30)
[2022-06-10] MEDS: OXYCODONE W/ ACETAMINOPHEN 5/325MG TABLET PO PRN ×3 (02:57→20:38)
[2022-06-10] MEDS: CALCIUM ACETATE 667 MG CAP PO SCH ×3 (05:34→21:56)
[2022-06-10] MEDS: SEVELAMER 800 MG TAB PO SCH ×3 (05:34→21:55)
[2022-06-10] MEDS: SODIUM CHLOR 0.9% PF (SALINE LOCK) 10ML VIAL/SYR IV SCH ×3 (05:34→21:59)
[2022-06-10] MEDS: LORATADINE 10 MG TAB PO SCH (09:29)
[2022-06-10] MEDS: ASPirin-EC 81 mg tab PO SCH (09:29)
[2022-06-10] MEDS: TICAGRELOR 90 MG TAB PO SCH ×2 (09:29→21:56)
[2022-06-10] MEDS: PARoxetine 20 MG TAB PO SCH (09:29)
[2022-06-10] MEDS: PANTOPRAZOLE 40 MG/10 ML VIAL INJ IV SCH (09:30)
[2022-06-10] MEDS: ALLOPURINOL 100 MG TAB PO SCH (09:30)
[2022-06-10] MEDS: AMIODARONE HCL 200 MG TAB PO SCH (09:30)
[2022-06-10] MEDS: MUPIROCIN 2% OINT 15gm or 22gm FOR MRSA NARES EACHNOSTRI SCH ×2 (09:30→21:59)
[2022-06-10] MEDS: METOPROLOL TARTRATE 25 MG TAB PO SCH ×2 (09:31→21:58)
[2022-06-10] MEDS: IPRATROPIUM BROM 0.5 MG/2.5ML INH SOL NEB PRN (15:14)
[2022-06-10] MEDS: ALBUTEROL SULF 2.5 MG/0.5ML(0.5%) NEB SOLN NEB PRN (15:14)
[2022-06-10] MEDS: ATORVASTATIN 20 MG TAB PO SCH (18:11)
[2022-06-10] MEDS: MONTELUKAST SODIUM 10 MG TAB PO SCH (21:56)
[2022-06-10] MEDS: GABAPENTIN 300 MG CAP PO SCH (21:56)
[2022-06-10] MEDS: traZODone HCL 50 MG TAB PO SCH (21:57)
[2022-06-10] MEDS: PATIENTS OWN MEDICATION (Fenofibrate 160 MG) PO SCH (21:59)
[2022-06-11] VITALS (8 sets, daily range): BP systolic 100–128; BP diastolic 40–61
[2022-06-11] MEDS: OXYCODONE W/ ACETAMINOPHEN 5/325MG TABLET PO PRN ×2 (04:41→13:59)
[2022-06-11] MEDS: SEVELAMER 800 MG TAB PO SCH ×3 (06:00→23:29)
[2022-06-11] MEDS: CALCIUM ACETATE 667 MG CAP PO SCH ×3 (06:00→23:29)
[2022-06-11] MEDS: SODIUM CHLOR 0.9% PF (SALINE LOCK) 10ML VIAL/SYR IV SCH ×3 (06:36→23:24)
[2022-06-11] MEDS: ACCU-CHEK COMFORT CURVE STRIP VI SCH ×4 (06:36→23:30)
[2022-06-11] MEDS: InsuLIN REG 1unit/0.01ml Soln (100units/ml) SC SCH ×4 (06:36→23:50)
[2022-06-11] MEDS ORDERED: SODIUM CHL 0.9% 1000 ML BAG XX ONE (07:00)
[2022-06-11] MEDS: LORATADINE 10 MG TAB PO SCH (07:55)
[2022-06-11 08:32] LABS: Hematocrit 27.5 % (41.0-53.0)
[2022-06-11 08:35] LABS: Hemoglobin 8.9 g/dL (13.5-17.5)
[2022-06-11] MEDS: PANTOPRAZOLE 40 MG/10 ML VIAL INJ IV SCH (09:38)
[2022-06-11] MEDS: AMIODARONE HCL 200 MG TAB PO SCH (09:39)
[2022-06-11] MEDS: TICAGRELOR 90 MG TAB PO SCH ×2 (09:39→23:24)
[2022-06-11] MEDS: PARoxetine 20 MG TAB PO SCH (09:39)
[2022-06-11] MEDS: ASPirin-EC 81 mg tab PO SCH (09:39)
[2022-06-11] MEDS: ALLOPURINOL 100 MG TAB PO SCH (09:39)
[2022-06-11 09:54] LABS: BUN/Creatinine Ratio 7.2; Calcium 7.9 mg/dL (8.5-10.1); Potassium 4.6 mmol/L (3.5-5.1)
[2022-06-11] MEDS: METOPROLOL TARTRATE 25 MG TAB PO SCH ×2 (10:00→22:00)
[2022-06-11] MEDS: MUPIROCIN 2% OINT 15gm or 22gm FOR MRSA NARES EACHNOSTRI SCH ×2 (10:50→23:23)
[2022-06-11] MEDS: ATORVASTATIN 20 MG TAB PO SCH (17:34)
[2022-06-11] MEDS ORDERED: ALBUMIN 25% 100 ML IV ONE ×2 (20:15)
[2022-06-11] MEDS ORDERED: EPOETIN ALFA-EPBX 10,000 UNIT/1ML VIAL SC ONE (21:00)
[2022-06-11] MEDS: PATIENTS OWN MEDICATION (Fenofibrate 160 MG) PO SCH (22:00)
[2022-06-11] MEDS: traZODone HCL 50 MG TAB PO SCH (23:29)
[2022-06-11] MEDS: GABAPENTIN 300 MG CAP PO SCH (23:29)
[2022-06-11] MEDS: MONTELUKAST SODIUM 10 MG TAB PO SCH (23:30)
[2022-06-12 05:00] VITALS: BP 152/46
[2022-06-12] MEDS: SODIUM CHLOR 0.9% PF (SALINE LOCK) 10ML VIAL/SYR IV SCH ×2 (05:38→14:00)
[2022-06-12] MEDS: ACCU-CHEK COMFORT CURVE STRIP VI SCH ×2 (05:38→17:01)
[2022-06-12] MEDS: CALCIUM ACETATE 667 MG CAP PO SCH ×2 (05:38→14:00)
[2022-06-12] MEDS: SEVELAMER 800 MG TAB PO SCH ×2 (05:38→14:00)
[2022-06-12] MEDS: InsuLIN REG 1unit/0.01ml Soln (100units/ml) SC SCH ×2 (05:39→11:42)
[2022-06-12 06:00] VITALS: BP 146/40
[2022-06-12] MEDS: IPRATROPIUM BROM 0.5 MG/2.5ML INH SOL NEB PRN ×2 (07:55→12:05)
[2022-06-12] MEDS: ALBUTEROL SULF 2.5 MG/0.5ML(0.5%) NEB SOLN NEB PRN ×2 (07:55→12:05)
[2022-06-12] MEDS: LORATADINE 10 MG TAB PO SCH (08:20)
[2022-06-12] MEDS: PANTOPRAZOLE 40 MG/10 ML VIAL INJ IV SCH (08:40)
[2022-06-12] MEDS: ALLOPURINOL 100 MG TAB PO SCH (08:40)
[2022-06-12] MEDS: AMIODARONE HCL 200 MG TAB PO SCH (08:41)
[2022-06-12] MEDS: PARoxetine 20 MG TAB PO SCH (08:41)
[2022-06-12] MEDS: ASPirin-EC 81 mg tab PO SCH (08:41)
[2022-06-12] MEDS: METOPROLOL TARTRATE 25 MG TAB PO SCH (08:41)
[2022-06-12] MEDS: TICAGRELOR 90 MG TAB PO SCH (08:42)
[2022-06-12] MEDS: OXYCODONE W/ ACETAMINOPHEN 5/325MG TABLET PO PRN (08:54)
[2022-06-12 09:00] VITALS: BP 151/38
[2022-06-12] MEDS: MUPIROCIN 2% OINT 15gm or 22gm FOR MRSA NARES EACHNOSTRI SCH (10:00)
[2022-06-12] MEDS ORDERED: ALBU0.084 NEB (10:39)
[2022-06-12 12:37] VITALS: BP 141/39
== END 2022-06-12 17:09 | disposition home health service (06) | DRG 291 ==
LOC: EDBD 14:45 → ER 14:48 → TELE 19:50 → TELE-WESTW 06-08 19:25
PROVIDERS: ADMIT Nurse Practitioner Family; ATTEND Family Medicine
PROC: 5A1D70Z Performance of Urinary Filtration, Intermittent, Less than 6 Hours Per Day (ICD-10-PCS; principal; 2022-06-09)
PROC: 5A1D70Z Performance of Urinary Filtration, Intermittent, Less than 6 Hours Per Day (ICD-10-PCS; 2022-06-11)
DX: I13.2 Hypertensive heart and chronic kidney disease with heart failure and with stage 5 chronic kidney disease, or end stage renal disease (principal); I50.43 Acute on chronic combined systolic (congestive) and diastolic (congestive) heart failure; J18.9 Pneumonia, unspecified organism; N18.6 End stage renal disease; J96.01 Acute respiratory failure with hypoxia; J44.0 Chronic obstructive pulmonary disease with (acute) lower respiratory infection; E11.22 Type 2 diabetes mellitus with diabetic chronic kidney disease; Z99.2 Dependence on renal dialysis; E11.69 Type 2 diabetes mellitus with other specified complication; I25.10 Atherosclerotic heart disease of native coronary artery without angina pectoris; D63.1 Anemia in chronic kidney disease; Z20.822 Contact with and (suspected) exposure to COVID-19; E11.40 Type 2 diabetes mellitus with diabetic neuropathy, unspecified; E11.649 Type 2 diabetes mellitus with hypoglycemia without coma; E78.00 Pure hypercholesterolemia, unspecified; I25.2 Old myocardial infarction; Z79.4 Long term (current) use of insulin; Z82.49 Family history of ischemic heart disease and other diseases of the circulatory system; Z83.3 Family history of diabetes mellitus; Z86.718 Personal history of other venous thrombosis and embolism; Z95.5 Presence of coronary angioplasty implant and graft
CPT/HCPCS: 36415; 71045; 80048; 80053; 82962; 83735; 83880; 84484; 85014; 85018; 85025; 87081; 87426; 90935; 93005; 94640; 96361; 96374; 97163; C9113; G0378; J1100; J1642; J1815; P9047

== ENCOUNTER 2022-06-19 21:19 | Inpatient (IN) | payer MEDICARE, MEDICAID ==
[~2022-06-19] VITALS: Ht 177.8 cm; Wt 119.6 kg
[~2022-06-19 21:19] MED LIST changes: +ALBU0.084 NEB; -BUM1T PO; -COLC0.6T56 PO; -HYDR-4798 PO; -MUPI2OIN2 EACHNOSTRI; -PERCOT PO
[2022-06-19 22:19] LABS: Albumin 2.7 g/dL (3.4-5.0); Calcium 8.6 mg/dL (8.5-10.1); Potassium 5.5 mmol/L (3.5-5.1)
[2022-06-19 22:22] LABS: Basophils # (auto) 0 10 ^3/uL (0-0.2); Basophils % (auto) 0.2 % (0.0-2.0); Eosinophils # (auto) 0.2 10 ^3/uL (0-0.8); Eosinophils % (auto) 2.2 % (0.0-7.0); Hematocrit 26.9 % (41.0-53.0); Hemoglobin 8.9 g/dL (13.5-17.5); Lymphocytes # (auto) 0.8 10 ^3/uL (0.4-5.4); Mean Corpuscular Hemoglobin 33.5 pg (28.0-32.0); Mean Corpuscular Hgb Conc. 33.2 g/dL (32.0-36.0); Mean Corpuscular Volume 100.9 fL (80.0-100.0); Monocytes # (auto) 0.6 10 ^3/uL (0-1.3); Monocytes % (auto) 6.7 % (0.0-12.0); Neutrophils # (auto) 7.5 10 ^3/uL (1.6-8.6); Neutrophils % (auto) 81.9 % (37.0-80.0); Nucleated Red Blood Cells % 0.1 %; Red Blood Cells 2.67 10^6/uL (4.5-5.90); Red Cell Distribution Width 14.4 % (11.8-14.3); White Blood Cell 9.2 10^3/uL (4.4-10.8)
[2022-06-19 22:24] LABS: BUN/Creatinine Ratio 8.1; Total Protein 6.4 g/dL (6.4-8.2)
[2022-06-20] MEDS: traZODone HCL 50 MG TAB PO SCH
[2022-06-20] MEDS ORDERED: SODIUM BICARBONATE 8.4 % INJ 50ML VIAL IV ONE (00:30)
[2022-06-20] MEDS ORDERED: FUROSEMIDE 20 MG/2 ML VIAL IV ONE (00:30)
[2022-06-20] MEDS ORDERED: HYDROmorphone HCL 2 MG/ML VL/or syr IV ONE (01:15)
[2022-06-20] MEDS ORDERED: SODIUM ZIRCONIUM CYCL 10 GM PAK PO ONE (01:30)
[2022-06-20] MEDS ORDERED: NITROGLYCERIN 0.4 MG SL TAB SL PRN (01:30)
[2022-06-20] MEDS ORDERED: MORPHINE SULFATE INJ 2 MG/ml SYRG IV PRN (01:30)
[2022-06-20] MEDS ORDERED: ACETAMINOPHEN 325 MG TAB PO PRN (01:30)
[2022-06-20] MEDS ORDERED: DEXTROSE (50%) 50ML SYRG IV PRN (01:30)
[2022-06-20 01:40] VITALS: BP 109/46
[2022-06-20] MEDS: InsuLIN REG 1unit/0.01ml Soln (100units/ml) SC SCH ×4 (07:00→22:00)
[2022-06-20] MEDS: ACCU-CHEK COMFORT CURVE STRIP VI SCH ×4 (07:10→22:51)
[2022-06-20] MEDS: SEVELAMER 800 MG TAB PO SCH ×4 (08:00→18:30)
[2022-06-20] MEDS ORDERED: AMLO-496 PO (08:35)
[2022-06-20] MEDS ORDERED: B-CO-6 PO (08:35)
[2022-06-20] MEDS ORDERED: BUME2TAB5 PO (08:35)
[2022-06-20] MEDS ORDERED: DOCU100C10 PO (08:35)
[2022-06-20] MEDS ORDERED: OXYC-963 PO (08:35)
[2022-06-20] MEDS: AMIODARONE HCL 200 MG TAB PO SCH (09:08)
[2022-06-20] MEDS: amLODIPine BESYLATE 5 MG TAB PO SCH (09:09)
[2022-06-20 09:45] VITALS: BP_SYST 105; BP_SYST 123; BP_DIAS 44
[2022-06-20] MEDS ORDERED: CLOPIDOGREL BISULFATE 75 MG TAB PO SCH ×2 (10:00)
[2022-06-20] MEDS: PANTOPRAZOLE 40 MG TAB PO SCH (11:01)
[2022-06-20] MEDS ORDERED: INSU100I33 SC (11:47)
[2022-06-20 13:00] VITALS: BP 116/47
[2022-06-20] MEDS: OXYCODONE W/ ACETAMINOPHEN 5/325MG TABLET PO PRN ×2 (13:52→22:59)
[2022-06-20] MEDS ORDERED: ALPRAZolam 0.5 MG TAB PO SCH (14:00)
[2022-06-20] MEDS ORDERED: SODIUM CHL 0.9% 1000 ML BAG XX ONE (14:30)
[2022-06-20] MEDS ORDERED: MIDODRINE HCL 10 MG TAB PO ONE (16:45)
[2022-06-20 17:00] VITALS: BP 98/52
[2022-06-20] MEDS ORDERED: EPOETIN ALFA-EPBX 10,000 UNIT/1ML VIAL SC ONE (18:00)
[2022-06-20] MEDS ORDERED: PATIENTS OWN MEDICATION (Simvastatin 1 TAB) PO SCH (18:00)
[2022-06-20 22:00] VITALS: BP 129/57
[2022-06-20] MEDS: Fenofibrate 160 MG TABLET PO SCH (22:00)
[2022-06-20] MEDS: METOPROLOL TARTRATE 25 MG TAB PO SCH (22:00)
[2022-06-20] MEDS: DOCUSATE SOD 100 MG CAP PO SCH (22:58)
[2022-06-20] MEDS: TICAGRELOR 90 MG TAB PO SCH (22:59)
[2022-06-20] MEDS: GABAPENTIN 300 MG CAP PO SCH (23:00)
[2022-06-20] MEDS: MONTELUKAST SODIUM 10 MG TAB PO SCH (23:00)
[2022-06-20] MEDS: ATORVASTATIN 20 MG TAB PO SCH (23:00)
[2022-06-21 05:00] VITALS: BP 127/62
[2022-06-21] MEDS: OXYCODONE W/ ACETAMINOPHEN 5/325MG TABLET PO PRN ×3 (06:25→22:25)
[2022-06-21] MEDS: ACCU-CHEK COMFORT CURVE STRIP VI SCH ×4 (06:25→22:29)
[2022-06-21] MEDS: InsuLIN REG 1unit/0.01ml Soln (100units/ml) SC SCH ×4 (06:25→22:48)
[2022-06-21 06:26] LABS: Basophils # (auto) 0 10 ^3/uL (0-0.2); Basophils % (auto) 0.3 % (0.0-2.0); Eosinophils # (auto) 0 10 ^3/uL (0-0.8); Eosinophils % (auto) 0.4 % (0.0-7.0); Hematocrit 26.8 % (41.0-53.0); Hemoglobin 8.8 g/dL (13.5-17.5); Lymphocytes # (auto) 0.5 10 ^3/uL (0.4-5.4); Lymphocytes % (auto) 5.7 % (10.0-50.0); Mean Corpuscular Hgb Conc. 32.9 g/dL (32.0-36.0); Mean Corpuscular Volume 100.3 fL (80.0-100.0); Monocytes # (auto) 0.7 10 ^3/uL (0-1.3); Monocytes % (auto) 7.8 % (0.0-12.0); Neutrophils % (auto) 85.8 % (37.0-80.0); Red Blood Cells 2.67 10^6/uL (4.5-5.90); Red Cell Distribution Width 14.5 % (11.8-14.3); White Blood Cell 9.3 10^3/uL (4.4-10.8)
[2022-06-21 06:51] LABS: Potassium 4.6 mmol/L (3.5-5.1)
[2022-06-21 07:14] LABS: Albumin 2.4 g/dL (3.4-5.0); Calcium 8.2 mg/dL (8.5-10.1)
[2022-06-21 07:23] LABS: Bilirubin, Total 1.1 mg/dL (0.2-1.0); Total Protein 5.7 g/dL (6.4-8.2)
[2022-06-21] MEDS ORDERED: SODIUM CHL 0.9% 1000 ML BAG XX ONE (07:30)
[2022-06-21] MEDS ORDERED: CALCIUM CARB 500 MG CHEW TAB PO PRN (07:30)
[2022-06-21] MEDS ORDERED: OMEPRAZOLE 20MG/10ML ORAL SUSP PO SCH (08:00)
[2022-06-21] MEDS: SEVELAMER 800 MG TAB PO SCH ×4 (08:00→18:45)
[2022-06-21 09:00] VITALS: BP 104/43
[2022-06-21] MEDS: amLODIPine BESYLATE 5 MG TAB PO SCH (10:00)
[2022-06-21] MEDS: METOPROLOL TARTRATE 25 MG TAB PO SCH ×2 (10:00→22:00)
[2022-06-21] MEDS ORDERED: PARoxetine 20 MG TAB PO SCH (10:00)
[2022-06-21] MEDS: AMIODARONE HCL 200 MG TAB PO SCH (10:00)
[2022-06-21] MEDS ORDERED: ALBUMIN 25% 100 ML IV ONE ×2 (12:00→13:15)
[2022-06-21] MEDS ORDERED: MIDODRINE HCL 10 MG TAB PO ONE (12:15)
[2022-06-21 13:00] VITALS: BP 113/32
[2022-06-21] MEDS: ASPirin-EC 81 mg tab PO SCH (13:04)
[2022-06-21] MEDS: B-COMPLEX W/ C & FOLIC ACID(NEPHROVITE TAB) PO SCH (13:04)
[2022-06-21] MEDS: TICAGRELOR 90 MG TAB PO SCH ×2 (13:04→22:24)
[2022-06-21] MEDS: ALLOPURINOL 100 MG TAB PO SCH (13:04)
[2022-06-21] MEDS: DOCUSATE SOD 100 MG CAP PO SCH ×2 (13:04→22:24)
[2022-06-21] MEDS: PANTOPRAZOLE 40 MG TAB PO SCH (13:04)
[2022-06-21] MEDS: LORATADINE 10 MG TAB PO SCH (13:05)
[2022-06-21 17:19] VITALS: BP 127/46
[2022-06-21] MEDS ORDERED: LACTULOSE 20Gm/30ML SOLN PO ONE (18:00)
[2022-06-21] MEDS ORDERED: EPOETIN ALFA-EPBX 4,000 UNIT/ML VIAL SC ONE (21:00)
[2022-06-21 22:00] VITALS: BP 138/40
[2022-06-21] MEDS: ATORVASTATIN 20 MG TAB PO SCH (22:24)
[2022-06-21] MEDS: GABAPENTIN 300 MG CAP PO SCH (22:24)
[2022-06-21] MEDS: MONTELUKAST SODIUM 10 MG TAB PO SCH (22:24)
[2022-06-21] MEDS: MUPIROCIN 2% OINT 15gm or 22gm FOR MRSA NARES EACHNOSTRI SCH (22:26)
[2022-06-21] MEDS: Fenofibrate 160 MG TABLET PO SCH (22:27)
[2022-06-22] MEDS: traZODone HCL 50 MG TAB PO SCH ×2 (00:11→22:00)
[2022-06-22 05:00] VITALS: BP 128/50
[2022-06-22] MEDS: InsuLIN REG 1unit/0.01ml Soln (100units/ml) SC SCH ×4 (07:00→21:35)
[2022-06-22] MEDS: ACCU-CHEK COMFORT CURVE STRIP VI SCH ×4 (07:15→21:30)
[2022-06-22] MEDS: SEVELAMER 800 MG TAB PO SCH ×3 (08:19→18:02)
[2022-06-22] MEDS: LORATADINE 10 MG TAB PO SCH (08:19)
[2022-06-22] MEDS: PANTOPRAZOLE 40 MG TAB PO SCH (08:49)
[2022-06-22] MEDS: ALLOPURINOL 100 MG TAB PO SCH (08:49)
[2022-06-22] MEDS: B-COMPLEX W/ C & FOLIC ACID(NEPHROVITE TAB) PO SCH (08:49)
[2022-06-22] MEDS: ASPirin-EC 81 mg tab PO SCH (08:50)
[2022-06-22] MEDS: TICAGRELOR 90 MG TAB PO SCH ×2 (08:50→21:29)
[2022-06-22] MEDS: METOPROLOL TARTRATE 25 MG TAB PO SCH ×2 (08:50→22:00)
[2022-06-22] MEDS: AMIODARONE HCL 200 MG TAB PO SCH (08:50)
[2022-06-22] MEDS: DOCUSATE SOD 100 MG CAP PO SCH ×2 (08:50→21:29)
[2022-06-22] MEDS: amLODIPine BESYLATE 5 MG TAB PO SCH (08:51)
[2022-06-22] MEDS: OXYCODONE W/ ACETAMINOPHEN 5/325MG TABLET PO PRN ×3 (08:51→21:28)
[2022-06-22] MEDS: MUPIROCIN 2% OINT 15gm or 22gm FOR MRSA NARES EACHNOSTRI SCH ×2 (08:52→21:27)
[2022-06-22 09:00] VITALS: BP 118/49
[2022-06-22 13:00] VITALS: BP 114/43
[2022-06-22] MEDS ORDERED: MIDODRINE HCL 10 MG TAB PO ONE (13:30)
[2022-06-22] MEDS ORDERED: ALBUMIN 25% 100 ML IV ONE (13:30)
[2022-06-22 17:00] VITALS: BP 103/41
[2022-06-22] MEDS: Fenofibrate 160 MG TABLET PO SCH (21:28)
[2022-06-22] MEDS: ATORVASTATIN 20 MG TAB PO SCH (21:28)
[2022-06-22] MEDS: GABAPENTIN 300 MG CAP PO SCH (21:28)
[2022-06-22] MEDS: MONTELUKAST SODIUM 10 MG TAB PO SCH (21:29)
[2022-06-22 22:00] VITALS: BP_SYST 131; BP_SYST 171; BP_DIAS 43; BP_DIAS 70
[2022-06-23 00:24] VITALS: BP 131/43
[2022-06-23 05:00] VITALS: BP 127/48
[2022-06-23] MEDS: ACCU-CHEK COMFORT CURVE STRIP VI SCH ×4 (06:41→21:29)
[2022-06-23] MEDS ORDERED: ALBUMIN 25% 100 ML IV ONE ×3 (06:45→16:15)
[2022-06-23] MEDS ORDERED: MIDODRINE HCL 10 MG TAB PO ONE ×2 (06:45→16:00)
[2022-06-23] MEDS: InsuLIN REG 1unit/0.01ml Soln (100units/ml) SC SCH ×4 (06:46→21:31)
[2022-06-23] MEDS: OXYCODONE W/ ACETAMINOPHEN 5/325MG TABLET PO PRN ×3 (06:57→23:13)
[2022-06-23] MEDS ORDERED: SODIUM CHL 0.9% 1000 ML BAG XX ONE (07:00)
[2022-06-23 09:00] VITALS: BP 85/49
[2022-06-23] MEDS: METOPROLOL TARTRATE 25 MG TAB PO SCH ×2 (10:00→21:47)
[2022-06-23] MEDS: LORATADINE 10 MG TAB PO SCH (10:31)
[2022-06-23] MEDS: B-COMPLEX W/ C & FOLIC ACID(NEPHROVITE TAB) PO SCH (10:31)
[2022-06-23] MEDS: ASPirin-EC 81 mg tab PO SCH (10:31)
[2022-06-23] MEDS: SEVELAMER 800 MG TAB PO SCH ×3 (10:31→17:00)
[2022-06-23] MEDS: amLODIPine BESYLATE 5 MG TAB PO SCH (10:35)
[2022-06-23] MEDS: PANTOPRAZOLE 40 MG TAB PO SCH (10:35)
[2022-06-23] MEDS: ALLOPURINOL 100 MG TAB PO SCH (10:35)
[2022-06-23] MEDS: TICAGRELOR 90 MG TAB PO SCH ×2 (10:36→21:27)
[2022-06-23] MEDS: AMIODARONE HCL 200 MG TAB PO SCH (10:36)
[2022-06-23] MEDS: DOCUSATE SOD 100 MG CAP PO SCH ×2 (10:37→21:40)
[2022-06-23] MEDS: MUPIROCIN 2% OINT 15gm or 22gm FOR MRSA NARES EACHNOSTRI SCH ×2 (10:37→21:21)
[2022-06-23 13:00] VITALS: BP 114/57
[2022-06-23] MEDS: ALBUTEROL SULF 2.5 MG/0.5ML(0.5%) NEB SOLN NEB PRN (15:15)
[2022-06-23 17:00] VITALS: BP 113/45
[2022-06-23] MEDS ORDERED: EPOETIN ALFA-EPBX 4,000 UNIT/ML VIAL SC ONE (21:00)
[2022-06-23] MEDS: Fenofibrate 160 MG TABLET PO SCH (21:26)
[2022-06-23] MEDS: ATORVASTATIN 20 MG TAB PO SCH (21:27)
[2022-06-23] MEDS: MONTELUKAST SODIUM 10 MG TAB PO SCH (21:27)
[2022-06-23] MEDS: traZODone HCL 50 MG TAB PO SCH (21:27)
[2022-06-23] MEDS: GABAPENTIN 300 MG CAP PO SCH (21:27)
[2022-06-23 22:00] VITALS: BP 131/37
[2022-06-24 05:00] VITALS: BP 128/63
[2022-06-24] MEDS: InsuLIN REG 1unit/0.01ml Soln (100units/ml) SC SCH ×4 (06:05→22:05)
[2022-06-24] MEDS: ACCU-CHEK COMFORT CURVE STRIP VI SCH ×4 (06:06→21:57)
[2022-06-24] MEDS ORDERED: SODIUM CHL 0.9% 1000 ML BAG XX ONE (07:00)
[2022-06-24 08:38] VITALS: BP 123/44
[2022-06-24 08:51] LABS: Carcinoembryonic Antigen 5.39 ng/mL (<5.0 OR =)
[2022-06-24 08:52] LABS: Folate (Folic Acid) 11.78 ng/mL (5.38-24)
[2022-06-24 09:16] LABS: Hepatitis B Surface Antibody Negative (Negative)
[2022-06-24] MEDS: B-COMPLEX W/ C & FOLIC ACID(NEPHROVITE TAB) PO SCH (09:17)
[2022-06-24] MEDS: ASPirin-EC 81 mg tab PO SCH (09:17)
[2022-06-24] MEDS: SEVELAMER 800 MG TAB PO SCH ×3 (09:18→18:00)
[2022-06-24] MEDS: TICAGRELOR 90 MG TAB PO SCH ×2 (09:19→21:50)
[2022-06-24] MEDS: AMIODARONE HCL 200 MG TAB PO SCH (09:19)
[2022-06-24] MEDS: MUPIROCIN 2% OINT 15gm or 22gm FOR MRSA NARES EACHNOSTRI SCH ×2 (09:20→21:58)
[2022-06-24] MEDS: LORATADINE 10 MG TAB PO SCH (09:20)
[2022-06-24] MEDS: ALLOPURINOL 100 MG TAB PO SCH (09:20)
[2022-06-24] MEDS: PANTOPRAZOLE 40 MG TAB PO SCH (09:20)
[2022-06-24] MEDS: METOPROLOL TARTRATE 25 MG TAB PO SCH ×2 (09:30→21:51)
[2022-06-24] MEDS: amLODIPine BESYLATE 5 MG TAB PO SCH (09:30)
[2022-06-24] MEDS: DOCUSATE SOD 100 MG CAP PO SCH ×2 (09:31→22:00)
[2022-06-24] MEDS: OXYCODONE W/ ACETAMINOPHEN 5/325MG TABLET PO PRN ×2 (10:05→21:53)
[2022-06-24 12:53] VITALS: BP 109/42
[2022-06-24 13:59] LABS: Hepatitis C Antibody Negative (Negative)
[2022-06-24 14:00] LABS: Hepatitis C Antibody Negative (Negative)
[2022-06-24] MEDS: ALBUTEROL SULF 2.5 MG/0.5ML(0.5%) NEB SOLN NEB PRN ×2 (14:05→22:16)
[2022-06-24] MEDS ORDERED: ALBUMIN 25% 100 ML IV ONE ×4 (17:30→18:00)
[2022-06-24 17:41] VITALS: BP 107/34
[2022-06-24] MEDS ORDERED: EPOETIN ALFA-EPBX 4,000 UNIT/ML VIAL SC ONE (21:00)
[2022-06-24] MEDS: traZODone HCL 50 MG TAB PO SCH (21:49)
[2022-06-24] MEDS: GABAPENTIN 300 MG CAP PO SCH (21:49)
[2022-06-24] MEDS: ATORVASTATIN 20 MG TAB PO SCH (21:50)
[2022-06-24] MEDS: ONDANSETRON HCL 4 MG/2 ML VIAL IV PRN (21:52)
[2022-06-24] MEDS: MONTELUKAST SODIUM 10 MG TAB PO SCH (21:53)
[2022-06-24] MEDS: Fenofibrate 160 MG TABLET PO SCH (21:57)
[2022-06-24 22:00] VITALS: BP 112/59
[2022-06-25 05:00] VITALS: BP 103/38
[2022-06-25] MEDS: OXYCODONE W/ ACETAMINOPHEN 5/325MG TABLET PO PRN ×3 (05:40→17:30)
[2022-06-25] MEDS: InsuLIN REG 1unit/0.01ml Soln (100units/ml) SC SCH ×2 (06:08→12:10)
[2022-06-25] MEDS: ACCU-CHEK COMFORT CURVE STRIP VI SCH ×2 (06:08→12:07)
[2022-06-25 09:27] VITALS: BP 128/45
[2022-06-25] MEDS ORDERED: SODIUM CHL 0.9% 1000 ML BAG XX ONE (09:30)
[2022-06-25] MEDS: AMIODARONE HCL 200 MG TAB PO SCH (10:00)
[2022-06-25] MEDS: DOCUSATE SOD 100 MG CAP PO SCH (10:00)
[2022-06-25] MEDS: amLODIPine BESYLATE 5 MG TAB PO SCH (10:00)
[2022-06-25] MEDS: METOPROLOL TARTRATE 25 MG TAB PO SCH (10:01)
[2022-06-25] MEDS: ALLOPURINOL 100 MG TAB PO SCH (10:02)
[2022-06-25] MEDS: SEVELAMER 800 MG TAB PO SCH ×2 (10:02→12:07)
[2022-06-25] MEDS: PANTOPRAZOLE 40 MG TAB PO SCH (10:02)
[2022-06-25] MEDS: LORATADINE 10 MG TAB PO SCH (10:02)
[2022-06-25] MEDS: ASPirin-EC 81 mg tab PO SCH (10:02)
[2022-06-25] MEDS: TICAGRELOR 90 MG TAB PO SCH (10:06)
[2022-06-25] MEDS: B-COMPLEX W/ C & FOLIC ACID(NEPHROVITE TAB) PO SCH (10:06)
[2022-06-25] MEDS: MUPIROCIN 2% OINT 15gm or 22gm FOR MRSA NARES EACHNOSTRI SCH (10:07)
[2022-06-25 10:38] LABS: Albumin 3.1 g/dL (3.4-5.0); BUN/Creatinine Ratio 4.9 (10.0-20.0); Calcium 8.4 mg/dL (8.5-10.1); Potassium 3.5 mmol/L (3.5-5.1)
[2022-06-25 10:41] LABS: Bilirubin, Total 1.3 mg/dL (0.2-1.0); Total Protein 6.1 g/dL (6.4-8.2)
[2022-06-25] MEDS: ONDANSETRON HCL 4 MG/2 ML VIAL IV PRN (11:32)
[2022-06-25 12:56] VITALS: BP 131/42
[2022-06-25 14:09] LABS: Basophils # (auto) 0 10 ^3/uL (0-0.2); Eosinophils # (auto) 0.1 10 ^3/uL (0-0.8); Monocytes # (auto) 0.5 10 ^3/uL (0-1.3); White Blood Cell 5.9 10^3/uL (4.4-10.8)
[2022-06-25 14:12] LABS: Basophils % (auto) 0.3 % (0.0-2.0); Eosinophils % (auto) 1.2 % (0.0-7.0); Hematocrit 22.3 % (41.0-53.0); Hemoglobin 7.3 g/dL (13.5-17.5); Lymphocytes # (auto) 0.5 10 ^3/uL (0.4-5.4); Lymphocytes % (auto) 9.1 % (10.0-50.0); Mean Corpuscular Hemoglobin 32.7 pg (28.0-32.0); Mean Corpuscular Hgb Conc. 32.6 g/dL (32.0-36.0); Mean Corpuscular Volume 100.2 fL (80.0-100.0); Monocytes % (auto) 8.3 % (0.0-12.0); Neutrophils # (auto) 4.8 10 ^3/uL (1.6-8.6); Neutrophils % (auto) 81.1 % (37.0-80.0); Red Blood Cells 2.23 10^6/uL (4.5-5.90); Red Cell Distribution Width 14.3 % (11.8-14.3)
[2022-06-25] MEDS ORDERED: ALBUMIN 25% 100 ML IV SCH (15:00)
[2022-06-25] MEDS ORDERED: ALBUMIN 25% 100 ML IV ONE ×2 (15:00→16:00)
[2022-06-25 17:18] VITALS: BP 133/65
== END 2022-06-25 17:23 | DRG 291 ==
LOC: ER 21:19 → EDBD 21:19 → EDUNIT# 21:19 → TELE 06-20 01:28 → TELE-EAST 06-20 08:32
PROVIDERS: ADMIT Nurse Practitioner; ATTEND Family Medicine
PROC: 5A1D70Z Performance of Urinary Filtration, Intermittent, Less than 6 Hours Per Day (ICD-10-PCS; principal; 2022-06-20)
PROC: 5A1D70Z Performance of Urinary Filtration, Intermittent, Less than 6 Hours Per Day (ICD-10-PCS; 2022-06-21)
PROC: 5A1D70Z Performance of Urinary Filtration, Intermittent, Less than 6 Hours Per Day (ICD-10-PCS; 2022-06-23)
PROC: 5A1D70Z Performance of Urinary Filtration, Intermittent, Less than 6 Hours Per Day (ICD-10-PCS; 2022-06-24)
PROC: 5A1D70Z Performance of Urinary Filtration, Intermittent, Less than 6 Hours Per Day (ICD-10-PCS; 2022-06-25)
DX: I13.2 Hypertensive heart and chronic kidney disease with heart failure and with stage 5 chronic kidney disease, or end stage renal disease (principal); E43 Unspecified severe protein-calorie malnutrition; J96.01 Acute respiratory failure with hypoxia; N18.6 End stage renal disease; I50.33 Acute on chronic diastolic (congestive) heart failure; J98.11 Atelectasis; E87.20 Acidosis, unspecified; E11.22 Type 2 diabetes mellitus with diabetic chronic kidney disease; E66.9 Obesity, unspecified; E87.5 Hyperkalemia; J45.909 Unspecified asthma, uncomplicated; D63.1 Anemia in chronic kidney disease; E83.39 Other disorders of phosphorus metabolism; D53.9 Nutritional anemia, unspecified; R79.89 Other specified abnormal findings of blood chemistry; K59.03 Drug induced constipation; B95.62 Methicillin resistant Staphylococcus aureus infection as the cause of diseases classified elsewhere; Z20.822 Contact with and (suspected) exposure to COVID-19; T40.605A Adverse effect of unspecified narcotics, initial encounter; E78.00 Pure hypercholesterolemia, unspecified; F32.A Depression, unspecified; F41.9 Anxiety disorder, unspecified; M10.9 Gout, unspecified; Z88.0 Allergy status to penicillin; Z99.2 Dependence on renal dialysis; Z74.01 Bed confinement status; Z82.49 Family history of ischemic heart disease and other diseases of the circulatory system; Z83.3 Family history of diabetes mellitus; Z88.1 Allergy status to other antibiotic agents; Y92.89 Other specified places as the place of occurrence of the external cause; Z68.37 Body mass index [BMI] 37.0-37.9, adult
CPT/HCPCS: 36415; 70450; 71045; 71250; 74176; 80053; 82378; 82607; 82746; 82962; 83880; 84443; 84484; 85025; 86706; 86803; 87081; 87340; 87426; 90935; 93005; 93306; 94640; 96374; 96375; G0378; J1642; J1815; J2405; P9047

== ENCOUNTER 2022-07-08 19:10 | Inpatient (IN) | payer MEDICARE, MEDICAID ==
[~2022-07-08] VITALS: Ht 177.8 cm; Wt 107.0 kg
[~2022-07-08 19:10] MED LIST changes: +AMLO-496 PO; +B-CO-6 PO; -B-COTAB94 OR; +DOCU100C10 PO; +OXYC-963 PO
[2022-07-08 20:21] LABS: Basophils # (auto) 0 10 ^3/uL (0-0.2); Basophils % (auto) 0.6 % (0.0-2.0); Eosinophils # (auto) 0.2 10 ^3/uL (0-0.8); Eosinophils % (auto) 2.6 % (0.0-7.0); Hematocrit 29.4 % (41.0-53.0); Hemoglobin 9.7 g/dL (13.5-17.5); Lymphocytes % (auto) 14.1 % (10.0-50.0); Mean Corpuscular Hemoglobin 33.1 pg (28.0-32.0); Mean Corpuscular Volume 100.2 fL (80.0-100.0); Monocytes # (auto) 0.7 10 ^3/uL (0-1.3); Monocytes % (auto) 9.5 % (0.0-12.0); Neutrophils # (auto) 5.4 10 ^3/uL (1.6-8.6); Neutrophils % (auto) 73.2 % (37.0-80.0); Red Blood Cells 2.94 10^6/uL (4.5-5.90); Red Cell Distribution Width 15.9 % (11.8-14.3); White Blood Cell 7.4 10^3/uL (4.4-10.8)
[2022-07-08 20:41] LABS: Albumin 2.6 g/dL (3.4-5.0); Calcium 8.7 mg/dL (8.5-10.1); Potassium 4.2 mmol/L (3.5-5.1)
[2022-07-08 20:43] LABS: BUN/Creatinine Ratio 4.3 (10.0-20.0)
[2022-07-08 20:55] LABS: Bilirubin, Total 1.5 mg/dL (0.2-1.0); Total Protein 6.2 g/dL (6.4-8.2)
[2022-07-08] MEDS ORDERED: PANTOPRAZOLE 40 MG/10 ML VIAL INJ IV ONE (21:15)
[2022-07-08] MEDS ORDERED: ACETAMINOPHEN 325 MG TAB PO PRN (21:15)
[2022-07-08] MEDS ORDERED: VANCOMYCIN PER PHARMACY 0 MG IV SCH (21:15)
[2022-07-08] MEDS ORDERED: DEXTROSE (50%) 50ML SYRG IV PRN (21:30)
[2022-07-08] MEDS ORDERED: ERGOCALCIFEROL 50,000 UNIT(1.25MG) CAP PO SCH (21:30)
[2022-07-08] MEDS ORDERED: HEPARIN SODIUM (PORCINE) 5000 UNITS/ML 1ML VIAL SC SCH (22:00)
[2022-07-08] MEDS ORDERED: PIPERACILLIN-TAZOB 2.25GM 50 ML IV SCH (22:00)
[2022-07-08 22:32] LABS: Cholesterol 52 mg/dL (< 200)
[2022-07-08 22:35] LABS: HDL Cholesterol 24 mg/dL (40-59); LDL Cholesterol 26 mg/dL (< 100); Triglycerides 104 mg/dL (< 150)
[2022-07-08] MEDS ORDERED: VANCOMYCIN 1GM/250ML 250 ML IV ONE (22:45)
[2022-07-08] MEDS ORDERED: ATORVASTATIN 20 MG TAB PO SCH (22:54)
[2022-07-08] MEDS: MONTELUKAST SODIUM 10 MG TAB PO SCH (23:15)
[2022-07-08] MEDS: ACCU-CHEK COMFORT CURVE STRIP VI SCH (23:15)
[2022-07-08] MEDS: GABAPENTIN 300 MG CAP PO SCH (23:16)
[2022-07-08] MEDS: CALCIUM ACETATE 667 MG CAP PO SCH (23:16)
[2022-07-08] MEDS: METOPROLOL TARTRATE 25 MG TAB PO SCH (23:16)
[2022-07-08] MEDS: TICAGRELOR 90 MG TAB PO SCH (23:16)
[2022-07-08] MEDS: InsuLIN REG 1unit/0.01ml Soln (100units/ml) SC SCH (23:29)
[2022-07-09] VITALS (7 sets, daily range): BP systolic 82–110; BP diastolic 31–50
[2022-07-09] MEDS ORDERED: PAR20T PO (01:36)
[2022-07-09] MEDS ORDERED: ONDA-144 PO (01:39)
[2022-07-09] MEDS: InsuLIN REG 1unit/0.01ml Soln (100units/ml) SC SCH ×4 (06:14→21:49)
[2022-07-09] MEDS: ACCU-CHEK COMFORT CURVE STRIP VI SCH ×4 (06:14→21:49)
[2022-07-09] MEDS: CALCIUM ACETATE 667 MG CAP PO SCH ×3 (06:36→21:41)
[2022-07-09 06:50] LABS: Potassium 4.1 mmol/L (3.5-5.1)
[2022-07-09 06:58] LABS: Albumin 2.2 g/dL (3.4-5.0); BUN/Creatinine Ratio 4.3 (10.0-20.0); Bilirubin, Total 1.2 mg/dL (0.2-1.0); Calcium 8.2 mg/dL (8.5-10.1); Total Protein 5.5 g/dL (6.4-8.2)
[2022-07-09 07:09] LABS: Basophils # (auto) 0.1 10 ^3/uL (0-0.2); Basophils % (auto) 1.5 % (0.0-2.0); Eosinophils # (auto) 0.2 10 ^3/uL (0-0.8); Hematocrit 25.6 % (41.0-53.0); Hemoglobin 8.7 g/dL (13.5-17.5); Lymphocytes # (auto) 1.1 10 ^3/uL (0.4-5.4); Lymphocytes % (auto) 15.5 % (10.0-50.0); Mean Corpuscular Hemoglobin 33.6 pg (28.0-32.0); Mean Corpuscular Hgb Conc. 33.9 g/dL (32.0-36.0); Mean Corpuscular Volume 99.1 fL (80.0-100.0); Monocytes # (auto) 0.9 10 ^3/uL (0-1.3); Monocytes % (auto) 12.9 % (0.0-12.0); Neutrophils # (auto) 4.6 10 ^3/uL (1.6-8.6); Neutrophils % (auto) 67.1 % (37.0-80.0); Red Blood Cells 2.59 10^6/uL (4.5-5.90); Red Cell Distribution Width 15.9 % (11.8-14.3); White Blood Cell 6.9 10^3/uL (4.4-10.8)
[2022-07-09] MEDS: SEVELAMER 800 MG TAB PO SCH ×3 (09:15→18:29)
[2022-07-09] MEDS: TICAGRELOR 90 MG TAB PO SCH ×2 (09:15→21:42)
[2022-07-09] MEDS: ASPirin-EC 81 mg tab PO SCH (09:16)
[2022-07-09] MEDS: AMIODARONE HCL 200 MG TAB PO SCH (09:16)
[2022-07-09] MEDS: METOPROLOL TARTRATE 25 MG TAB PO SCH ×2 (09:16→21:42)
[2022-07-09] MEDS: amLODIPine BESYLATE 5 MG TAB PO SCH (09:17)
[2022-07-09] MEDS: B-COMPLEX W/ C & FOLIC ACID(NEPHROVITE TAB) PO SCH (09:17)
[2022-07-09] MEDS: ALLOPURINOL 100 MG TAB PO SCH (09:18)
[2022-07-09] MEDS: PARoxetine 20 MG TAB PO SCH (09:18)
[2022-07-09] MEDS ORDERED: PANTOPRAZOLE 40 MG/10 ML VIAL INJ IV SCH (10:00)
[2022-07-09] MEDS ORDERED: SODIUM CHLORIDE 0.9% 500 ML IV ONE (11:00)
[2022-07-09] MEDS ORDERED: SODIUM CHL 0.9% 1000 ML BAG XX ONE (12:30)
[2022-07-09] MEDS ORDERED: MIDODRINE HCL 10 MG TAB PO PRN (14:00)
[2022-07-09] MEDS ORDERED: ALBUMIN 25% 50 ML IV PRN (14:00)
[2022-07-09] MEDS ORDERED: EPOETIN ALFA-EPBX 10,000 UNIT/1ML VIAL SC ONE (21:00)
[2022-07-09] MEDS: GABAPENTIN 300 MG CAP PO SCH (21:41)
[2022-07-09] MEDS: PRAVASTATIN SODIUM 20 MG TAB PO SCH (21:41)
[2022-07-09] MEDS: MONTELUKAST SODIUM 10 MG TAB PO SCH (21:42)
[2022-07-09] MEDS: MUPIROCIN 2% OINT 15gm or 22gm FOR MRSA NARES EACHNOSTRI SCH (21:42)
[2022-07-09] MEDS: Fenofibrate 160 MG TAB PO SCH (21:50)
[2022-07-10 01:26] LABS: INR 1.2 (0.9-1.15); Partial Thromboplastin Time 37.6 sec (24.6-33.4)
[2022-07-10 05:00] VITALS: BP 103/43
[2022-07-10] MEDS: CALCIUM ACETATE 667 MG CAP PO SCH ×3 (05:30→22:28)
[2022-07-10] MEDS: InsuLIN REG 1unit/0.01ml Soln (100units/ml) SC SCH ×4 (06:03→22:00)
[2022-07-10] MEDS: ACCU-CHEK COMFORT CURVE STRIP VI SCH ×4 (06:03→22:31)
[2022-07-10] MEDS: SEVELAMER 800 MG TAB PO SCH ×3 (08:00→18:00)
[2022-07-10 09:00] VITALS: BP 113/64
[2022-07-10] MEDS: MUPIROCIN 2% OINT 15gm or 22gm FOR MRSA NARES EACHNOSTRI SCH ×2 (09:42→22:00)
[2022-07-10] MEDS: TICAGRELOR 90 MG TAB PO SCH ×2 (09:47→22:28)
[2022-07-10] MEDS: AMIODARONE HCL 200 MG TAB PO SCH (09:48)
[2022-07-10] MEDS: METOPROLOL TARTRATE 25 MG TAB PO SCH ×2 (09:49→22:00)
[2022-07-10] MEDS: PARoxetine 20 MG TAB PO SCH (09:49)
[2022-07-10] MEDS: ALLOPURINOL 100 MG TAB PO SCH (09:49)
[2022-07-10] MEDS: CEFTRIAXONE SODIUM 2 GM in D5W 5% 100 ML IV SCH (09:54)
[2022-07-10] MEDS: amLODIPine BESYLATE 5 MG TAB PO SCH (10:00)
[2022-07-10] MEDS: B-COMPLEX W/ C & FOLIC ACID(NEPHROVITE TAB) PO SCH (10:00)
[2022-07-10] MEDS: ASPirin-EC 81 mg tab PO SCH (10:00)
[2022-07-10] MEDS ORDERED: VANCOMYCIN 1GM/250ML 250 ML IV ONE (10:00)
[2022-07-10] MEDS ORDERED: BUPIVACAINE HCL 50 ML ONE (10:08)
[2022-07-10] MEDS ORDERED: LIDOCAINE 1%-Mpf/Epinephrine 1:200,000 ONE (10:10)
[2022-07-10] MEDS ORDERED: LIDOCAINE 1% (LOCAL ANESTH.) PF 5ml SDV ONE (10:13)
[2022-07-10] MEDS ORDERED: DAKINS HALF STR 0.25% (NaHypochlorite) 473 ML TOPICAL SOL TOP ONE (10:30)
[2022-07-10] MEDS ORDERED: MORPHINE SULFATE INJ 2 MG/ml SYRG IV PRN ×2 (11:15→12:30)
[2022-07-10] MEDS ORDERED: PROPOFOL 10 MG/ML 20 ML IV ONE (12:07)
[2022-07-10] MEDS ORDERED: KETAMINE HCL 10 ML ONE (12:07)
[2022-07-10] MEDS ORDERED: fentaNYL CITRATE 100 MCG/2 ML VL ONE (12:07)
[2022-07-10] MEDS ORDERED: ONDANSETRON HCL 4 MG/2 ML VIAL ONE (12:07)
[2022-07-10] MEDS ORDERED: MIDAZOLAM HCL 2MG/2ML 2ml VIAL (1mg/ml) ONE (12:07)
[2022-07-10] MEDS ORDERED: SODIUM CHLORIDE LOCK 10 ML ONE (12:07)
[2022-07-10] MEDS ORDERED: HYDROmorphone HCL 2 MG/ML VL/or syr IV PRN ×2 (12:30)
[2022-07-10] MEDS ORDERED: METOCLOPRAMIDE HCL 5MG/ml INJ 2ml VIAL IV PRN (12:30)
[2022-07-10] MEDS ORDERED: ACCU-CHEK COMFORT CURVE STRIP VI ONE (12:30)
[2022-07-10] MEDS: HYDROcodone-ACET 10/325MG TAB PO PRN (14:42)
[2022-07-10 15:45] VITALS: BP 80/48
[2022-07-10] MEDS ORDERED: SODIUM CHLORIDE 0.9% 1,000 ML IV ONE (16:15)
[2022-07-10 16:30] VITALS: BP 92/34
[2022-07-10] MEDS ORDERED: ALBUMIN 25% 50 ML IV ONE ×3 (18:00→21:15)
[2022-07-10 18:15] VITALS: BP 102/33
[2022-07-10 22:00] VITALS: BP 98/35
[2022-07-10] MEDS: Fenofibrate 160 MG TAB PO SCH (22:00)
[2022-07-10] MEDS: MONTELUKAST SODIUM 10 MG TAB PO SCH (22:28)
[2022-07-10] MEDS: GABAPENTIN 300 MG CAP PO SCH (22:28)
[2022-07-10] MEDS: PRAVASTATIN SODIUM 20 MG TAB PO SCH (22:28)
[2022-07-11] MEDS: HYDROcodone-ACET 10/325MG TAB PO PRN ×4 (00:40→22:42)
[2022-07-11 05:00] VITALS: BP 108/33
[2022-07-11] MEDS: ACCU-CHEK COMFORT CURVE STRIP VI SCH ×4 (06:42→22:43)
[2022-07-11] MEDS: InsuLIN REG 1unit/0.01ml Soln (100units/ml) SC SCH ×4 (06:42→22:00)
[2022-07-11] MEDS ORDERED: SODIUM CHL 0.9% 1000 ML BAG XX ONE (07:00)
[2022-07-11] MEDS: CALCIUM ACETATE 667 MG CAP PO SCH ×3 (07:02→22:42)
[2022-07-11] MEDS: SEVELAMER 800 MG TAB PO SCH ×3 (08:00→18:16)
[2022-07-11 08:59] VITALS: BP 106/31
[2022-07-11] MEDS: ALLOPURINOL 100 MG TAB PO SCH (09:35)
[2022-07-11] MEDS: TICAGRELOR 90 MG TAB PO SCH ×2 (09:35→22:42)
[2022-07-11] MEDS: ASPirin-EC 81 mg tab PO SCH (09:35)
[2022-07-11] MEDS: B-COMPLEX W/ C & FOLIC ACID(NEPHROVITE TAB) PO SCH (09:35)
[2022-07-11] MEDS: PARoxetine 20 MG TAB PO SCH (09:35)
[2022-07-11] MEDS: amLODIPine BESYLATE 5 MG TAB PO SCH (09:38)
[2022-07-11] MEDS: METOPROLOL TARTRATE 25 MG TAB PO SCH ×2 (09:38→22:00)
[2022-07-11] MEDS: AMIODARONE HCL 200 MG TAB PO SCH (09:39)
[2022-07-11] MEDS ORDERED: MUPIROCIN 2% OINT 15gm or 22gm FOR MRSA NARES EACHNOSTRI SCH (10:00)
[2022-07-11] MEDS: CEFTRIAXONE SODIUM 2 GM in D5W 5% 100 ML IV SCH (10:35)
[2022-07-11] MEDS: MUPIROCIN 2% OINT 15gm or 22gm FOR MRSA NARES EACHNOSTRI SCH ×2 (10:35→22:40)
[2022-07-11 14:06] VITALS: BP 102/48
[2022-07-11] MEDS ORDERED: ONDANSETRON HCL 4 MG/2 ML VIAL IV PRN (15:15)
[2022-07-11] MEDS: ONDANSETRON HCL 4 MG/2 ML VIAL IV PRN (15:49)
[2022-07-11 17:00] VITALS: BP 125/64
[2022-07-11] MEDS: MIDODRINE HCL 10 MG TAB PO PRN (19:36)
[2022-07-11] MEDS: ALBUMIN 25% 50 ML IV PRN (19:36)
[2022-07-11] MEDS ORDERED: EPOETIN ALFA-EPBX 10,000 UNIT/1ML VIAL SC ONE (21:00)
[2022-07-11 22:00] VITALS: BP 105/31
[2022-07-11] MEDS: Fenofibrate 160 MG TAB PO SCH (22:00)
[2022-07-11] MEDS: PRAVASTATIN SODIUM 20 MG TAB PO SCH (22:41)
[2022-07-11] MEDS: MONTELUKAST SODIUM 10 MG TAB PO SCH (22:42)
[2022-07-11] MEDS: GABAPENTIN 300 MG CAP PO SCH (22:42)
[2022-07-11] MEDS ORDERED: VANCOMYCIN 1GM/250ML 250 ML IV ONE (23:00)
[2022-07-12 05:00] VITALS: BP 106/39
[2022-07-12] MEDS: HYDROcodone-ACET 10/325MG TAB PO PRN ×3 (05:07→22:07)
[2022-07-12] MEDS: CALCIUM ACETATE 667 MG CAP PO SCH ×3 (06:28→22:07)
[2022-07-12] MEDS: ACCU-CHEK COMFORT CURVE STRIP VI SCH ×4 (06:28→22:08)
[2022-07-12] MEDS: InsuLIN REG 1unit/0.01ml Soln (100units/ml) SC SCH ×4 (06:29→22:00)
[2022-07-12 09:00] VITALS: BP 109/35
[2022-07-12] MEDS: ASPirin-EC 81 mg tab PO SCH (09:33)
[2022-07-12] MEDS: B-COMPLEX W/ C & FOLIC ACID(NEPHROVITE TAB) PO SCH (09:33)
[2022-07-12] MEDS: METOPROLOL TARTRATE 25 MG TAB PO SCH ×2 (09:37→22:00)
[2022-07-12] MEDS: amLODIPine BESYLATE 5 MG TAB PO SCH (09:38)
[2022-07-12] MEDS: AMIODARONE HCL 200 MG TAB PO SCH (09:38)
[2022-07-12] MEDS: ALLOPURINOL 100 MG TAB PO SCH (09:38)
[2022-07-12] MEDS: SEVELAMER 800 MG TAB PO SCH ×3 (09:38→18:23)
[2022-07-12] MEDS: PARoxetine 20 MG TAB PO SCH (09:39)
[2022-07-12] MEDS: TICAGRELOR 90 MG TAB PO SCH ×2 (09:41→22:07)
[2022-07-12] MEDS: CEFTRIAXONE SODIUM 2 GM in D5W 5% 100 ML IV SCH (09:42)
[2022-07-12] MEDS: MUPIROCIN 2% OINT 15gm or 22gm FOR MRSA NARES EACHNOSTRI SCH ×2 (09:43→22:11)
[2022-07-12 13:05] VITALS: BP 122/29
[2022-07-12 17:00] VITALS: BP 106/34
[2022-07-12 22:00] VITALS: BP 113/40
[2022-07-12] MEDS: Fenofibrate 160 MG TAB PO SCH (22:00)
[2022-07-12] MEDS: GABAPENTIN 300 MG CAP PO SCH (22:07)
[2022-07-12] MEDS: MONTELUKAST SODIUM 10 MG TAB PO SCH (22:07)
[2022-07-12] MEDS: PRAVASTATIN SODIUM 20 MG TAB PO SCH (22:08)
[2022-07-13] MEDS: HYDROcodone-ACET 10/325MG TAB PO PRN ×3 (03:38→18:04)
[2022-07-13 05:00] VITALS: BP 103/41
[2022-07-13] MEDS: ACCU-CHEK COMFORT CURVE STRIP VI SCH ×4 (05:43→21:41)
[2022-07-13] MEDS: CALCIUM ACETATE 667 MG CAP PO SCH ×3 (05:45→22:19)
[2022-07-13] MEDS: InsuLIN REG 1unit/0.01ml Soln (100units/ml) SC SCH ×4 (05:45→21:41)
[2022-07-13 07:33] VITALS: BP 100/38
[2022-07-13] MEDS: MIDODRINE HCL 10 MG TAB PO PRN (07:35)
[2022-07-13] MEDS: ALBUMIN 25% 50 ML IV PRN (07:38)
[2022-07-13 08:00] VITALS: BP 100/38
[2022-07-13 09:17] LABS: BUN/Creatinine Ratio 4.1 (10.0-20.0); Calcium 7.8 mg/dL (8.5-10.1); Potassium 3.6 mmol/L (3.5-5.1)
[2022-07-13] MEDS: METOPROLOL TARTRATE 25 MG TAB PO SCH ×2 (10:00→21:41)
[2022-07-13] MEDS: amLODIPine BESYLATE 5 MG TAB PO SCH (10:00)
[2022-07-13] MEDS: SEVELAMER 800 MG TAB PO SCH ×3 (10:59→18:00)
[2022-07-13] MEDS: TICAGRELOR 90 MG TAB PO SCH ×2 (11:00→22:20)
[2022-07-13] MEDS: PARoxetine 20 MG TAB PO SCH (11:00)
[2022-07-13] MEDS: ALLOPURINOL 100 MG TAB PO SCH (11:00)
[2022-07-13] MEDS: ASPirin-EC 81 mg tab PO SCH (11:00)
[2022-07-13] MEDS: B-COMPLEX W/ C & FOLIC ACID(NEPHROVITE TAB) PO SCH (11:00)
[2022-07-13] MEDS: CEFTRIAXONE SODIUM 2 GM in D5W 5% 100 ML IV SCH (11:01)
[2022-07-13] MEDS: LINEZOLID 600MG/300ML 300 ML IV SCH ×2 (11:07→22:20)
[2022-07-13] MEDS: AMIODARONE HCL 200 MG TAB PO SCH (11:08)
[2022-07-13] MEDS: MUPIROCIN 2% OINT 15gm or 22gm FOR MRSA NARES EACHNOSTRI SCH ×2 (11:13→22:35)
[2022-07-13 12:00] VITALS: BP 84/29
[2022-07-13] MEDS: ONDANSETRON HCL 4 MG/2 ML VIAL IV PRN ×2 (14:24→22:20)
[2022-07-13] MEDS ORDERED: LIDOCAINE 1% (LOCAL ANESTH.) PF 5ml SDV ID ONE (15:15)
[2022-07-13 16:00] VITALS: BP 105/42
[2022-07-13] MEDS ORDERED: EPOETIN ALFA-EPBX 10,000 UNIT/1ML VIAL SC ONE (21:00)
[2022-07-13 22:00] VITALS: BP 100/26
[2022-07-13] MEDS: Fenofibrate 160 MG TAB PO SCH (22:00)
[2022-07-13] MEDS: SODIUM CHLOR 0.9% PF (SALINE LOCK) 10ML VIAL/SYR IV SCH (22:20)
[2022-07-13] MEDS: GABAPENTIN 300 MG CAP PO SCH (22:20)
[2022-07-13] MEDS: PRAVASTATIN SODIUM 20 MG TAB PO SCH (22:20)
[2022-07-13] MEDS: MONTELUKAST SODIUM 10 MG TAB PO SCH (22:27)
[2022-07-14] MEDS: HYDROcodone-ACET 10/325MG TAB PO PRN ×4 (01:58→22:25)
[2022-07-14 05:00] VITALS: BP 108/28
[2022-07-14] MEDS: ACCU-CHEK COMFORT CURVE STRIP VI SCH ×4 (06:02→22:06)
[2022-07-14] MEDS: InsuLIN REG 1unit/0.01ml Soln (100units/ml) SC SCH ×4 (06:02→22:00)
[2022-07-14] MEDS: CALCIUM ACETATE 667 MG CAP PO SCH ×3 (06:47→22:24)
[2022-07-14 09:00] VITALS: BP 108/32
[2022-07-14] MEDS: ASPirin-EC 81 mg tab PO SCH (09:05)
[2022-07-14] MEDS: MUPIROCIN 2% OINT 15gm or 22gm FOR MRSA NARES EACHNOSTRI SCH (09:05)
[2022-07-14] MEDS: AMIODARONE HCL 200 MG TAB PO SCH (09:06)
[2022-07-14] MEDS: B-COMPLEX W/ C & FOLIC ACID(NEPHROVITE TAB) PO SCH (09:06)
[2022-07-14] MEDS: ALLOPURINOL 100 MG TAB PO SCH (09:07)
[2022-07-14] MEDS: TICAGRELOR 90 MG TAB PO SCH ×2 (09:07→22:23)
[2022-07-14] MEDS: PARoxetine 20 MG TAB PO SCH (09:07)
[2022-07-14] MEDS: SEVELAMER 800 MG TAB PO SCH ×3 (09:08→17:16)
[2022-07-14] MEDS: CEFTRIAXONE SODIUM 2 GM in D5W 5% 100 ML IV SCH (09:08)
[2022-07-14] MEDS: SODIUM CHLOR 0.9% PF (SALINE LOCK) 10ML VIAL/SYR IV SCH ×2 (09:08→22:07)
[2022-07-14] MEDS ORDERED: DOCUSATE SOD 100 MG CAP PO PRN (09:30)
[2022-07-14] MEDS ORDERED: DOCUSATE SOD 100 MG CAP PO SCH (10:00)
[2022-07-14] MEDS: METOPROLOL TARTRATE 25 MG TAB PO SCH ×2 (10:00→22:00)
[2022-07-14] MEDS: amLODIPine BESYLATE 5 MG TAB PO SCH (10:00)
[2022-07-14] MEDS: LINEZOLID 600MG/300ML 300 ML IV SCH ×2 (11:00→22:23)
[2022-07-14] MEDS: ONDANSETRON HCL 4 MG/2 ML VIAL IV PRN (11:08)
[2022-07-14 13:00] VITALS: BP 122/34
[2022-07-14] MEDS ORDERED: DAKINS HALF STR 0.25% (NaHypochlorite) 473 ML TOPICAL SOL TOP ONE (13:00)
[2022-07-14 16:48] VITALS: BP 120/30
[2022-07-14 22:00] VITALS: BP 112/31
[2022-07-14] MEDS: Fenofibrate 160 MG TAB PO SCH (22:00)
[2022-07-14] MEDS: GABAPENTIN 300 MG CAP PO SCH (22:24)
[2022-07-14] MEDS: PRAVASTATIN SODIUM 20 MG TAB PO SCH (22:24)
[2022-07-14] MEDS: MONTELUKAST SODIUM 10 MG TAB PO SCH (22:24)
[2022-07-15] MEDS: HYDROcodone-ACET 10/325MG TAB PO PRN ×3 (04:56→14:35)
[2022-07-15 05:00] VITALS: BP 102/55
[2022-07-15] MEDS: CALCIUM ACETATE 667 MG CAP PO SCH ×2 (06:54→14:00)
[2022-07-15] MEDS: ACCU-CHEK COMFORT CURVE STRIP VI SCH ×3 (06:54→17:00)
[2022-07-15] MEDS: InsuLIN REG 1unit/0.01ml Soln (100units/ml) SC SCH ×3 (06:54→17:00)
[2022-07-15] MEDS: SEVELAMER 800 MG TAB PO SCH ×3 (08:00→12:00)
[2022-07-15] MEDS: METOPROLOL TARTRATE 25 MG TAB PO SCH (08:13)
[2022-07-15] MEDS: amLODIPine BESYLATE 5 MG TAB PO SCH (08:14)
[2022-07-15 09:00] VITALS: BP 131/44
[2022-07-15] MEDS: LINEZOLID 600MG/300ML 300 ML IV SCH (10:00)
[2022-07-15] MEDS: CEFTRIAXONE SODIUM 2 GM in D5W 5% 100 ML IV SCH (10:04)
[2022-07-15] MEDS: SODIUM CHLOR 0.9% PF (SALINE LOCK) 10ML VIAL/SYR IV SCH (10:05)
[2022-07-15] MEDS: PARoxetine 20 MG TAB PO SCH (10:05)
[2022-07-15] MEDS: ASPirin-EC 81 mg tab PO SCH (10:05)
[2022-07-15] MEDS: TICAGRELOR 90 MG TAB PO SCH (10:05)
[2022-07-15] MEDS: ALLOPURINOL 100 MG TAB PO SCH (10:05)
[2022-07-15] MEDS: B-COMPLEX W/ C & FOLIC ACID(NEPHROVITE TAB) PO SCH (10:05)
[2022-07-15] MEDS: AMIODARONE HCL 200 MG TAB PO SCH (10:18)
[2022-07-15 13:00] VITALS: BP 100/51
[2022-07-15 17:00] VITALS: BP 105/52
[2022-07-16] MEDS ORDERED: SODIUM CHL 0.9% 1000 ML BAG XX ONE (07:00)
[2022-07-16] MEDS ORDERED: EPOETIN ALFA-EPBX 10,000 UNIT/1ML VIAL SC ONE (21:00)
== END 2022-07-15 17:30 | DRG 628 ==
LOC: EDBD 19:10 → ER 19:10 → EDUNIT# 19:10 → CENTRAL 21:17
PROVIDERS: ADMIT Nurse Practitioner Family; ATTEND Family Medicine
PROC: 5A1D70Z Performance of Urinary Filtration, Intermittent, Less than 6 Hours Per Day (ICD-10-PCS; 2022-07-09)
PROC: 0QBM0ZZ Excision of Left Tarsal, Open Approach (ICD-10-PCS; principal; 2022-07-10 12:28)
PROC: 5A1D70Z Performance of Urinary Filtration, Intermittent, Less than 6 Hours Per Day (ICD-10-PCS; 2022-07-11)
PROC: 5A1D70Z Performance of Urinary Filtration, Intermittent, Less than 6 Hours Per Day (ICD-10-PCS; 2022-07-13)
DX: E11.69 Type 2 diabetes mellitus with other specified complication (principal); E43 Unspecified severe protein-calorie malnutrition; L89.313 Pressure ulcer of right buttock, stage 3; E87.1 Hypo-osmolality and hyponatremia; I13.2 Hypertensive heart and chronic kidney disease with heart failure and with stage 5 chronic kidney disease, or end stage renal disease; M86.172 Other acute osteomyelitis, left ankle and foot; N18.6 End stage renal disease; E66.01 Morbid (severe) obesity due to excess calories; E78.5 Hyperlipidemia, unspecified; L89.90 Pressure ulcer of unspecified site, unspecified stage; E88.09 Other disorders of plasma-protein metabolism, not elsewhere classified; J43.9 Emphysema, unspecified; M10.9 Gout, unspecified; F41.9 Anxiety disorder, unspecified; D64.9 Anemia, unspecified; I50.9 Heart failure, unspecified; L89.629 Pressure ulcer of left heel, unspecified stage; M72.9 Fibroblastic disorder, unspecified; Z91.199 Patient's noncompliance with other medical treatment and regimen due to unspecified reason; Z88.0 Allergy status to penicillin; Z79.899 Other long term (current) drug therapy; Z79.82 Long term (current) use of aspirin; Z79.4 Long term (current) use of insulin; Z79.891 Long term (current) use of opiate analgesic; Z74.01 Bed confinement status; Z68.33 Body mass index [BMI] 33.0-33.9, adult; Z82.49 Family history of ischemic heart disease and other diseases of the circulatory system; Z83.3 Family history of diabetes mellitus; Z99.2 Dependence on renal dialysis; L89.322 Pressure ulcer of left buttock, stage 2; E11.622 Type 2 diabetes mellitus with other skin ulcer; E11.22 Type 2 diabetes mellitus with diabetic chronic kidney disease; E11.65 Type 2 diabetes mellitus with hyperglycemia; E11.40 Type 2 diabetes mellitus with diabetic neuropathy, unspecified
CPT/HCPCS: 36415; 36569; 71045; 73700; 80048; 80053; 80061; 80202; 82962; 83036; 84443; 85025; 85049; 85610; 85730; 86850; 86900; 86901; 86920; 87070; 87075; 87077; 87081; 87186; 87205; 87426; 90935; 93005; 93971; 96365; 96375; 97163; C9113; G0378; J0696; J1815; J2250; J2405; J2704; J3490; J7060

== ENCOUNTER 2022-08-02 10:25 | Inpatient (IN) | payer MEDICARE, MEDICAID ==
[~2022-08-02] VITALS: Ht 177.8 cm; Wt 127.1 kg
[2022-08-02] VITALS (9 sets, daily range): BP systolic 109–148; BP diastolic 25–68
[~2022-08-02 10:25] MED LIST changes: +ONDA-144 PO
[2022-08-02 12:03] LABS: Basophils # (auto) 0 10 ^3/uL (0-0.2); Eosinophils # (auto) 0.1 10 ^3/uL (0-0.8); Lymphocytes # (auto) 0.6 10 ^3/uL (0.4-5.4); Monocytes # (auto) 0.1 10 ^3/uL (0-1.3); Neutrophils # (auto) 1.2 10 ^3/uL (1.6-8.6)
[2022-08-02] MEDS: NOREPINEPHRINE 8 MG/250ML KIT 250 ML IV SCH (12:03)
[2022-08-02 12:05] LABS: Basophils % (auto) 1.2 % (0.0-2.0); Eosinophils % (auto) 6.3 % (0.0-7.0); Hematocrit 13.6 % (41.0-53.0); Lymphocytes % (auto) 30.3 % (10.0-50.0); Mean Corpuscular Hemoglobin 33.2 pg (28.0-32.0); Mean Corpuscular Hgb Conc. 33.2 g/dL (32.0-36.0); Monocytes % (auto) 3.7 % (0.0-12.0); Neutrophils % (auto) 58.5 % (37.0-80.0); Red Blood Cells 1.36 10^6/uL (4.5-5.90); Red Cell Distribution Width 16.4 % (11.8-14.3)
[2022-08-02 12:08] LABS: Hemoglobin 4.5 g/dL (13.5-17.5)
[2022-08-02 12:20] LABS: INR 1.26 (0.9-1.15); Partial Thromboplastin Time 39.3 sec (24.6-33.4)
[2022-08-02 12:29] LABS: Albumin 2.2 g/dL (3.4-5.0); Calcium 8.4 mg/dL (8.5-10.1); Potassium 3.3 mmol/L (3.5-5.1)
[2022-08-02 12:32] LABS: BUN/Creatinine Ratio 4.9 (10.0-20.0); Bilirubin, Total 0.5 mg/dL (0.2-1.0); Total Protein 4.8 g/dL (6.4-8.2)
[2022-08-02] MEDS ORDERED: HYDROcodone-ACET 10/325MG TAB PO ONE (16:00)
[2022-08-02] MEDS ORDERED: DEXTROSE (50%) 50ML SYRG IV PRN (16:30)
[2022-08-02] MEDS ORDERED: DOCUSATE SOD 100 MG CAP PO PRN (16:30)
[2022-08-02] MEDS ORDERED: ONDANSETRON HCL 4 MG/2 ML VIAL IV PRN (16:30)
[2022-08-02] MEDS ORDERED: ERGOCALCIFEROL 50,000 UNIT(1.25MG) CAP PO SCH (16:30)
[2022-08-02] MEDS: ACCU-CHEK COMFORT CURVE STRIP VI SCH (18:00)
[2022-08-02] MEDS: SEVELAMER 800 MG TAB PO SCH (19:08)
[2022-08-02] MEDS: InsuLIN REG 1unit/0.01ml Soln (100units/ml) SC SCH (19:10)
[2022-08-02 21:06] LABS: Hematocrit 16.5 % (41.0-53.0)
[2022-08-02 21:45] LABS: Hemoglobin 5.6 g/dL (13.5-17.5)
[2022-08-02] MEDS: CALCIUM ACETATE 667 MG CAP PO SCH (23:05)
[2022-08-02] MEDS: GABAPENTIN 300 MG CAP PO SCH (23:05)
[2022-08-02] MEDS: MONTELUKAST SODIUM 10 MG TAB PO SCH (23:05)
[2022-08-02] MEDS: ATORVASTATIN 20 MG TAB PO SCH (23:05)
[2022-08-02] MEDS: MORPHINE SULFATE INJ 2 MG/ml SYRG IV PRN (23:06)
[2022-08-03] VITALS (19 sets, daily range): BP systolic 115–151; BP diastolic 17–78
[2022-08-03] MEDS: ACCU-CHEK COMFORT CURVE STRIP VI SCH ×4 (00:33→18:14)
[2022-08-03] MEDS: InsuLIN REG 1unit/0.01ml Soln (100units/ml) SC SCH ×4 (00:33→18:00)
[2022-08-03] MEDS: FAMOTIDINE (10MG/ML) 2ML VL IV SCH ×3 (00:47→22:39)
[2022-08-03 05:41] LABS: Albumin 2.1 g/dL (3.4-5.0); Calcium 8.4 mg/dL (8.5-10.1); Potassium 3.5 mmol/L (3.5-5.1)
[2022-08-03 05:44] LABS: BUN/Creatinine Ratio 4.8 (10.0-20.0); Total Protein 4.8 g/dL (6.4-8.2)
[2022-08-03] MEDS: CALCIUM ACETATE 667 MG CAP PO SCH ×3 (06:00→22:39)
[2022-08-03 06:25] LABS: Basophils # (auto) 0 10 ^3/uL (0-0.2); Basophils % (auto) 0.9 % (0.0-2.0); Eosinophils # (auto) 0.1 10 ^3/uL (0-0.8); Eosinophils % (auto) 5.8 % (0.0-7.0); Hematocrit 18.9 % (41.0-53.0); Lymphocytes # (auto) 0.7 10 ^3/uL (0.4-5.4); Mean Corpuscular Hemoglobin 32.2 pg (28.0-32.0); Mean Corpuscular Hgb Conc. 33.7 g/dL (32.0-36.0); Mean Corpuscular Volume 95.8 fL (80.0-100.0); Monocytes # (auto) 0.1 10 ^3/uL (0-1.3); Monocytes % (auto) 3.6 % (0.0-12.0); Neutrophils # (auto) 1.5 10 ^3/uL (1.6-8.6); Neutrophils % (auto) 61.7 % (37.0-80.0); Nucleated Red Blood Cells % 0.1 %; Red Blood Cells 1.97 10^6/uL (4.5-5.90); White Blood Cell 2.5 10^3/uL (4.4-10.8)
[2022-08-03 06:32] LABS: Hemoglobin 6.3 g/dL (13.5-17.5)
[2022-08-03] MEDS: MORPHINE SULFATE INJ 2 MG/ml SYRG IV PRN (07:43)
[2022-08-03] MEDS: PANTOPRAZOLE 40 MG/10 ML VIAL INJ IV SCH (08:52)
[2022-08-03] MEDS: SEVELAMER 800 MG TAB PO SCH ×3 (08:53→18:14)
[2022-08-03] MEDS: B-COMPLEX W/ C & FOLIC ACID(NEPHROVITE TAB) PO SCH (08:53)
[2022-08-03] MEDS: AMIODARONE HCL 200 MG TAB PO SCH (08:53)
[2022-08-03] MEDS: LORATADINE 10 MG TAB PO SCH (08:54)
[2022-08-03] MEDS: PARoxetine 20 MG TAB PO SCH (08:54)
[2022-08-03] MEDS: NOREPINEPHRINE 8 MG/250ML KIT 250 ML IV SCH (11:30)
[2022-08-03 13:21] LABS: Basophils # (auto) 0 10 ^3/uL (0-0.2); Eosinophils # (auto) 0.2 10 ^3/uL (0-0.8); Hemoglobin 7.4 g/dL (13.5-17.5); Lymphocytes # (auto) 0.8 10 ^3/uL (0.4-5.4); Mean Corpuscular Hgb Conc. 32.9 g/dL (32.0-36.0); Monocytes # (auto) 0.1 10 ^3/uL (0-1.3); Neutrophils # (auto) 1.5 10 ^3/uL (1.6-8.6); Nucleated Red Blood Cells % 0.2 %
[2022-08-03 13:23] LABS: Hematocrit 22.5 % (41.0-53.0); Lymphocytes % (auto) 30.3 % (10.0-50.0); Mean Corpuscular Hemoglobin 30.9 pg (28.0-32.0); Mean Corpuscular Volume 93.7 fL (80.0-100.0); Monocytes % (auto) 3.2 % (0.0-12.0); Neutrophils % (auto) 59.5 % (37.0-80.0); Red Cell Distribution Width 16.9 % (11.8-14.3); White Blood Cell 2.5 10^3/uL (4.4-10.8)
[2022-08-03 13:45] LABS: Albumin 2.2 g/dL (3.4-5.0); Calcium 8.7 mg/dL (8.5-10.1); Potassium 3.6 mmol/L (3.5-5.1)
[2022-08-03 13:55] LABS: Bilirubin, Total 0.9 mg/dL (0.2-1.0); CRP High Sensitivity 5.79 mg/dL (< 0.3); Pre Albumin 8.1 mg/dL (20.0-40.0)
[2022-08-03 14:02] LABS: Ferritin 1138.9 ng/mL (10-322)
[2022-08-03] MEDS: HYDROcodone-ACET 5/325MG TAB PO PRN (20:08)
[2022-08-03] MEDS: ATORVASTATIN 20 MG TAB PO SCH (22:39)
[2022-08-03] MEDS: GABAPENTIN 300 MG CAP PO SCH (22:39)
[2022-08-03] MEDS: MONTELUKAST SODIUM 10 MG TAB PO SCH (22:39)
[2022-08-04] VITALS (7 sets, daily range): BP systolic 104–142; BP diastolic 38–79
[2022-08-04] MEDS: ACCU-CHEK COMFORT CURVE STRIP VI SCH ×5 (00:04→23:33)
[2022-08-04] MEDS: InsuLIN REG 1unit/0.01ml Soln (100units/ml) SC SCH ×5 (00:05→23:29)
[2022-08-04] MEDS: methylPREDNISolone SOD SUCC 125 MG/2 ML VL IV SCH ×5 (00:24→23:42)
[2022-08-04 01:20] LABS: Hematocrit 24.6 % (41.0-53.0); Hemoglobin 8.4 g/dL (13.5-17.5)
[2022-08-04 03:24] LABS: Basophils # (auto) 0 10 ^3/uL (0-0.2); Basophils % (auto) 0.5 % (0.0-2.0); Eosinophils # (auto) 0 10 ^3/uL (0-0.8); Eosinophils % (auto) 1.2 % (0.0-7.0); Hemoglobin 8.3 g/dL (13.5-17.5); Lymphocytes # (auto) 0.3 10 ^3/uL (0.4-5.4); Monocytes # (auto) 0 10 ^3/uL (0-1.3); Neutrophils # (auto) 2.1 10 ^3/uL (1.6-8.6); Neutrophils % (auto) 83.9 % (37.0-80.0)
[2022-08-04 03:26] LABS: Lymphocytes % (auto) 13.5 % (10.0-50.0); Mean Corpuscular Hemoglobin 31.6 pg (28.0-32.0); Mean Corpuscular Hgb Conc. 34.6 g/dL (32.0-36.0); Mean Corpuscular Volume 91.3 fL (80.0-100.0); Monocytes % (auto) 0.9 % (0.0-12.0); Red Blood Cells 2.63 10^6/uL (4.5-5.90); Red Cell Distribution Width 17.3 % (11.8-14.3); White Blood Cell 2.5 10^3/uL (4.4-10.8)
[2022-08-04] MEDS: HYDROcodone-ACET 5/325MG TAB PO PRN ×2 (05:45→23:17)
[2022-08-04] MEDS: CALCIUM ACETATE 667 MG CAP PO SCH ×3 (05:55→22:03)
[2022-08-04] MEDS ORDERED: EPOETIN ALFA-EPBX 10,000 UNIT/1ML VIAL ONE (06:57)
[2022-08-04] MEDS ORDERED: ALBUMIN 25% 100 ML IV ONE (07:00)
[2022-08-04] MEDS ORDERED: SODIUM CHL 0.9% 1000 ML BAG XX ONE (07:00)
[2022-08-04] MEDS: LORATADINE 10 MG TAB PO SCH (08:00)
[2022-08-04] MEDS: SEVELAMER 800 MG TAB PO SCH ×3 (08:00→22:00)
[2022-08-04] MEDS: FAMOTIDINE (10MG/ML) 2ML VL IV SCH ×2 (10:23→22:07)
[2022-08-04] MEDS: B-COMPLEX W/ C & FOLIC ACID(NEPHROVITE TAB) PO SCH (10:24)
[2022-08-04] MEDS: AMIODARONE HCL 200 MG TAB PO SCH (10:24)
[2022-08-04] MEDS: PANTOPRAZOLE 40 MG/10 ML VIAL INJ IV SCH (10:24)
[2022-08-04] MEDS: PARoxetine 20 MG TAB PO SCH (10:24)
[2022-08-04] MEDS: NOREPINEPHRINE 8 MG/250ML KIT 250 ML IV SCH (11:30)
[2022-08-04] MEDS ORDERED: LEVOTHYROXINE SODIUM 25 MCG TAB PO ONE (11:45)
[2022-08-04] MEDS ORDERED: LEVOTHYROXINE SODIUM 112 MCG TAB PO ONE (11:45)
[2022-08-04] MEDS ORDERED: EPOETIN ALFA-EPBX 10,000 UNIT/1ML VIAL SC ONE (21:00)
[2022-08-04] MEDS: NYSTATIN TOPICAL POWDER 15GM TOP SCH (22:00)
[2022-08-04] MEDS: GABAPENTIN 300 MG CAP PO SCH (22:01)
[2022-08-04] MEDS: ATORVASTATIN 20 MG TAB PO SCH (22:02)
[2022-08-04] MEDS: MONTELUKAST SODIUM 10 MG TAB PO SCH (22:02)
[2022-08-05 04:44] VITALS: BP 114/46
[2022-08-05] MEDS: methylPREDNISolone SOD SUCC 125 MG/2 ML VL IV SCH ×4 (06:06→23:20)
[2022-08-05] MEDS: CALCIUM ACETATE 667 MG CAP PO SCH ×3 (06:06→23:17)
[2022-08-05] MEDS: ACCU-CHEK COMFORT CURVE STRIP VI SCH ×4 (06:13→23:20)
[2022-08-05] MEDS: InsuLIN REG 1unit/0.01ml Soln (100units/ml) SC SCH ×4 (06:27→22:52)
[2022-08-05] MEDS: LEVOTHYROXINE SODIUM 25 MCG TAB PO SCH (06:36)
[2022-08-05] MEDS: LEVOTHYROXINE SODIUM 112 MCG TAB PO SCH (06:36)
[2022-08-05] MEDS: SEVELAMER 800 MG TAB PO SCH ×3 (08:00→18:16)
[2022-08-05] MEDS: LORATADINE 10 MG TAB PO SCH (08:00)
[2022-08-05 08:35] LABS: Free T4 (Free Thyroxine) 0.89 ng/dL (0.89-1.76)
[2022-08-05 08:36] LABS: Folate (Folic Acid) 4.84 ng/mL (5.38-24)
[2022-08-05 08:51] VITALS: BP 120/40
[2022-08-05 09:39] LABS: Basophils # (auto) 0 10 ^3/uL (0-0.2); Eosinophils # (auto) 0 10 ^3/uL (0-0.8); Lymphocytes # (auto) 0.3 10 ^3/uL (0.4-5.4); Monocytes # (auto) 0 10 ^3/uL (0-1.3); Neutrophils % (auto) 85.8 % (37.0-80.0); Red Cell Distribution Width 17.6 % (11.8-14.3); White Blood Cell 2.3 10^3/uL (4.4-10.8)
[2022-08-05 09:41] LABS: Hematocrit 23.5 % (41.0-53.0); Hemoglobin 7.9 g/dL (13.5-17.5); Lymphocytes % (auto) 13.8 % (10.0-50.0); Mean Corpuscular Hgb Conc. 33.5 g/dL (32.0-36.0); Mean Corpuscular Volume 92.4 fL (80.0-100.0); Monocytes % (auto) 0.4 % (0.0-12.0); Nucleated Red Blood Cells % 0.2 %; Red Blood Cells 2.55 10^6/uL (4.5-5.90)
[2022-08-05 10:02] LABS: % Iron Saturation 109.9 % (20-55)
[2022-08-05 10:06] LABS: Potassium 3.7 mmol/L (3.5-5.1)
[2022-08-05] MEDS: NOREPINEPHRINE 8 MG/250ML KIT 250 ML IV SCH (11:30)
[2022-08-05] MEDS: FAMOTIDINE (10MG/ML) 2ML VL IV SCH ×2 (11:55→23:16)
[2022-08-05] MEDS: B-COMPLEX W/ C & FOLIC ACID(NEPHROVITE TAB) PO SCH (11:56)
[2022-08-05] MEDS: PARoxetine 20 MG TAB PO SCH (11:56)
[2022-08-05] MEDS: PANTOPRAZOLE 40 MG/10 ML VIAL INJ IV SCH (11:56)
[2022-08-05] MEDS: AMIODARONE HCL 200 MG TAB PO SCH (11:57)
[2022-08-05] MEDS: HYDROcodone-ACET 5/325MG TAB PO PRN ×2 (12:50→17:00)
[2022-08-05 13:00] VITALS: BP 102/54
[2022-08-05 13:27] LABS: Hepatitis C Antibody Negative (Negative)
[2022-08-05 17:01] VITALS: BP 109/34
[2022-08-05] MEDS: NYSTATIN TOPICAL POWDER 15GM TOP SCH ×2 (18:15→23:15)
[2022-08-05 22:00] VITALS: BP 118/32
[2022-08-05] MEDS: ATORVASTATIN 20 MG TAB PO SCH (23:16)
[2022-08-05] MEDS: GABAPENTIN 300 MG CAP PO SCH (23:17)
[2022-08-05] MEDS: MONTELUKAST SODIUM 10 MG TAB PO SCH (23:19)
[2022-08-06 05:00] VITALS: BP 121/36
[2022-08-06] MEDS: InsuLIN REG 1unit/0.01ml Soln (100units/ml) SC SCH ×4 (06:17→23:40)
[2022-08-06] MEDS: CALCIUM ACETATE 667 MG CAP PO SCH ×3 (06:18→21:25)
[2022-08-06] MEDS: ACCU-CHEK COMFORT CURVE STRIP VI SCH ×4 (06:18→23:31)
[2022-08-06] MEDS: methylPREDNISolone SOD SUCC 125 MG/2 ML VL IV SCH ×4 (06:19→23:26)
[2022-08-06] MEDS: LEVOTHYROXINE SODIUM 25 MCG TAB PO SCH (06:19)
[2022-08-06] MEDS: LEVOTHYROXINE SODIUM 112 MCG TAB PO SCH (06:20)
[2022-08-06] MEDS ORDERED: SODIUM CHL 0.9% 1000 ML BAG XX ONE (07:00)
[2022-08-06 08:41] VITALS: BP 133/38
[2022-08-06] MEDS ORDERED: ALBUMIN 25% 100 ML IV ONE ×2 (11:00)
[2022-08-06 11:08] LABS: Hemoglobin 7.6 g/dL (13.5-17.5)
[2022-08-06 11:12] LABS: Hematocrit 22.6 % (41.0-53.0); Mean Corpuscular Hemoglobin 31.1 pg (28.0-32.0); Mean Corpuscular Hgb Conc. 33.8 g/dL (32.0-36.0); Mean Corpuscular Volume 91.9 fL (80.0-100.0); Red Blood Cells 2.46 10^6/uL (4.5-5.90)
[2022-08-06 11:26] LABS: Potassium 3.2 mmol/L (3.5-5.1)
[2022-08-06 11:34] LABS: Albumin 2.8 g/dL (3.4-5.0); BUN/Creatinine Ratio 7.1 (10.0-20.0); Bilirubin, Total 0.8 mg/dL (0.2-1.0); Calcium 8.6 mg/dL (8.5-10.1); Total Protein 5.7 g/dL (6.4-8.2)
[2022-08-06] MEDS: SEVELAMER 800 MG TAB PO SCH ×3 (12:00→18:00)
[2022-08-06 12:02] LABS: Band Neutrophils % (manual) 2; Basophils % (manual) 0 (0.0-2.0); Blast Cells 0; Eosinophils % (manual) 0 (0-7); Lymphocytes % (manual) 15 (10.0-50.0); Metamyelocytes % 0; Myelocytes % 0; Promyelocytes % 0; Reactive Lymphocytes 0; White Blood Cell 1.2 10^3/uL (4.4-10.8)
[2022-08-06 12:03] LABS: Monocytes % (manual) 2 (0-12)
[2022-08-06 13:00] VITALS: BP 118/23
[2022-08-06] MEDS: PANTOPRAZOLE 40 MG/10 ML VIAL INJ IV SCH (16:15)
[2022-08-06] MEDS: FAMOTIDINE (10MG/ML) 2ML VL IV SCH ×2 (16:15→21:25)
[2022-08-06] MEDS: PARoxetine 20 MG TAB PO SCH (16:16)
[2022-08-06] MEDS: B-COMPLEX W/ C & FOLIC ACID(NEPHROVITE TAB) PO SCH (16:16)
[2022-08-06] MEDS: AMIODARONE HCL 200 MG TAB PO SCH (16:17)
[2022-08-06] MEDS: NYSTATIN TOPICAL POWDER 15GM TOP SCH ×2 (16:17→22:15)
[2022-08-06 17:00] VITALS: BP 115/36
[2022-08-06] MEDS: HYDROcodone-ACET 5/325MG TAB PO PRN (19:48)
[2022-08-06] MEDS ORDERED: EPOETIN ALFA-EPBX 10,000 UNIT/1ML VIAL SC ONE (21:00)
[2022-08-06] MEDS: GABAPENTIN 300 MG CAP PO SCH (21:24)
[2022-08-06] MEDS: ATORVASTATIN 20 MG TAB PO SCH (21:25)
[2022-08-06] MEDS: MONTELUKAST SODIUM 10 MG TAB PO SCH (21:25)
[2022-08-06 22:00] VITALS: BP 116/34
[2022-08-07 05:00] VITALS: BP 100/30
[2022-08-07 06:02] LABS: Basophils # (auto) 0 10 ^3/uL (0-0.2); Basophils % (auto) 0.1 % (0.0-2.0); Eosinophils # (auto) 0 10 ^3/uL (0-0.8); Eosinophils % (auto) 0.1 % (0.0-7.0); Lymphocytes # (auto) 0.2 10 ^3/uL (0.4-5.4); Monocytes # (auto) 0 10 ^3/uL (0-1.3); Neutrophils # (auto) 1.6 10 ^3/uL (1.6-8.6)
[2022-08-07 06:04] LABS: Hematocrit 22.4 % (41.0-53.0); Hemoglobin 7.6 g/dL (13.5-17.5); Lymphocytes % (auto) 12.8 % (10.0-50.0); Mean Corpuscular Hemoglobin 31.6 pg (28.0-32.0); Mean Corpuscular Hgb Conc. 33.8 g/dL (32.0-36.0); Mean Corpuscular Volume 93.5 fL (80.0-100.0); Monocytes % (auto) 1.3 % (0.0-12.0); Neutrophils % (auto) 85.7 % (37.0-80.0); Nucleated Red Blood Cells % 0.1 %; Red Cell Distribution Width 16.9 % (11.8-14.3)
[2022-08-07] MEDS: LEVOTHYROXINE SODIUM 25 MCG TAB PO SCH (06:09)
[2022-08-07] MEDS: LEVOTHYROXINE SODIUM 112 MCG TAB PO SCH (06:10)
[2022-08-07] MEDS: CALCIUM ACETATE 667 MG CAP PO SCH ×3 (06:10→21:34)
[2022-08-07] MEDS: methylPREDNISolone SOD SUCC 125 MG/2 ML VL IV SCH ×3 (06:10→18:07)
[2022-08-07] MEDS: ACCU-CHEK COMFORT CURVE STRIP VI SCH ×4 (06:17→23:54)
[2022-08-07 06:19] LABS: Albumin 3.2 g/dL (3.4-5.0); Calcium 9.1 mg/dL (8.5-10.1); Potassium 3.8 mmol/L (3.5-5.1)
[2022-08-07 06:21] LABS: BUN/Creatinine Ratio 7.7 (10.0-20.0)
[2022-08-07 06:25] LABS: Total Protein 6.1 g/dL (6.4-8.2)
[2022-08-07] MEDS: InsuLIN REG 1unit/0.01ml Soln (100units/ml) SC SCH ×4 (06:54→23:55)
[2022-08-07 08:31] VITALS: BP 133/47
[2022-08-07] MEDS: B-COMPLEX W/ C & FOLIC ACID(NEPHROVITE TAB) PO SCH (08:32)
[2022-08-07] MEDS: FAMOTIDINE (10MG/ML) 2ML VL IV SCH ×2 (08:32→21:34)
[2022-08-07] MEDS: SEVELAMER 800 MG TAB PO SCH ×3 (08:32→18:07)
[2022-08-07] MEDS: PANTOPRAZOLE 40 MG/10 ML VIAL INJ IV SCH (08:32)
[2022-08-07] MEDS: PARoxetine 20 MG TAB PO SCH (08:32)
[2022-08-07] MEDS: NYSTATIN TOPICAL POWDER 15GM TOP SCH ×2 (08:33→21:34)
[2022-08-07] MEDS: AMIODARONE HCL 200 MG TAB PO SCH (08:33)
[2022-08-07] MEDS ORDERED: ZOLPIDEM TARTRATE 5 MG TAB PO PRN (09:00)
[2022-08-07 09:17] LABS: White Blood Cell 1.9 10^3/uL (4.4-10.8)
[2022-08-07 13:00] VITALS: BP 148/39
[2022-08-07 17:00] VITALS: BP 153/43
[2022-08-07] MEDS: GABAPENTIN 300 MG CAP PO SCH (21:33)
[2022-08-07] MEDS: ATORVASTATIN 20 MG TAB PO SCH (21:33)
[2022-08-07] MEDS: HYDROcodone-ACET 5/325MG TAB PO PRN (21:33)
[2022-08-07] MEDS: MONTELUKAST SODIUM 10 MG TAB PO SCH (21:34)
[2022-08-07 22:00] VITALS: BP 127/39
[2022-08-08] MEDS ORDERED: TEMAZEPAM 15 MG CAP PO ONE (02:30)
[2022-08-08] MEDS: HYDROcodone-ACET 5/325MG TAB PO PRN ×2 (02:58→12:59)
[2022-08-08 05:00] VITALS: BP 151/30
[2022-08-08] MEDS: CALCIUM ACETATE 667 MG CAP PO SCH (05:27)
[2022-08-08] MEDS: ACCU-CHEK COMFORT CURVE STRIP VI SCH ×3 (05:30→17:46)
[2022-08-08] MEDS: InsuLIN REG 1unit/0.01ml Soln (100units/ml) SC SCH ×3 (05:56→17:45)
[2022-08-08 06:05] LABS: Hematocrit 21.9 % (41.0-53.0); Hemoglobin 7.4 g/dL (13.5-17.5); Mean Corpuscular Hemoglobin 31.7 pg (28.0-32.0); Mean Corpuscular Hgb Conc. 33.9 g/dL (32.0-36.0); Mean Corpuscular Volume 93.6 fL (80.0-100.0); Red Blood Cells 2.34 10^6/uL (4.5-5.90); Red Cell Distribution Width 16.4 % (11.8-14.3)
[2022-08-08] MEDS: LEVOTHYROXINE SODIUM 25 MCG TAB PO SCH (06:14)
[2022-08-08] MEDS: LEVOTHYROXINE SODIUM 112 MCG TAB PO SCH (06:14)
[2022-08-08 06:35] LABS: Albumin 3.2 g/dL (3.4-5.0); Calcium 8.9 mg/dL (8.5-10.1); Potassium 3.8 mmol/L (3.5-5.1)
[2022-08-08 06:39] LABS: Total Protein 5.6 g/dL (6.4-8.2)
[2022-08-08] MEDS ORDERED: SODIUM CHL 0.9% 1000 ML BAG XX ONE (07:00)
[2022-08-08] MEDS ORDERED: LIDOCAINE 2%HCL (LOCAL ANESTH.) INJ 10ml MDV ONE (07:11)
[2022-08-08 07:56] LABS: White Blood Cell 1.8 10^3/uL (4.4-10.8)
[2022-08-08 07:57] LABS: Basophils % (manual) 0 (0.0-2.0); Blast Cells 0; Eosinophils % (manual) 0 (0-7); Metamyelocytes % 0; Myelocytes % 0; Promyelocytes % 0; Reactive Lymphocytes 0
[2022-08-08 08:00] VITALS: BP 123/56
[2022-08-08] MEDS ORDERED: fentaNYL CITRATE 100 MCG/2 ML VL IV ONE (08:00)
[2022-08-08] MEDS ORDERED: MIDAZOLAM HCL 2MG/2ML 2ml VIAL (1mg/ml) IV ONE (08:00)
[2022-08-08] MEDS ORDERED: LORazepam 0.5 MG TAB PO PRN (08:30)
[2022-08-08] MEDS ORDERED: DEXTROSE (50%) 50ML SYRG IV PRN (08:30)
[2022-08-08 09:27] LABS: Band Neutrophils % (manual) 2; Lymphocytes % (manual) 23 (10.0-50.0); Monocytes % (manual) 5 (0-12)
[2022-08-08] MEDS ORDERED: ALBUMIN 25% 100 ML IV ONE (10:45)
[2022-08-08 12:00] VITALS: BP 132/40
[2022-08-08] MEDS: PARoxetine 20 MG TAB PO SCH (12:00)
[2022-08-08] MEDS: AMIODARONE HCL 200 MG TAB PO SCH (12:00)
[2022-08-08] MEDS: SEVELAMER 800 MG TAB PO SCH ×3 (12:01→17:44)
[2022-08-08] MEDS: PANTOPRAZOLE 40 MG/10 ML VIAL INJ IV SCH (12:01)
[2022-08-08] MEDS: NYSTATIN TOPICAL POWDER 15GM TOP SCH ×2 (12:01→21:14)
[2022-08-08] MEDS: FAMOTIDINE (10MG/ML) 2ML VL IV SCH ×2 (12:01→21:13)
[2022-08-08] MEDS: B-COMPLEX W/ C & FOLIC ACID(NEPHROVITE TAB) PO SCH (12:01)
[2022-08-08 16:00] VITALS: BP 147/38
[2022-08-08] MEDS ORDERED: EPOETIN ALFA-EPBX 10,000 UNIT/1ML VIAL SC ONE (21:00)
[2022-08-08] MEDS: ATORVASTATIN 20 MG TAB PO SCH (21:13)
[2022-08-08] MEDS: MONTELUKAST SODIUM 10 MG TAB PO SCH (21:14)
[2022-08-08] MEDS: GABAPENTIN 300 MG CAP PO SCH (21:14)
[2022-08-08] MEDS: traZODone HCL 50 MG TAB PO SCH (21:14)
[2022-08-08 22:00] VITALS: BP 134/35
[2022-08-09] MEDS: ACCU-CHEK COMFORT CURVE STRIP VI SCH ×5 (00:08→23:30)
[2022-08-09] MEDS: InsuLIN REG 1unit/0.01ml Soln (100units/ml) SC SCH ×5 (00:11→23:31)
[2022-08-09 05:00] VITALS: BP 131/38
[2022-08-09 05:28] LABS: Basophils # (auto) 0 10 ^3/uL (0-0.2); Eosinophils # (auto) 0 10 ^3/uL (0-0.8); Eosinophils % (auto) 0.1 % (0.0-7.0); Hemoglobin 7.8 g/dL (13.5-17.5); Lymphocytes # (auto) 0.2 10 ^3/uL (0.4-5.4); Monocytes # (auto) 0.3 10 ^3/uL (0-1.3); White Blood Cell 2.9 10^3/uL (4.4-10.8)
[2022-08-09 05:33] LABS: Hematocrit 22.5 % (41.0-53.0); Lymphocytes % (auto) 8.2 % (10.0-50.0); Mean Corpuscular Hemoglobin 31.7 pg (28.0-32.0); Mean Corpuscular Hgb Conc. 34.4 g/dL (32.0-36.0); Mean Corpuscular Volume 92.2 fL (80.0-100.0); Monocytes % (auto) 9.8 % (0.0-12.0); Neutrophils # (auto) 2.4 10 ^3/uL (1.6-8.6); Neutrophils % (auto) 81.9 % (37.0-80.0); Nucleated Red Blood Cells % 0.1 %; Red Blood Cells 2.44 10^6/uL (4.5-5.90)
[2022-08-09 05:35] LABS: Albumin 3.1 g/dL (3.4-5.0); Calcium 8.7 mg/dL (8.5-10.1); Potassium 3.5 mmol/L (3.5-5.1)
[2022-08-09 05:39] LABS: BUN/Creatinine Ratio 9.4 (10.0-20.0); Bilirubin, Total 0.9 mg/dL (0.2-1.0); Total Protein 5.4 g/dL (6.4-8.2)
[2022-08-09] MEDS: LEVOTHYROXINE SODIUM 112 MCG TAB PO SCH (06:22)
[2022-08-09] MEDS: LEVOTHYROXINE SODIUM 25 MCG TAB PO SCH (06:22)
[2022-08-09] MEDS ORDERED: SODIUM CHL 0.9% 1000 ML BAG XX ONE (07:00)
[2022-08-09 08:00] VITALS: BP 131/50
[2022-08-09] MEDS: SEVELAMER 800 MG TAB PO SCH ×3 (08:20→18:20)
[2022-08-09] MEDS: B-COMPLEX W/ C & FOLIC ACID(NEPHROVITE TAB) PO SCH (08:20)
[2022-08-09] MEDS: NYSTATIN TOPICAL POWDER 15GM TOP SCH ×2 (08:20→21:04)
[2022-08-09] MEDS: PARoxetine 20 MG TAB PO SCH (08:20)
[2022-08-09] MEDS: PANTOPRAZOLE 40 MG/10 ML VIAL INJ IV SCH (08:21)
[2022-08-09] MEDS: AMIODARONE HCL 200 MG TAB PO SCH (08:21)
[2022-08-09] MEDS: FAMOTIDINE (10MG/ML) 2ML VL IV SCH ×2 (08:21→21:04)
[2022-08-09] MEDS: MORPHINE SULFATE INJ 2 MG/ml SYRG IV PRN ×2 (10:50→16:15)
[2022-08-09 12:00] VITALS: BP 111/23
[2022-08-09] MEDS: HYDROcodone-ACET 5/325MG TAB PO PRN ×2 (12:59→20:15)
[2022-08-09 16:00] VITALS: BP 118/37
[2022-08-09] MEDS ORDERED: EPOETIN ALFA-EPBX 10,000 UNIT/1ML VIAL SC ONE (21:00)
[2022-08-09] MEDS: MONTELUKAST SODIUM 10 MG TAB PO SCH (21:04)
[2022-08-09] MEDS: GABAPENTIN 300 MG CAP PO SCH (21:04)
[2022-08-09] MEDS: traZODone HCL 50 MG TAB PO SCH (21:05)
[2022-08-09] MEDS: ATORVASTATIN 20 MG TAB PO SCH (21:05)
[2022-08-09 22:00] VITALS: BP 118/25
[2022-08-10] MEDS: HYDROcodone-ACET 5/325MG TAB PO PRN ×3 (00:22→16:12)
[2022-08-10 05:00] VITALS: BP 110/23
[2022-08-10] MEDS: ACCU-CHEK COMFORT CURVE STRIP VI SCH ×3 (06:06→17:38)
[2022-08-10] MEDS: InsuLIN REG 1unit/0.01ml Soln (100units/ml) SC SCH ×3 (06:07→17:39)
[2022-08-10] MEDS: LEVOTHYROXINE SODIUM 112 MCG TAB PO SCH (06:29)
[2022-08-10] MEDS: LEVOTHYROXINE SODIUM 25 MCG TAB PO SCH (06:29)
[2022-08-10 07:56] LABS: Potassium 4.5 mmol/L (3.5-5.1); Sodium 137 mmol/L (136-145)
[2022-08-10 07:57] LABS: Alanine Aminotransferase 33 U/L (16-61); Albumin 1.9 g/dL (3.4-5.0); Alkaline Phosphatase 79 U/L (45-117); Anion Gap 7 (5-15); Aspartate Aminotransferase 26 U/L (15-37); BUN/Creatinine Ratio 8.7 (10.0-20.0); Bilirubin, Total 0.9 mg/dL (0.2-1.0); Blood Urea Nitrogen 47 mg/dL (7-18); Calcium 7.9 mg/dL (8.5-10.1); Carbon Dioxide 26 mmol/L (21-32); Chloride 104 mmol/L (98-107); GFR African American 14 mL/min; GFR Non-African American 12 mL/min; Glucose 199 mg/dL (74-106); Total Protein 4.6 g/dL (6.4-8.2)
[2022-08-10 08:00] VITALS: BP 135/31
[2022-08-10 08:24] VITALS: BP 135/31
[2022-08-10] MEDS: SEVELAMER 800 MG TAB PO SCH ×3 (08:38→17:51)
[2022-08-10] MEDS: PANTOPRAZOLE 40 MG/10 ML VIAL INJ IV SCH (09:34)
[2022-08-10] MEDS: B-COMPLEX W/ C & FOLIC ACID(NEPHROVITE TAB) PO SCH (09:34)
[2022-08-10] MEDS: PARoxetine 20 MG TAB PO SCH (09:34)
[2022-08-10] MEDS: AMIODARONE HCL 200 MG TAB PO SCH (09:34)
[2022-08-10] MEDS: NYSTATIN TOPICAL POWDER 15GM TOP SCH ×2 (09:34→23:09)
[2022-08-10] MEDS: FAMOTIDINE (10MG/ML) 2ML VL IV SCH ×2 (09:34→23:00)
[2022-08-10 09:42] LABS: Basophils # (auto) 0 10 ^3/uL (0-0.2); Eosinophils # (auto) 0 10 ^3/uL (0-0.8); Eosinophils % (auto) 0.1 % (0.0-7.0); Lymphocytes # (auto) 0.6 10 ^3/uL (0.4-5.4); Mean Corpuscular Hemoglobin 31.2 pg (28.0-32.0); Monocytes # (auto) 0.4 10 ^3/uL (0-1.3); Neutrophils # (auto) 3.4 10 ^3/uL (1.6-8.6)
[2022-08-10 09:45] LABS: Basophils % (auto) 0.2 % (0.0-2.0); Hematocrit 24.3 % (41.0-53.0); Hemoglobin 8.2 g/dL (13.5-17.5); Lymphocytes % (auto) 14.2 % (10.0-50.0); Mean Corpuscular Hgb Conc. 33.8 g/dL (32.0-36.0); Mean Corpuscular Volume 92.6 fL (80.0-100.0); Monocytes % (auto) 8.5 % (0.0-12.0); Nucleated Red Blood Cells % 0.2 %; Red Blood Cells 2.63 10^6/uL (4.5-5.90); Red Cell Distribution Width 16.8 % (11.8-14.3); White Blood Cell 4.4 10^3/uL (4.4-10.8)
[2022-08-10 13:00] VITALS: BP 116/23
[2022-08-10 16:59] VITALS: BP 110/34
[2022-08-10 22:00] VITALS: BP 119/32
[2022-08-10] MEDS: GABAPENTIN 300 MG CAP PO SCH (23:00)
[2022-08-10] MEDS: MONTELUKAST SODIUM 10 MG TAB PO SCH (23:01)
[2022-08-10] MEDS: traZODone HCL 50 MG TAB PO SCH (23:01)
[2022-08-10] MEDS: ATORVASTATIN 20 MG TAB PO SCH (23:01)
[2022-08-11] VITALS (10 sets, daily range): BP systolic 85–124; BP diastolic 23–58
[2022-08-11] MEDS: HYDROcodone-ACET 5/325MG TAB PO PRN ×4 (00:11→20:34)
[2022-08-11] MEDS: ACCU-CHEK COMFORT CURVE STRIP VI SCH ×4 (00:12→18:06)
[2022-08-11] MEDS: InsuLIN REG 1unit/0.01ml Soln (100units/ml) SC SCH ×4 (00:22→18:09)
[2022-08-11] MEDS: LEVOTHYROXINE SODIUM 112 MCG TAB PO SCH (06:31)
[2022-08-11] MEDS: LEVOTHYROXINE SODIUM 25 MCG TAB PO SCH (06:31)
[2022-08-11] MEDS ORDERED: SODIUM CHL 0.9% 1000 ML BAG XX ONE (07:00)
[2022-08-11] MEDS: SEVELAMER 800 MG TAB PO SCH ×3 (08:13→18:06)
[2022-08-11] MEDS: ALBUMIN 25% 100 ML IV PRN ×2 (08:30→09:15)
[2022-08-11 08:59] LABS: Basophils # (auto) 0 10 ^3/uL (0-0.2); Eosinophils # (auto) 0.1 10 ^3/uL (0-0.8); Mean Corpuscular Hemoglobin 31.1 pg (28.0-32.0); Mean Corpuscular Hgb Conc. 33.6 g/dL (32.0-36.0); Monocytes # (auto) 0.2 10 ^3/uL (0-1.3); Neutrophils % (auto) 75.8 % (37.0-80.0); Nucleated Red Blood Cells % 0.3 %; Red Blood Cells 2.39 10^6/uL (4.5-5.90); White Blood Cell 3.9 10^3/uL (4.4-10.8)
[2022-08-11 09:00] LABS: Basophils % (auto) 0.5 % (0.0-2.0); Eosinophils % (auto) 1.9 % (0.0-7.0); Hematocrit 22.1 % (41.0-53.0); Hemoglobin 7.4 g/dL (13.5-17.5); Lymphocytes # (auto) 0.6 10 ^3/uL (0.4-5.4); Lymphocytes % (auto) 16.5 % (10.0-50.0); Mean Corpuscular Volume 92.7 fL (80.0-100.0); Monocytes % (auto) 5.3 % (0.0-12.0); Red Cell Distribution Width 16.3 % (11.8-14.3)
[2022-08-11 09:16] LABS: Potassium 3.4 mmol/L (3.5-5.1)
[2022-08-11 09:20] LABS: BUN/Creatinine Ratio 8.8 (10.0-20.0); Bilirubin, Total 0.7 mg/dL (0.2-1.0); Total Protein 4.6 g/dL (6.4-8.2)
[2022-08-11] MEDS: PANTOPRAZOLE 40 MG/10 ML VIAL INJ IV SCH (11:54)
[2022-08-11] MEDS: FAMOTIDINE (10MG/ML) 2ML VL IV SCH ×2 (11:54→21:13)
[2022-08-11] MEDS: PARoxetine 20 MG TAB PO SCH (11:54)
[2022-08-11] MEDS: AMIODARONE HCL 200 MG TAB PO SCH (11:54)
[2022-08-11] MEDS: B-COMPLEX W/ C & FOLIC ACID(NEPHROVITE TAB) PO SCH (11:54)
[2022-08-11] MEDS: NYSTATIN TOPICAL POWDER 15GM TOP SCH ×2 (12:06→21:25)
[2022-08-11] MEDS: ALPRAZolam 0.5 MG TAB PO SCH ×2 (15:03→21:12)
[2022-08-11] MEDS ORDERED: EPOETIN ALFA-EPBX 10,000 UNIT/1ML VIAL SC ONE (21:00)
[2022-08-11] MEDS: MONTELUKAST SODIUM 10 MG TAB PO SCH (21:11)
[2022-08-11] MEDS: GABAPENTIN 300 MG CAP PO SCH (21:12)
[2022-08-11] MEDS: traZODone HCL 50 MG TAB PO SCH (21:12)
[2022-08-11] MEDS: ATORVASTATIN 20 MG TAB PO SCH (21:13)
[2022-08-12] VITALS (9 sets, daily range): BP systolic 99–124; BP diastolic 21–35
[2022-08-12] MEDS: ACCU-CHEK COMFORT CURVE STRIP VI SCH ×4 (00:18→17:54)
[2022-08-12] MEDS: InsuLIN REG 1unit/0.01ml Soln (100units/ml) SC SCH ×4 (00:19→17:55)
[2022-08-12] MEDS: ALPRAZolam 0.5 MG TAB PO SCH ×2 (05:39→13:58)
[2022-08-12 05:49] LABS: Basophils # (auto) 0 10 ^3/uL (0-0.2); Eosinophils # (auto) 0.2 10 ^3/uL (0-0.8); Hemoglobin 7.2 g/dL (13.5-17.5); Monocytes # (auto) 0.4 10 ^3/uL (0-1.3); Neutrophils # (auto) 3.2 10 ^3/uL (1.6-8.6); White Blood Cell 4.4 10^3/uL (4.4-10.8)
[2022-08-12 05:52] LABS: Basophils % (auto) 0.1 % (0.0-2.0); Hematocrit 21.3 % (41.0-53.0); Lymphocytes # (auto) 0.6 10 ^3/uL (0.4-5.4); Lymphocytes % (auto) 13.1 % (10.0-50.0); Mean Corpuscular Hemoglobin 31.2 pg (28.0-32.0); Mean Corpuscular Hgb Conc. 33.7 g/dL (32.0-36.0); Mean Corpuscular Volume 92.7 fL (80.0-100.0); Monocytes % (auto) 9.4 % (0.0-12.0); Neutrophils % (auto) 73.4 % (37.0-80.0); Nucleated Red Blood Cells % 0.1 %; Red Cell Distribution Width 16.5 % (11.8-14.3)
[2022-08-12 05:54] LABS: Albumin 2.8 g/dL (3.4-5.0); Calcium 7.6 mg/dL (8.5-10.1); Potassium 3.3 mmol/L (3.5-5.1)
[2022-08-12 05:58] LABS: BUN/Creatinine Ratio 8.2 (10.0-20.0); Bilirubin, Total 0.6 mg/dL (0.2-1.0); Total Protein 4.6 g/dL (6.4-8.2)
[2022-08-12] MEDS ORDERED: ALBUMIN 25% 100 ML IV ONE ×2 (06:12→07:00)
[2022-08-12] MEDS: LEVOTHYROXINE SODIUM 112 MCG TAB PO SCH (06:33)
[2022-08-12] MEDS: LEVOTHYROXINE SODIUM 25 MCG TAB PO SCH (06:33)
[2022-08-12] MEDS ORDERED: SODIUM CHL 0.9% 1000 ML BAG XX ONE (07:00)
[2022-08-12] MEDS: SEVELAMER 800 MG TAB PO SCH ×3 (08:22→18:00)
[2022-08-12] MEDS: MIDODRINE HCL 10 MG TAB PO PRN (08:22)
[2022-08-12] MEDS: PANTOPRAZOLE 40 MG/10 ML VIAL INJ IV SCH (10:00)
[2022-08-12] MEDS: AMIODARONE HCL 200 MG TAB PO SCH (10:00)
[2022-08-12] MEDS: FAMOTIDINE (10MG/ML) 2ML VL IV SCH (10:00)
[2022-08-12] MEDS: NYSTATIN TOPICAL POWDER 15GM TOP SCH ×2 (10:47→22:00)
[2022-08-12] MEDS: PARoxetine 20 MG TAB PO SCH (10:47)
[2022-08-12] MEDS: B-COMPLEX W/ C & FOLIC ACID(NEPHROVITE TAB) PO SCH (10:47)
[2022-08-12] MEDS: HYDROcodone-ACET 5/325MG TAB PO PRN (12:17)
[2022-08-12] MEDS ORDERED: EPOETIN ALFA-EPBX 4,000 UNIT/ML VIAL SC ONE (21:00)
[2022-08-13] VITALS (7 sets, daily range): BP systolic 80–128; BP diastolic 25–45
[2022-08-13] MEDS: traZODone HCL 50 MG TAB PO SCH ×2 (00:22→23:39)
[2022-08-13] MEDS: GABAPENTIN 300 MG CAP PO SCH ×2 (00:23→23:37)
[2022-08-13] MEDS: MONTELUKAST SODIUM 10 MG TAB PO SCH ×2 (00:23→23:39)
[2022-08-13] MEDS: ATORVASTATIN 20 MG TAB PO SCH ×2 (00:25→23:39)
[2022-08-13] MEDS: ALPRAZolam 0.5 MG TAB PO SCH ×5 (00:26→23:40)
[2022-08-13] MEDS: FAMOTIDINE (10MG/ML) 2ML VL IV SCH ×3 (00:28→23:44)
[2022-08-13] MEDS: InsuLIN REG 1unit/0.01ml Soln (100units/ml) SC SCH ×4 (00:35→18:41)
[2022-08-13] MEDS: ACCU-CHEK COMFORT CURVE STRIP VI SCH ×4 (07:15→18:26)
[2022-08-13] MEDS: LEVOTHYROXINE SODIUM 112 MCG TAB PO SCH (08:06)
[2022-08-13] MEDS: LEVOTHYROXINE SODIUM 25 MCG TAB PO SCH (08:06)
[2022-08-13] MEDS: SEVELAMER 800 MG TAB PO SCH ×3 (08:57→18:43)
[2022-08-13] MEDS: PARoxetine 20 MG TAB PO SCH (08:58)
[2022-08-13] MEDS: B-COMPLEX W/ C & FOLIC ACID(NEPHROVITE TAB) PO SCH (08:58)
[2022-08-13] MEDS: NYSTATIN TOPICAL POWDER 15GM TOP SCH ×2 (09:02→23:43)
[2022-08-13] MEDS: MIDODRINE HCL 10 MG TAB PO PRN (09:06)
[2022-08-13] MEDS: PANTOPRAZOLE 40 MG/10 ML VIAL INJ IV SCH (09:06)
[2022-08-13] MEDS: AMIODARONE HCL 200 MG TAB PO SCH (09:07)
[2022-08-13 09:49] LABS: Basophils # (auto) 0 10 ^3/uL (0-0.2); Eosinophils # (auto) 0.2 10 ^3/uL (0-0.8); Lymphocytes # (auto) 0.7 10 ^3/uL (0.4-5.4); Monocytes # (auto) 0.5 10 ^3/uL (0-1.3); Monocytes % (auto) 11.9 % (0.0-12.0); White Blood Cell 4.3 10^3/uL (4.4-10.8)
[2022-08-13 09:51] LABS: Eosinophils % (auto) 3.6 % (0.0-7.0); Hematocrit 20.7 % (41.0-53.0); Lymphocytes % (auto) 16.2 % (10.0-50.0); Mean Corpuscular Hemoglobin 31.1 pg (28.0-32.0); Mean Corpuscular Hgb Conc. 32.7 g/dL (32.0-36.0); Mean Corpuscular Volume 95.2 fL (80.0-100.0); Neutrophils % (auto) 68.3 % (37.0-80.0); Red Blood Cells 2.17 10^6/uL (4.5-5.90); Red Cell Distribution Width 17.1 % (11.8-14.3)
[2022-08-13 10:12] LABS: Potassium 3.5 mmol/L (3.5-5.1)
[2022-08-13 10:20] LABS: Hemoglobin 6.8 g/dL (13.5-17.5)
[2022-08-13 10:24] LABS: Albumin 2.6 g/dL (3.4-5.0); BUN/Creatinine Ratio 7.3 (10.0-20.0); Bilirubin, Total 0.5 mg/dL (0.2-1.0); Calcium 7.6 mg/dL (8.5-10.1); Total Protein 4.5 g/dL (6.4-8.2)
[2022-08-13] MEDS: HYDROcodone-ACET 5/325MG TAB PO PRN (15:24)
[2022-08-14] MEDS: ACCU-CHEK COMFORT CURVE STRIP VI SCH ×4 (01:26→18:35)
[2022-08-14] MEDS: InsuLIN REG 1unit/0.01ml Soln (100units/ml) SC SCH ×4 (01:28→18:35)
[2022-08-14 04:46] VITALS: BP 112/30
[2022-08-14 06:09] LABS: Hemoglobin 7.8 g/dL (13.5-17.5); Mean Corpuscular Hemoglobin 31.8 pg (28.0-32.0)
[2022-08-14 06:11] LABS: Hematocrit 23.5 % (41.0-53.0); Mean Corpuscular Hgb Conc. 33.1 g/dL (32.0-36.0); Mean Corpuscular Volume 96.1 fL (80.0-100.0); Red Blood Cells 2.45 10^6/uL (4.5-5.90); Red Cell Distribution Width 17.8 % (11.8-14.3); White Blood Cell 6.2 10^3/uL (4.4-10.8)
[2022-08-14 06:15] LABS: Albumin 2.9 g/dL (3.4-5.0); Calcium 7.8 mg/dL (8.5-10.1); Potassium 3.8 mmol/L (3.5-5.1)
[2022-08-14 06:19] LABS: Basophils % (manual) 0 (0.0-2.0); Blast Cells 0; Metamyelocytes % 0; Myelocytes % 0; Promyelocytes % 0
[2022-08-14 06:21] LABS: BUN/Creatinine Ratio 6.2 (10.0-20.0); Bilirubin, Total 0.9 mg/dL (0.2-1.0); Total Protein 4.5 g/dL (6.4-8.2)
[2022-08-14] MEDS: LEVOTHYROXINE SODIUM 25 MCG TAB PO SCH (07:23)
[2022-08-14] MEDS: LEVOTHYROXINE SODIUM 112 MCG TAB PO SCH (07:23)
[2022-08-14] MEDS: ALPRAZolam 0.5 MG TAB PO SCH ×3 (07:24→21:18)
[2022-08-14] MEDS: SEVELAMER 800 MG TAB PO SCH ×3 (07:25→18:35)
[2022-08-14 08:04] LABS: Band Neutrophils % (manual) 1; Eosinophils % (manual) 3 (0-7); Lymphocytes % (manual) 18 (10.0-50.0); Monocytes % (manual) 4 (0-12); Reactive Lymphocytes 3
[2022-08-14 09:00] VITALS: BP 134/46
[2022-08-14] MEDS: PANTOPRAZOLE 40 MG/10 ML VIAL INJ IV SCH (09:47)
[2022-08-14] MEDS: B-COMPLEX W/ C & FOLIC ACID(NEPHROVITE TAB) PO SCH (09:48)
[2022-08-14] MEDS: NYSTATIN TOPICAL POWDER 15GM TOP SCH ×2 (09:48→22:04)
[2022-08-14] MEDS: PARoxetine 20 MG TAB PO SCH (09:48)
[2022-08-14] MEDS: FAMOTIDINE (10MG/ML) 2ML VL IV SCH ×2 (09:48→21:16)
[2022-08-14] MEDS: AMIODARONE HCL 200 MG TAB PO SCH (09:54)
[2022-08-14] MEDS: HYDROcodone-ACET 5/325MG TAB PO PRN (10:18)
[2022-08-14 13:00] VITALS: BP 109/35
[2022-08-14 17:00] VITALS: BP 126/36
[2022-08-14] MEDS: MONTELUKAST SODIUM 10 MG TAB PO SCH (21:16)
[2022-08-14] MEDS: ATORVASTATIN 20 MG TAB PO SCH (21:17)
[2022-08-14] MEDS: traZODone HCL 50 MG TAB PO SCH (21:17)
[2022-08-14] MEDS: GABAPENTIN 300 MG CAP PO SCH (21:18)
[2022-08-15] MEDS: HYDROcodone-ACET 5/325MG TAB PO PRN ×2 (00:47→14:44)
[2022-08-15] MEDS: ACCU-CHEK COMFORT CURVE STRIP VI SCH ×5 (00:48→23:09)
[2022-08-15] MEDS: InsuLIN REG 1unit/0.01ml Soln (100units/ml) SC SCH ×5 (00:51→23:13)
[2022-08-15 05:00] VITALS: BP 112/45
[2022-08-15 05:24] LABS: Hemoglobin 7.9 g/dL (13.5-17.5)
[2022-08-15 05:27] LABS: Hematocrit 23.8 % (41.0-53.0); Mean Corpuscular Hemoglobin 32.1 pg (28.0-32.0); Mean Corpuscular Hgb Conc. 33.2 g/dL (32.0-36.0); Mean Corpuscular Volume 96.7 fL (80.0-100.0); Red Blood Cells 2.47 10^6/uL (4.5-5.90); Red Cell Distribution Width 18.8 % (11.8-14.3); White Blood Cell 7.7 10^3/uL (4.4-10.8)
[2022-08-15 05:31] LABS: Albumin 2.4 g/dL (3.4-5.0); Calcium 8.1 mg/dL (8.5-10.1); Potassium 3.9 mmol/L (3.5-5.1)
[2022-08-15 05:37] LABS: BUN/Creatinine Ratio 6.9 (10.0-20.0); Bilirubin, Total 1.1 mg/dL (0.2-1.0); Total Protein 4.8 g/dL (6.4-8.2)
[2022-08-15 05:48] LABS: Basophils % (manual) 0 (0.0-2.0)
[2022-08-15 05:49] LABS: Blast Cells 0; Metamyelocytes % 0; Myelocytes % 0; Promyelocytes % 0; Reactive Lymphocytes 0
[2022-08-15] MEDS: LEVOTHYROXINE SODIUM 25 MCG TAB PO SCH (06:16)
[2022-08-15] MEDS: LEVOTHYROXINE SODIUM 112 MCG TAB PO SCH (06:16)
[2022-08-15] MEDS: ALPRAZolam 0.5 MG TAB PO SCH ×3 (06:16→22:00)
[2022-08-15] MEDS ORDERED: SODIUM CHL 0.9% 1000 ML BAG XX ONE (07:00)
[2022-08-15] MEDS: SEVELAMER 800 MG TAB PO SCH ×3 (08:00→19:04)
[2022-08-15 08:31] LABS: Band Neutrophils % (manual) 1; Eosinophils % (manual) 4 (0-7); Lymphocytes % (manual) 15 (10.0-50.0); Monocytes % (manual) 6 (0-12)
[2022-08-15 09:11] VITALS: BP 118/46
[2022-08-15] MEDS: FAMOTIDINE (10MG/ML) 2ML VL IV SCH ×2 (10:38→23:09)
[2022-08-15] MEDS: PANTOPRAZOLE 40 MG/10 ML VIAL INJ IV SCH (10:38)
[2022-08-15] MEDS: ALBUMIN 25% 100 ML IV PRN ×3 (11:12→16:31)
[2022-08-15 12:00] VITALS: BP 125/36
[2022-08-15] MEDS: AMIODARONE HCL 200 MG TAB PO SCH (15:29)
[2022-08-15] MEDS: PARoxetine 20 MG TAB PO SCH (15:30)
[2022-08-15] MEDS: B-COMPLEX W/ C & FOLIC ACID(NEPHROVITE TAB) PO SCH (15:30)
[2022-08-15] MEDS: NYSTATIN TOPICAL POWDER 15GM TOP SCH ×2 (15:42→22:00)
[2022-08-15 16:00] VITALS: BP 157/42
[2022-08-15] MEDS ORDERED: EPOETIN ALFA-EPBX 10,000 UNIT/1ML VIAL SC ONE (21:00)
[2022-08-15] MEDS: ATORVASTATIN 20 MG TAB PO SCH (22:00)
[2022-08-15] MEDS: GABAPENTIN 300 MG CAP PO SCH (22:00)
[2022-08-15] MEDS: traZODone HCL 50 MG TAB PO SCH (22:00)
[2022-08-15] MEDS: MONTELUKAST SODIUM 10 MG TAB PO SCH (22:00)
[2022-08-16 05:00] VITALS: BP 98/45
[2022-08-16] MEDS: ALPRAZolam 0.5 MG TAB PO SCH ×3 (06:00→21:03)
[2022-08-16] MEDS: InsuLIN REG 1unit/0.01ml Soln (100units/ml) SC SCH ×3 (06:51→17:54)
[2022-08-16] MEDS: ACCU-CHEK COMFORT CURVE STRIP VI SCH ×3 (06:51→17:50)
[2022-08-16] MEDS: HYDROcodone-ACET 5/325MG TAB PO PRN (07:02)
[2022-08-16] MEDS: LEVOTHYROXINE SODIUM 25 MCG TAB PO SCH (07:34)
[2022-08-16] MEDS: LEVOTHYROXINE SODIUM 112 MCG TAB PO SCH (07:34)
[2022-08-16 07:44] LABS: Basophils # (auto) 0 10 ^3/uL (0-0.2); Basophils % (auto) 0.2 % (0.0-2.0); Eosinophils # (auto) 0.2 10 ^3/uL (0-0.8); Eosinophils % (auto) 2.4 % (0.0-7.0); Hemoglobin 7.7 g/dL (13.5-17.5); Lymphocytes # (auto) 0.8 10 ^3/uL (0.4-5.4); Monocytes # (auto) 0.7 10 ^3/uL (0-1.3)
[2022-08-16 07:47] LABS: Hematocrit 23.4 % (41.0-53.0); Lymphocytes % (auto) 11.6 % (10.0-50.0); Mean Corpuscular Hemoglobin 31.2 pg (28.0-32.0); Mean Corpuscular Hgb Conc. 32.8 g/dL (32.0-36.0); Mean Corpuscular Volume 95.1 fL (80.0-100.0); Monocytes % (auto) 10.3 % (0.0-12.0); Neutrophils % (auto) 75.5 % (37.0-80.0); Nucleated Red Blood Cells % 0.2 %; Red Blood Cells 2.46 10^6/uL (4.5-5.90); Red Cell Distribution Width 19.1 % (11.8-14.3); White Blood Cell 6.7 10^3/uL (4.4-10.8)
[2022-08-16 08:00] LABS: Potassium 3.4 mmol/L (3.5-5.1)
[2022-08-16 08:17] LABS: Albumin 3.2 g/dL (3.4-5.0); Bilirubin, Total 1.8 mg/dL (0.2-1.0); Calcium 8.1 mg/dL (8.5-10.1); Total Protein 4.8 g/dL (6.4-8.2)
[2022-08-16] MEDS: SEVELAMER 800 MG TAB PO SCH ×3 (08:17→17:50)
[2022-08-16] MEDS: FAMOTIDINE (10MG/ML) 2ML VL IV SCH ×2 (09:58→21:02)
[2022-08-16] MEDS: PANTOPRAZOLE 40 MG/10 ML VIAL INJ IV SCH (09:58)
[2022-08-16] MEDS: AMIODARONE HCL 200 MG TAB PO SCH (09:58)
[2022-08-16] MEDS: PARoxetine 20 MG TAB PO SCH (09:59)
[2022-08-16] MEDS: B-COMPLEX W/ C & FOLIC ACID(NEPHROVITE TAB) PO SCH (09:59)
[2022-08-16] MEDS ORDERED: SODIUM CHL 0.9% 1000 ML BAG XX ONE (18:00)
[2022-08-16] MEDS ORDERED: EPOETIN ALFA-EPBX 10,000 UNIT/1ML VIAL SC ONE (21:00)
[2022-08-16] MEDS: GABAPENTIN 300 MG CAP PO SCH (21:03)
[2022-08-16] MEDS: traZODone HCL 50 MG TAB PO SCH (21:03)
[2022-08-16] MEDS: MONTELUKAST SODIUM 10 MG TAB PO SCH (21:03)
[2022-08-16] MEDS: ATORVASTATIN 20 MG TAB PO SCH (21:03)
[2022-08-16 22:00] VITALS: BP 142/32
[2022-08-17] MEDS: ACCU-CHEK COMFORT CURVE STRIP VI SCH ×5 (00:24→23:08)
[2022-08-17] MEDS: InsuLIN REG 1unit/0.01ml Soln (100units/ml) SC SCH ×5 (00:26→22:37)
[2022-08-17 05:00] VITALS: BP 130/25
[2022-08-17 05:12] LABS: Basophils # (auto) 0 10 ^3/uL (0-0.2); Basophils % (auto) 0.4 % (0.0-2.0); Eosinophils # (auto) 0.1 10 ^3/uL (0-0.8); Hemoglobin 7.7 g/dL (13.5-17.5); Lymphocytes # (auto) 0.5 10 ^3/uL (0.4-5.4); Nucleated Red Blood Cells % 0.1 %
[2022-08-17 05:15] LABS: Eosinophils % (auto) 2.7 % (0.0-7.0); Hematocrit 23.1 % (41.0-53.0); Lymphocytes % (auto) 9.3 % (10.0-50.0); Mean Corpuscular Hemoglobin 31.2 pg (28.0-32.0); Mean Corpuscular Hgb Conc. 33.2 g/dL (32.0-36.0); Mean Corpuscular Volume 93.9 fL (80.0-100.0); Monocytes # (auto) 0.6 10 ^3/uL (0-1.3); Neutrophils % (auto) 76.6 % (37.0-80.0); Red Blood Cells 2.46 10^6/uL (4.5-5.90); Red Cell Distribution Width 18.4 % (11.8-14.3); White Blood Cell 5.2 10^3/uL (4.4-10.8)
[2022-08-17 05:55] LABS: Potassium 3.2 mmol/L (3.5-5.1)
[2022-08-17] MEDS: ALPRAZolam 0.5 MG TAB PO SCH ×3 (06:00→22:00)
[2022-08-17 06:04] LABS: Albumin 2.7 g/dL (3.4-5.0); Bilirubin, Total 0.8 mg/dL (0.2-1.0); Calcium 8.5 mg/dL (8.5-10.1); Total Protein 5.1 g/dL (6.4-8.2)
[2022-08-17] MEDS: LEVOTHYROXINE SODIUM 112 MCG TAB PO SCH (06:32)
[2022-08-17] MEDS: LEVOTHYROXINE SODIUM 25 MCG TAB PO SCH (06:32)
[2022-08-17 08:00] VITALS: BP 108/32
[2022-08-17 09:00] VITALS: BP 108/32
[2022-08-17] MEDS: B-COMPLEX W/ C & FOLIC ACID(NEPHROVITE TAB) PO SCH (09:16)
[2022-08-17] MEDS: SEVELAMER 800 MG TAB PO SCH ×3 (09:16→17:38)
[2022-08-17] MEDS: FAMOTIDINE (10MG/ML) 2ML VL IV SCH ×2 (09:16→23:06)
[2022-08-17] MEDS: AMIODARONE HCL 200 MG TAB PO SCH (09:18)
[2022-08-17] MEDS: PARoxetine 20 MG TAB PO SCH (09:18)
[2022-08-17] MEDS: PANTOPRAZOLE 40 MG/10 ML VIAL INJ IV SCH (09:19)
[2022-08-17 13:20] VITALS: BP 119/31
[2022-08-17 17:16] VITALS: BP 130/32
[2022-08-17] MEDS: HYDROcodone-ACET 5/325MG TAB PO PRN (17:39)
[2022-08-17 22:00] VITALS: BP 119/23
[2022-08-17] MEDS: ATORVASTATIN 20 MG TAB PO SCH (23:07)
[2022-08-17] MEDS: GABAPENTIN 300 MG CAP PO SCH (23:07)
[2022-08-17] MEDS: MONTELUKAST SODIUM 10 MG TAB PO SCH (23:08)
[2022-08-17] MEDS: traZODone HCL 50 MG TAB PO SCH (23:09)
[2022-08-18 05:00] VITALS: BP 144/34
[2022-08-18] MEDS: InsuLIN REG 1unit/0.01ml Soln (100units/ml) SC SCH ×4 (05:49→23:54)
[2022-08-18] MEDS: ACCU-CHEK COMFORT CURVE STRIP VI SCH ×4 (05:49→23:50)
[2022-08-18] MEDS: ALPRAZolam 0.5 MG TAB PO SCH ×3 (05:50→21:24)
[2022-08-18] MEDS: LEVOTHYROXINE SODIUM 112 MCG TAB PO SCH (05:50)
[2022-08-18] MEDS: LEVOTHYROXINE SODIUM 25 MCG TAB PO SCH (05:51)
[2022-08-18] MEDS ORDERED: SODIUM CHL 0.9% 1000 ML BAG XX ONE (07:00)
[2022-08-18] MEDS: SEVELAMER 800 MG TAB PO SCH ×3 (08:59→17:54)
[2022-08-18 09:00] VITALS: BP 135/38
[2022-08-18] MEDS: PANTOPRAZOLE 40 MG/10 ML VIAL INJ IV SCH (11:04)
[2022-08-18] MEDS: FAMOTIDINE (10MG/ML) 2ML VL IV SCH ×2 (11:04→21:22)
[2022-08-18] MEDS: AMIODARONE HCL 200 MG TAB PO SCH (11:04)
[2022-08-18] MEDS: HYDROcodone-ACET 5/325MG TAB PO PRN ×2 (11:04→23:50)
[2022-08-18] MEDS: B-COMPLEX W/ C & FOLIC ACID(NEPHROVITE TAB) PO SCH (11:05)
[2022-08-18] MEDS: PARoxetine 20 MG TAB PO SCH (11:05)
[2022-08-18 13:00] VITALS: BP 127/35
[2022-08-18 17:00] VITALS: BP 117/28
[2022-08-18] MEDS: ATORVASTATIN 20 MG TAB PO SCH (21:23)
[2022-08-18] MEDS: traZODone HCL 50 MG TAB PO SCH (21:23)
[2022-08-18] MEDS: GABAPENTIN 300 MG CAP PO SCH (21:24)
[2022-08-18] MEDS: MONTELUKAST SODIUM 10 MG TAB PO SCH (21:25)
[2022-08-18 21:48] VITALS: BP 131/32
[2022-08-19 05:00] VITALS: BP 117/28
[2022-08-19] MEDS: ALPRAZolam 0.5 MG TAB PO SCH ×3 (05:44→22:00)
[2022-08-19] MEDS: ACCU-CHEK COMFORT CURVE STRIP VI SCH ×4 (05:44→23:01)
[2022-08-19] MEDS: InsuLIN REG 1unit/0.01ml Soln (100units/ml) SC SCH ×4 (05:51→23:00)
[2022-08-19] MEDS: LEVOTHYROXINE SODIUM 25 MCG TAB PO SCH (06:03)
[2022-08-19] MEDS: LEVOTHYROXINE SODIUM 112 MCG TAB PO SCH (06:03)
[2022-08-19] MEDS: SEVELAMER 800 MG TAB PO SCH ×3 (08:00→18:00)
[2022-08-19 09:00] VITALS: BP 122/21
[2022-08-19] MEDS: PARoxetine 20 MG TAB PO SCH (09:41)
[2022-08-19] MEDS: B-COMPLEX W/ C & FOLIC ACID(NEPHROVITE TAB) PO SCH (09:41)
[2022-08-19] MEDS: PANTOPRAZOLE 40 MG/10 ML VIAL INJ IV SCH (09:41)
[2022-08-19] MEDS: FAMOTIDINE (10MG/ML) 2ML VL IV SCH ×2 (09:41→22:35)
[2022-08-19] MEDS: AMIODARONE HCL 200 MG TAB PO SCH (09:59)
[2022-08-19 10:06] LABS: Basophils # (auto) 0 10 ^3/uL (0-0.2); Eosinophils # (auto) 0.1 10 ^3/uL (0-0.8); Eosinophils % (auto) 3.5 % (0.0-7.0); Hematocrit 23.1 % (41.0-53.0); Hemoglobin 7.6 g/dL (13.5-17.5); Lymphocytes # (auto) 0.6 10 ^3/uL (0.4-5.4); Monocytes # (auto) 0.5 10 ^3/uL (0-1.3); White Blood Cell 3.8 10^3/uL (4.4-10.8)
[2022-08-19 10:08] LABS: Basophils % (auto) 0.8 % (0.0-2.0); Lymphocytes % (auto) 15.6 % (10.0-50.0); Mean Corpuscular Hemoglobin 30.8 pg (28.0-32.0); Mean Corpuscular Hgb Conc. 32.8 g/dL (32.0-36.0); Mean Corpuscular Volume 93.7 fL (80.0-100.0); Neutrophils # (auto) 2.5 10 ^3/uL (1.6-8.6); Neutrophils % (auto) 66.1 % (37.0-80.0); Nucleated Red Blood Cells % 0.1 %; Red Blood Cells 2.46 10^6/uL (4.5-5.90); Red Cell Distribution Width 18.8 % (11.8-14.3)
[2022-08-19 11:04] LABS: Albumin 2.5 g/dL (3.4-5.0); Calcium 8.4 mg/dL (8.5-10.1); Potassium 3.4 mmol/L (3.5-5.1)
[2022-08-19 11:07] LABS: BUN/Creatinine Ratio 5.9 (10.0-20.0)
[2022-08-19 13:00] VITALS: BP 113/36
[2022-08-19 16:51] VITALS: BP 113/45
[2022-08-19] MEDS ORDERED: DAKINS QUARTER STR 0.125% (NaHypochlorite) 473 ML TOPICAL SOL TOP ONE (17:15)
[2022-08-19 22:00] VITALS: BP 106/30
[2022-08-19] MEDS: traZODone HCL 50 MG TAB PO SCH (22:00)
[2022-08-19] MEDS: GABAPENTIN 300 MG CAP PO SCH (22:00)
[2022-08-19] MEDS: ATORVASTATIN 20 MG TAB PO SCH (22:00)
[2022-08-19] MEDS: MONTELUKAST SODIUM 10 MG TAB PO SCH (22:00)
[2022-08-19] MEDS: DAKINS QUARTER STR 0.125% (NaHypochlorite) 473 ML TOPICAL SOL TOP SCH (22:35)
[2022-08-19] MEDS: HYDROcodone-ACET 5/325MG TAB PO PRN (23:14)
[2022-08-20 05:00] VITALS: BP 106/25
[2022-08-20] MEDS: ALPRAZolam 0.5 MG TAB PO SCH ×2 (05:22→13:50)
[2022-08-20] MEDS: LEVOTHYROXINE SODIUM 112 MCG TAB PO SCH (06:27)
[2022-08-20] MEDS: ACCU-CHEK COMFORT CURVE STRIP VI SCH ×2 (06:27→11:55)
[2022-08-20] MEDS: LEVOTHYROXINE SODIUM 25 MCG TAB PO SCH (06:27)
[2022-08-20] MEDS: InsuLIN REG 1unit/0.01ml Soln (100units/ml) SC SCH ×2 (06:39→11:57)
[2022-08-20 09:00] VITALS: BP 119/30
[2022-08-20] MEDS: PANTOPRAZOLE 40 MG/10 ML VIAL INJ IV SCH (09:52)
[2022-08-20] MEDS: FAMOTIDINE (10MG/ML) 2ML VL IV SCH (09:52)
[2022-08-20] MEDS: SEVELAMER 800 MG TAB PO SCH ×2 (09:53→11:57)
[2022-08-20] MEDS: PARoxetine 20 MG TAB PO SCH (09:53)
[2022-08-20] MEDS: DAKINS QUARTER STR 0.125% (NaHypochlorite) 473 ML TOPICAL SOL TOP SCH (09:53)
[2022-08-20] MEDS: AMIODARONE HCL 200 MG TAB PO SCH (09:53)
[2022-08-20] MEDS: B-COMPLEX W/ C & FOLIC ACID(NEPHROVITE TAB) PO SCH (09:53)
[2022-08-20] MEDS ORDERED: SODIUM CHL 0.9% 1000 ML BAG XX ONE (11:45)
[2022-08-20 13:00] VITALS: BP 123/44
[2022-08-20 17:00] VITALS: BP 113/27
[2022-08-20] MEDS ORDERED: EPOETIN ALFA-EPBX 10,000 UNIT/1ML VIAL SC ONE (21:00)
== END 2022-08-20 18:20 | DRG 802 ==
LOC: ER 10:25 → EDBD 10:25 → OVERFLOW 16:22 → TELE-CENTR 08-04 18:39
PROVIDERS: ADMIT Nurse Practitioner Family; ATTEND Family Medicine
PROC: 30233N1 Transfusion of Nonautologous Red Blood Cells into Peripheral Vein, Percutaneous Approach (ICD-10-PCS; principal; 2022-08-02)
PROC: 30233R1 Transfusion of Nonautologous Platelets into Peripheral Vein, Percutaneous Approach (ICD-10-PCS; 2022-08-03)
PROC: 5A1D70Z Performance of Urinary Filtration, Intermittent, Less than 6 Hours Per Day (ICD-10-PCS; 2022-08-04)
PROC: 5A1D70Z Performance of Urinary Filtration, Intermittent, Less than 6 Hours Per Day (ICD-10-PCS; 2022-08-06)
PROC: 5A1D70Z Performance of Urinary Filtration, Intermittent, Less than 6 Hours Per Day (ICD-10-PCS; 2022-08-08)
PROC: 079T3ZX Drainage of Bone Marrow, Percutaneous Approach, Diagnostic (ICD-10-PCS; 2022-08-08)
PROC: 07DR3ZX Extraction of Iliac Bone Marrow, Percutaneous Approach, Diagnostic (ICD-10-PCS; 2022-08-08)
PROC: 5A1D70Z Performance of Urinary Filtration, Intermittent, Less than 6 Hours Per Day (ICD-10-PCS; 2022-08-11)
PROC: 5A1D70Z Performance of Urinary Filtration, Intermittent, Less than 6 Hours Per Day (ICD-10-PCS; 2022-08-12)
PROC: 5A1D70Z Performance of Urinary Filtration, Intermittent, Less than 6 Hours Per Day (ICD-10-PCS; 2022-08-13)
PROC: 5A1D70Z Performance of Urinary Filtration, Intermittent, Less than 6 Hours Per Day (ICD-10-PCS; 2022-08-15)
PROC: 0JBR0ZZ Excision of Left Foot Subcutaneous Tissue and Fascia, Open Approach (ICD-10-PCS; 2022-08-16)
PROC: 5A1D70Z Performance of Urinary Filtration, Intermittent, Less than 6 Hours Per Day (ICD-10-PCS; 2022-08-18)
PROC: 5A1D70Z Performance of Urinary Filtration, Intermittent, Less than 6 Hours Per Day (ICD-10-PCS; 2022-08-20)
DX: D62 Acute posthemorrhagic anemia (principal); E43 Unspecified severe protein-calorie malnutrition; N18.6 End stage renal disease; I13.2 Hypertensive heart and chronic kidney disease with heart failure and with stage 5 chronic kidney disease, or end stage renal disease; N25.81 Secondary hyperparathyroidism of renal origin; F32.1 Major depressive disorder, single episode, moderate; I50.30 Unspecified diastolic (congestive) heart failure; Z20.822 Contact with and (suspected) exposure to COVID-19; Z66 Do not resuscitate; D63.8 Anemia in other chronic diseases classified elsewhere; E11.22 Type 2 diabetes mellitus with diabetic chronic kidney disease; E11.40 Type 2 diabetes mellitus with diabetic neuropathy, unspecified; E11.65 Type 2 diabetes mellitus with hyperglycemia; E87.6 Hypokalemia; J45.909 Unspecified asthma, uncomplicated; F32.A Depression, unspecified; E11.51 Type 2 diabetes mellitus with diabetic peripheral angiopathy without gangrene; D61.818 Other pancytopenia; B19.20 Unspecified viral hepatitis C without hepatic coma; E11.621 Type 2 diabetes mellitus with foot ulcer; L08.9 Local infection of the skin and subcutaneous tissue, unspecified; L97.519 Non-pressure chronic ulcer of other part of right foot with unspecified severity; L97.529 Non-pressure chronic ulcer of other part of left foot with unspecified severity; Z74.01 Bed confinement status
CPT/HCPCS: 10005; 36415; 36430; 71045; 72170; 72192; 73630; 73700; 77012; 78582; 80048; 80053; 82040; 82140; 82270; 82607; 82668; 82728; 82746; 82962; 83010; 83540; 83550; 83605; 83615; 83880; 84439; 84443; 84484; 85007; 85014; 85018; 85025; 85027; 85045; 85362; 85379; 85384; 85610; 85652; 85730; 86141; 86803; 86850; 86880; 86900; 86901; 86920; 87081; 87340; 87426; 90935; 93970; 93971; 96365; 97110; 97163; 97530; 99291; C9113; G0378; J1815; J2001; J2250; J2405; J3490; P9047

== ENCOUNTER 2022-10-29 23:26 | Inpatient (IN) | payer OTHER, MEDICAID ==
[~2022-10-29] VITALS: Ht 185.4 cm; Wt 90.9 kg
[~2022-10-29 23:26] MED LIST changes: +AMIO200T13 PO; -AMIO200T4 PO; -AMLO-496 PO; +AMLO1TAB23 PO; +DOCU-265 PO; -DOCU100C10 PO; +GABA-1250 PO; -GABA300C10 PO; -SIMV-8 PO; +SIMV20TA20 PO; +TRAZ-228 PO; -TRAZ100T3 PO
[2022-10-30 00:03] LABS: Basophils # (auto) 0 10 ^3/uL (0-0.2); Eosinophils # (auto) 0 10 ^3/uL (0-0.8); Eosinophils % (auto) 0.1 % (0.0-7.0); Hemoglobin 7.8 g/dL (13.5-17.5); Lymphocytes # (auto) 0.8 10 ^3/uL (0.4-5.4); Monocytes # (auto) 0.5 10 ^3/uL (0-1.3); Nucleated Red Blood Cells % 0.2 %
[2022-10-30 00:05] LABS: Basophils % (auto) 0.7 % (0.0-2.0); Hematocrit 27.8 % (41.0-53.0); Lymphocytes % (auto) 11.6 % (10.0-50.0); Mean Corpuscular Hemoglobin 31.3 pg (28.0-32.0); Mean Corpuscular Volume 111.8 fL (80.0-100.0); Monocytes % (auto) 6.9 % (0.0-12.0); Neutrophils # (auto) 5.6 10 ^3/uL (1.6-8.6); Neutrophils % (auto) 80.7 % (37.0-80.0); Red Blood Cells 2.49 10^6/uL (4.5-5.90); Red Cell Distribution Width 19.1 % (11.8-14.3); White Blood Cell 6.9 10^3/uL (4.4-10.8)
[2022-10-30 00:26] LABS: Albumin 2.8 g/dL (3.4-5.0); BUN/Creatinine Ratio 4.3 (10.0-20.0); Calcium 8.7 mg/dL (8.5-10.1); Potassium 4.9 mmol/L (3.5-5.1)
[2022-10-30 00:29] LABS: Bilirubin, Total 0.5 mg/dL (0.2-1.0); Total Protein 5.7 g/dL (6.4-8.2)
[2022-10-30] MEDS ORDERED: SODIUM CHLORIDE 0.9% 500 ML IV ONE (00:30)
[2022-10-30] MEDS ORDERED: ALBUMIN 25% 100 ML IV ONE (00:30)
[2022-10-30 00:50] VITALS: PULSE 72; RESP 16; O2SAT 100
[2022-10-30] MEDS ORDERED: OXYCODONE W/ ACETAMINOPHEN 5/325MG TABLET PO ONE (01:30)
[2022-10-30] MEDS ORDERED: ONDANSETRON HCL 4 MG/2 ML VIAL IV PRN (03:15)
[2022-10-30] MEDS ORDERED: ACETAMINOPHEN 325 MG TAB PO PRN (03:15)
[2022-10-30] MEDS ORDERED: MORPHINE SULFATE INJ 2 MG/ml SYRG IV PRN (03:15)
[2022-10-30] MEDS ORDERED: NITROGLYCERIN 0.4 MG SL TAB SL PRN (03:15)
[2022-10-30] MEDS ORDERED: SODIUM BICARBONATE 8.4 % INJ 50ML VIAL IV ONE (03:15)
[2022-10-30] MEDS ORDERED: MIDODRINE HCL 10 MG TAB PO ONE (03:15)
[2022-10-30] MEDS ORDERED: DEXTROSE (50%) 50ML SYRG IV PRN (03:15)
[2022-10-30] MEDS ORDERED: LEVOTHYROXINE SODIUM 25 MCG TAB PO SCH ×2 (07:00)
[2022-10-30] MEDS ORDERED: ACCU-CHEK COMFORT CURVE STRIP VI SCH (07:00)
[2022-10-30] MEDS ORDERED: LEVOTHYROXINE SODIUM 112 MCG TAB PO SCH (07:00)
[2022-10-30] MEDS ORDERED: InsuLIN REG 1unit/0.01ml Soln (100units/ml) SC SCH (07:00)
[2022-10-30] MEDS ORDERED: SEVELAMER 800 MG TAB PO SCH (08:00)
[2022-10-30] MEDS ORDERED: CALCIUM ACETATE 667 MG CAP PO SCH (08:00)
[2022-10-30 08:15] VITALS: BP 88/26; TEMP 96.1
[2022-10-30 08:20] VITALS: PULSE 55; RESP 15; O2SAT 98
[2022-10-30] MEDS ORDERED: SODIUM BICARBONATE 50ML VIAL 100 ML in D5W 5% 1,000 ML IV SCH (09:00)
[2022-10-30] MEDS ORDERED: PANTOPRAZOLE 40 MG TAB PO SCH (10:00)
[2022-10-30] MEDS ORDERED: TICAGRELOR 90 MG TAB PO SCH (10:00)
[2022-10-30] MEDS ORDERED: SODIUM BICARBONATE 650 MG TAB PO SCH (10:00)
[2022-10-30] MEDS ORDERED: MIDODRINE HCL 10 MG TAB PO SCH (12:00)
[2022-10-30] MEDS ORDERED: ATORVASTATIN 20 MG TAB PO SCH (22:00)
== END 2022-10-30 09:45 | DRG 640 ==
LOC: EDBD 23:26 → ER 23:26 → TELE 10-30 03:17
PROVIDERS: ADMIT Family Medicine; ATTEND Family Medicine
PROC: 5A0935A Assistance with Respiratory Ventilation, Less than 24 Consecutive Hours, High Flow/Velocity Cannula (ICD-10-PCS; principal; 2022-10-30)
DX: E87.70 Fluid overload, unspecified (principal); J96.01 Acute respiratory failure with hypoxia; N18.6 End stage renal disease; I13.2 Hypertensive heart and chronic kidney disease with heart failure and with stage 5 chronic kidney disease, or end stage renal disease; R18.8 Other ascites; E44.0 Moderate protein-calorie malnutrition; J90 Pleural effusion, not elsewhere classified; E87.21 Acute metabolic acidosis; Z66 Do not resuscitate; Z91.158 Patient's noncompliance with renal dialysis for other reason; Z99.2 Dependence on renal dialysis; E11.22 Type 2 diabetes mellitus with diabetic chronic kidney disease; I50.9 Heart failure, unspecified; I95.9 Hypotension, unspecified; D63.8 Anemia in other chronic diseases classified elsewhere; E11.40 Type 2 diabetes mellitus with diabetic neuropathy, unspecified; E78.5 Hyperlipidemia, unspecified; J44.9 Chronic obstructive pulmonary disease, unspecified; Z88.0 Allergy status to penicillin; Z91.199 Patient's noncompliance with other medical treatment and regimen due to unspecified reason; Z68.26 Body mass index [BMI] 26.0-26.9, adult; Z82.49 Family history of ischemic heart disease and other diseases of the circulatory system; Z83.3 Family history of diabetes mellitus; Z88.8 Allergy status to other drugs, medicaments and biological substances
CPT/HCPCS: 36415; 36600; 70450; 71250; 74176; 80053; 82140; 82805; 82962; 83690; 84484; 85025; 93005; 96365; 96375; G0378; P9047